=== PATIENT | male | born 1945 | race Caucasian/White ===

== ENCOUNTER 2017-07-05 08:49 | Outpatient (POV) | payer MEDICARE, OTHER, SELFPAY | END 2017-07-05 12:06 | disposition home or self-care (01) | PROVIDERS: Family Provider Family Medicine; PCP Family Medicine; Visit Provider Podiatrist | DX: L84 Corns and callosities (principal); M21.372 Foot drop, left foot; E11.42 Type 2 diabetes mellitus with diabetic polyneuropathy | CPT/HCPCS: 11056; 99203; G0127 ==

== ENCOUNTER → 2017-08-01 | Outpatient (CLI) | payer MEDICARE, OTHER, SELFPAY | PROVIDERS: Visit Provider Orthopaedic Surgery | DX: M16.11 Unilateral primary osteoarthritis, right hip (principal); Z01.818 Encounter for other preprocedural examination | CPT/HCPCS: 36415; 71020; 80053; 81001; 93005 ==

== ENCOUNTER → 2017-08-02 | Outpatient (CLI) | payer MEDICARE, OTHER, SELFPAY | PROVIDERS: Family Provider Family Medicine; Visit Provider Orthopaedic Surgery | DX: M16.12 Unilateral primary osteoarthritis, left hip (principal) | CPT/HCPCS: 73700 ==

== ENCOUNTER 2017-08-07 06:23 | Inpatient (IN) | payer MEDICARE, OTHER, SELFPAY ==
[2017-08-06 11:04] VITALS: BMI 40.8
[2017-08-07] VITALS (28 sets, daily range): BP systolic 96–165; BP diastolic 45–74; PULSE 64–77; RESP 12–20; TEMP 36.3–43; O2SAT 70–99
[2017-08-07 07:38] LABS: Basophils # 0.1 K/mm3 (0-0.2); Basophils % 1.6 % (0.1-2.0); Eosinophils # 0.6 K/mm3 (0.0-0.4); Eosinophils % 7.4 % (0.1-12.0); Hematocrit 43.3 % (42.0-52.0); Hemoglobin 14.2 g/dL (14.1-18.0); Lymphocytes # 1.8 K/mm3 (0.7-4.5); Lymphocytes % 23.7 K/mm3 (10-50); Mean Corpuscular HGB Conc 32.8 g/dL (31.8-35.4); Mean Corpuscular Hemoglobin 30.5 pg (27.0-31.2); Mean Corpuscular Volume 92.9 fl (80-94); Mean Platelet Volume 7.8 fl (7.4-10.4); Monocytes # 0.6 K/mm3 (0.1-1.0); Monocytes % 8.3 % (1.7-9.3); Neutrophils # 4.6 K/mm3 (1.8-7.8); Platelet Count 344 K/mm3 (142-424); Red Blood Count 4.66 M/mm3 (4.60-6.20); Red Cell Distribution Width 13.5 % (11.5-17.5); White Blood Count 7.7 K/mm3 (4.8-10.8)
--- NOTE | 2017-08-07 09:51 | HMH.ANESCL ---
[facility] Anesthesia Checklist - Airway Assessment C-Spine Mobility Assessed: Yes (MP 2) TMJ Mobility Assessed: Yes Dentition: Dentures-good fit - Anesthesia Plan Anesthesia Risk discussed: Yes Anesthesia Plan: Verified ASA Class: II Anesthesia Type: General [facility] Anesthesia HX Medical History: Reports:: Hypertension Denies:: Diabetes Mellitus Type 1, Diabetes Mellitus Type 2, Seizures Comment: Hx of hepatits as a child, unknown type Comment: dental sx *Family Hx:: Asthma, Diabetes, Heart Attack, Hyperlipidemia, Hypertension, Stroke
--- NOTE | 2017-08-07 09:54 | P.PN_ITS ---
[facility] Anesthesia Checklist - Airway Assessment C-Spine Mobility Assessed: Yes (MP 2) TMJ Mobility Assessed: Yes Dentition: Dentures-good fit - Anesthesia Plan Anesthesia Risk discussed: Yes Anesthesia Plan: Verified ASA Class: II Anesthesia Type: General [facility] Anesthesia HX Medical History: Reports:: Hypertension Denies:: Diabetes Mellitus Type 1, Diabetes Mellitus Type 2, Seizures Comment: Hx of hepatits as a child, unknown type Comment: dental sx *Family Hx:: Asthma, Diabetes, Heart Attack, Hyperlipidemia, Hypertension, Stroke
--- NOTE | 2017-08-07 12:23 | SUR.OPER ---
Addendum entered by Gemma Desai RN 08/07/17 12:42: 1200- WOUND IRRIGATED WITH 17.5ML'S OF BETADINE DILUTED IN 500ML'S OF NORMAL SALINE PER MD Original Note: 0950-2 LAP SPONGES INSERTED INTO LEFT ACETABULUM PER 1015-FAMILY UPDATED AT THIS TIME PER LUCIO REYES 1044-ADDITIONAL ANCEF 1GM IVP ADMINISTERED PER HEATHER FRANK ORDERED PER 1052- 2 ADDITIONAL LAP SPONGES INSERTED INTO LEFT ACETABULUM PER 1105-4 LAP SPONGES REMOVED FROM LEFT ACETABULUM PER 1137-FAMILY UPDATED PER LUCIO CROWDER
--- NOTE | 2017-08-07 12:31 | PC.NURSE ---
0800-#16 LIBERIAN COUDAE MYERS CATHETER INSERTED AT THIS TIME FOR SURGICAL PROCEDURE
--- NOTE | 2017-08-07 13:07 | HMH.ANESI ---
[facility] Anesthesia Record Part I Intake, IV Amount: 3,800 Estimated blood loss (mL): 500 Urine output (mL): 250 Blood Products used (#): none Blood Pressure: 98/47 SaO2: 92 Pulse Rate: 66 Respiratory Rate: 12 Temperature: 97.6 F Patient is:: Drowsy Stable to PACU at:: 13:05
--- NOTE | 2017-08-07 13:09 | HMH.ANESII ---
[facility] Anesthesia Record Part II Discharge Time: 13:35 Destination: floor PACU nurse assessment reviewed?: Yes Patient Condition:: Good Anesthesia Complications:: None
--- NOTE | 2017-08-07 13:12 | XR_ITS ---
XR hip LT 2-3V w/pelvis CLINICAL INDICATION: Follow-up surgery, hip replacement ITS.REASON: postop xrays ORDERING PHYSICIAN: Samm Smith MD PATIENT AGE: 71 years COMPARISON: 07/04/2017 FINDINGS: Status post total hip are placement on the left. There is good alignment of the acetabular and femoral prosthesis. Postsurgical gas is present. Vertical lucency overlies the mid aspect of the left inferior pubic ramus and may be related to overlying gas within a soft tissue increase. Soft tissue gas is present in the lateral hip region. IMPRESSION: 1. Status post left hip replacement. 2. Probable artifact of the left inferior pubic ramus. A nondisplaced fracture could have a similar appearance. Pelvic film may be of further value if clinically warranted
--- NOTE | 2017-08-07 14:17 | XR_ITS ---
XR pelvis 1-2V CLINICAL INDICATION: Follow-up abnormal x-ray, follow-up hip replacement ITS.REASON: postop xray ORDERING PHYSICIAN: Samm Smith MD PATIENT AGE: 71 years COMPARISON: 08/07/2017 FINDINGS: Status post total left hip replacement With good alignment of the prosthesis. The central acetabular screw does extend into the pelvis as the medial aspect of the acetabular cortex by approximately 8 mm. Previously noted lucency along the inferior pubic ramus is not redemonstrated on this exam. This was likely due to an artifact. There are mild osteoarthritic changes of the right hip. IMPRESSION: 1. Status post left hip replacement as described above. 2. No evidence of inferior pubic ramus fracture
[2017-08-07 16:50] LABS: Microscopic,Cath URINE MICROSCOPIC (MICROSCOPIC)
--- NOTE | 2017-08-07 17:12 | HMH.OPNOTE ---
Date of procedure: 08/09/17 Pre-op Diagnosis:: Osteoarthritis left hip Post-op diagnosis:: same Procedure performed:: Uncemented left total hip arthroplasty Surgeon:: Samm Smith MD Pinion Sorter(s):: Dr. Guzman; The help of Dr. Guzman was needed given the complexity and difficulty of the procedure. Anesthesia: GETA, MAC Estimated blood loss (mL): 500 Clinical Note:: Patient is a 71-year-old male who has end-stage osteoarthritis of his LEFT hip unresponsive to conservative management. The arthritis is causing severe pain and significant disability and has not responded well to conservative management. He cannot even take a few steps without pain and he is completely dependent on a Esteban frame for mobilization. The pain also is affecting his lifestyle, activities of daily living and significantly impacting his sleep. He in fact stopped working because of the significant pain and disability. He is also at a high risk of falls from his arthritis. His imaging shows marked progression of his arthritis with destruction of the femoral head as well as superolateral acetabulum. Therefore a total hip arthroplasty is indicated to relieve pain and the help prevent the disability and risk of falls. Operative findings:: Intraoperatively, end-stage osteoarthritis of the hip joint was noted. The femoral head was grossly arthritic and misshapen and osteophytes were noted on both the acetabulum and the femoral head. 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 The capsule was thickened and range of motion was markedly decreased. The bone quality was excellent. Operative note:: On the day of the procedure the patient and family were met in the preoperative area and the patient was positively identified. A physical examination was performed and documented. The operative site was appropriately marked and initialed by me. I again reviewed the diagnosis, natural history and management options in detail including both nonsurgical and surgical. We discussed the proposed surgery, risks and benefits and alternatives in detail. The complications discussed include but are not limited to infection, injury to nerves, blood vessels and tendons, DVT and PE, fracture, limb length inequality, dislocation, implant malpositioning, implant failure, squeaking, loosening, acetabular wear, osteolysis, periprosthetic femur fracture, heterotopic ossification, abductor weakness and limp, incomplete relief of pain, likely need for further surgery in future including revision, anesthetic complications including heart attack, stroke and even . We also discussed the postoperative recovery and rehabilitation. He verbalized a good understanding and wished to proceed with the proposed surgery. The consent form was reviewed and signed. The patient was brought to the operating room and a general anesthesia was administered by the property administrator. The patient was then positioned in the RIGHT lateral decubitus position with the LEFT hip facing up. We used Wixon hip positioner for this. All the bony prominences were appropriately padded. The LEFT hip was then prepped with isopropyl alcohol followed by chlorhexidine and draped in the usual sterile fashion. The entire operative team wore isolation suits and the Operating Room traffic was controlled. The skin incision was marked for a posterior approach to the hip joint. The perineum and the operative site were sealed off with Ioban drape. A preprocedure timeout was performed as per hospital protocol identifying the patient, correct surgery and correct site. Administration of 2 g of prophylactic IV Ancef was confirmed with the anesthetic team. Before completion of the procedure 1 more gram of IV Ancef was administered as the operating time was over 2 hours. We have also administered 1g of IV tranexamic acid just before the incision and one more gram at the time of wound closure, to reduce the bleeding. A posterior halley
--- NOTE | 2017-08-07 17:15 | P.OP_ITS ---
Date of procedure: 08/09/17 Pre-op Diagnosis:: Osteoarthritis left hip Post-op diagnosis:: same Procedure performed:: Uncemented left total hip arthroplasty Surgeon:: Samm Smith MD Forensic Accountant(s):: Dr. Guzman; The help of Dr. Guzman was needed given the complexity and difficulty of the procedure. Anesthesia: GETA, MAC Estimated blood loss (mL): 500 Clinical Note:: Patient is a 71-year-old male who has end-stage osteoarthritis of his LEFT hip unresponsive to conservative management. The arthritis is causing severe pain and significant disability and has not responded well to conservative management. He cannot even take a few steps without pain and he is completely dependent on a Esteban frame for mobilization. The pain also is affecting his lifestyle, activities of daily living and significantly impacting his sleep. He in fact stopped working because of the significant pain and disability. He is also at a high risk of falls from his arthritis. His imaging shows marked progression of his arthritis with destruction of the femoral head as well as superolateral acetabulum. Therefore a total hip arthroplasty is indicated to relieve pain and the help prevent the disability and risk of falls. Operative findings:: Intraoperatively, end-stage osteoarthritis of the hip joint was noted. The femoral head was grossly arthritic and misshapen and osteophytes were noted on both the acetabulum and the femoral head. 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 The capsule was thickened and range of motion was markedly decreased. The bone quality was excellent. Operative note:: On the day of the procedure the patient and family were met in the preoperative area and the patient was positively identified. A physical examination was performed and documented. The operative site was appropriately marked and initialed by me. I again reviewed the diagnosis, natural history and management options in detail including both nonsurgical and surgical. We discussed the proposed surgery, risks and benefits and alternatives in detail. The complications discussed include but are not limited to infection, injury to nerves, blood vessels and tendons, DVT and PE, fracture, limb length inequality , dislocation, implant malpositioning, implant failure, squeaking, loosening, acetabular wear, osteolysis, periprosthetic femur fracture, heterotopic ossification, abductor weakness and limp, incomplete relief of pain, likely need for further surgery in future including revision, anesthetic complications including heart attack, stroke and even . We also discussed the postoperative recovery and rehabilitation. He verbalized a good understanding and wished to proceed with the proposed surgery. The consent form was reviewed and signed. The patient was brought to the operating room and a general anesthesia was administered by the civil transportation engineer. The patient was then positioned in the RIGHT lateral decubitus position with the LEFT hip facing up. We used Bubblixon hip positioner for this. All the bony prominences were appropriately padded. The LEFT hip was then prepped with isopropyl alcohol followed by chlorhexidine and draped in the usual sterile fashion. The entire operative team wore isolation suits and the Operating Room traffic was controlled. The skin incision was marked for a posterior approach to the hip joint. The perineum and the operative site were sealed off with Ioban drape. A preprocedure timeout was performed as per hospital protocol identifying the patient, correct surgery and correct site. Administration of 2 g of prophylactic IV Ancef was confirmed with the anesthetic team. Before completion of the procedure 1 more gram
--- NOTE | 2017-08-07 17:15 | PC.NURSE ---
08/07/17 at 1455 Pt transported via bed to 2nd floor at this time per LUCIO Wayne and LUCIO Lopez. Pt transported on O2 at 2lpm per nc because has had pain medications while in PACU/ sats lower to mid 90's on room air/ o2 in use for transport as precaution. Pt alert and talking with staff during transfer. Pt left in care of LUCIO Epps at bedside/stable.
--- NOTE | 2017-08-07 17:21 | PC.NURSE ---
08/07/17 1318 Pt was medicated with Morphine 2mg IV for c/o R shoulder pain. Dr. Smith was notified while he was at pt's bedside that pt c/o R shoulder pain. states more than likely due to positioning during surgery while in OR. Pt rates pain 10/10 and is moaning and nearly in tears due to pain. 08/07/17 1323 Pt medicated with Morphine 2mg IV for R shoulder pain rated 10/10. Pt moaning and very restless. 08/07/17 1335 Pt was medicated with Dilaudid 1mg IV for R shoulder pain rated 8/10 at this time. Denies L hip pain 08/07/17 1345 Pt was medicated with Dilaudid 1mg IV for R shoulder pain rated 8/10 at this time. Pt has received total of 2mg Dilaudid in PACU.
--- NOTE | 2017-08-07 17:27 | PC.NURSE ---
08/07/17 1455 Pt has had abductor pillow in use since arrival to PACU. Abductor pillow in use on transfer to 2nd floor as well.
[2017-08-07 18:08] LABS: Appearance,Urine/Cath CLEAR (Clear); Bilirubin,Cath Negative (Negative); Blood, Urine/Cath Negative (Negative); Color,Urine/Cath YELLOW (Yellow); Glucose,Urine/Cath (UA) Negative (Negative); Ketones,Urine/Cath Negative (Negative); Leukocyte Esterase,Cath Negative (Negative); Nitrate,Cath Negative (Negative); PH,Urine/Cath 6.5 (5.0-8.5); Protein,Urine/Cath Negative (Negative); Specific Gravity, Urine/Cath 1.015 (1.005-1.030)
[2017-08-07 18:34] LABS: RBC,Urine/Cath Occasional # /hpf (0-3); Squamous Epithelial Ur./Cath Occasional #/hpf (0-5); WBC,Urine/Cath Occasional #/hpf (0-3)
[2017-08-07 18:35] LABS: Bacteria,Urine/Cath TRACE /lpf; Mucus,Urine/Cath Trace /lpf
--- NOTE | 2017-08-07 18:56 | PC.NURSE ---
PATIENT ADMITTED TODAY WITH LEFT TOTAL HIP ARTHROPATHY , PER DR. DORMAN. PATIENTS DRESSING IS C/D/I. STARTED CORE PILER PUMP ON PATIENT AND HAS HAD NO COMPLAINTS OF PAIN. PATIENT RESTING IN BED , EATING DINNER AT THIS TIME. FAMILY AT BEDSIDE. VITAL SIGNS ARE STABLE, LUNG SOUNDS ARE CLEAR. WILL CONTINUE TO MONITOR AND GIVE REPORT TO ONCOMING NURSE.
[2017-08-08] VITALS (7 sets, daily range): BP systolic 127–155; BP diastolic 52–63; PULSE 69–86; RESP 16–22; TEMP 36.3–36.9; O2SAT 96–98
--- NOTE | 2017-08-08 05:04 | PC.NURSE ---
LAYING IN BED RESTING AT THIS TIME. HAS USED PAIN PUMP A FEW TIMES. STATES PAIN IS MANAGED. DRESSING IS INTACT ON HIP, NO S/SX OF BLEEDING. STATES HAS REST OK THIS SHIFT. LUNGS ARE CLEAR, RESP EVEN AND NONLABORED. HAS ROBERTO INSTRUCTED TO USE INCENTIVE SPIROMETER WHILE AWAKE. HAS BEEN NSR. MYERS IS PATENT AND DRAINING AT BEDSIDE. HAS A CONSULT WITH CASE MANAGEMENT ABOUT DISCHARGE PLANS. STATES HAS NO NEEDS AT THIS TIME. BED IS LOCKED IN LOW POSITION, SIDE RALES UP X 2. CALL LIGHT WITHIN REACH. WILL CONTINUE TO MONITOR.
--- NOTE | 2017-08-08 06:03 | PC.NURSE ---
pts wt was obatined with pt having a wedge
--- NOTE | 2017-08-08 06:40 | HMH.CONS ---
*Admission Date: 08/07/17 *Chief complaint: Postop left hip replacement *History of present illness: 71-year-old male underwent left hip replacement by Dr. Smith yesterday morning. I have been consulted for medical management. This morning patient feels well. He describes pain as a burning sensation. He has not been out of bed yet. Otherwise he feels well. [facility] History Medical History: Reports:: Hypertension Denies:: Cancer, Diabetes Mellitus Type 1, Diabetes Mellitus Type 2, MRSA, Seizures Other Medical History: Reports: Arthritis Other Surgeries: Yes: No Previous Surgery Amputation: No - *Social History Educational Level: Attended College Smoking Status: Current some day smoker Tobacco Type: cigarettes # Packs/Day (cigarettes): 1 #Yrs smoked (if former smoker): 8 Alcohol Intake: never Occupational Status: retired Housing: house Household Members: spouse - Psychiatric History Expresses thoughts of harming self/others: None Suicide Plan Description: No Plan *Family Hx:: Asthma, Diabetes, Heart Attack, Hyperlipidemia, Hypertension, Stroke Review of Systems - Review of Systems Review of systems:: pertinent systems reviewed and negative unless documented below - *Musculoskeletal Reports joint pain, Reports back pain Meds Home Medications Medication Instructions Recorded Confirmed Type Amlodipine Besylate [Amlodipine 10 mg PO DAILY 08/06/17 08/07/17 History 10mg Tab] Cyclobenzaprine HCl 10 mg PO TID 08/06/17 08/07/17 History [Cyclobenzaprine 10mg Tab] Diclofenac Sodium [Diclofenac 75mg 75 mg PO BID 08/06/17 08/07/17 History Tab] Gabapentin [Gabapentin 100mg Cap] 100 mg PO DAILY 08/06/17 08/07/17 History Glucosa Zamora 2Kcl/Chondroitin Zamora 1 each PO DAILY 08/06/17 08/07/17 History [Glucosamine & Chondroitin Cap] Tramadol HCl [Ultram 50mg 50 mg PO Q6HP PRN 08/06/17 08/07/17 History tablet] Allergies Allergy/AdvReac Type Severity Reaction Status Date / Time No Known Allergies Allergy Verified 08/06/17 08:29 Exam Vital signs and Labs for Last 24 Hours: Temp Pulse Resp BP Pulse Ox 97.4 F L 69 20 127/61 96 08/08/17 04:08 08/08/17 04:08 08/08/17 04:08 08/08/17 04:08 08/08/17 04:08 Short CBC 08/07/17 Range/Units 07:27 WBC 7.7 (4.8-10.8) K/mm3 Hgb 14.2 (14.1-18.0) g/dL Hct 43.3 (42.0-52.0) % Plt Count 344 (142-424) K/mm3 Urine 08/07/17 Range/Units 08:00 Urine Color Yellow (Yellow) Urine Appearance Clear (Clear) Urine pH 6.5 (5.0-8.5) Ur Specific Mathis 1.015 (1.005-1.030) Urine Protein Negative (Negative) Urine Glucose (UA) Negative (Negative) I & O for Last 24 hours: Intake & Output 08/05/17 08/06/17 08/07/17 08/08/17 11:59 11:59 11:59 11:59 Intake Total 3950 / 3950 Output Total 1900 / 1900 Balance 2049 / 2049 Narrative: Patient is awake in bed this morning. He is in no distress. Nasal cannula is in place. HEENT exam is grossly normal. Neck is without carotid bruits or jugular venous distention. Lungs are clear to auscultation. Heart has a regular rate and rhythm without murmur. Abdomen is obese and soft. Patient can move all extremities and is neurovascularly intact in the distal left leg and foot. Internal Medicine - CN: Reslt - Labs CBC & Chem 7: 08/07/17 07:27 Labs: Short CBC 08/07/17 Range/Units 07:27 WBC 7.7 (4.8-10.8) K/mm3 Hgb 14.2 (14.1-18.0) g/dL Hct 43.3 (42.0-52.0) % Plt Count 344 (142-424) K/mm3 Urine 08/07/17 Range/Units 08:00 Urine Color Yellow (Yellow) Urine Appearance Clear (Clear) Urine pH 6.5 (5.0-8.5) Ur Specific Mathis 1.015 (1.005-1.030) Urine Protein Negative (Negative) Urine Glucose (UA) Negative (Negative) Assessment and Plan (1) Status post left hip replacement Current visit: Yes Status: Acute Category: Surgical Code(s): Z96.642 - Presence of left artificial hip
--- NOTE | 2017-08-08 06:44 | P.CONS_ITS ---
*Admission Date: 08/07/17 *Chief complaint: Postop left hip replacement *History of present illness: 71-year-old male underwent left hip replacement by Dr. Smith yesterday morning. I have been consulted for medical management. This morning patient feels well. He describes pain as a burning sensation. He has not been out of bed yet. Otherwise he feels well. [facility] History Medical History: Reports:: Hypertension Denies:: Cancer, Diabetes Mellitus Type 1, Diabetes Mellitus Type 2, MRSA, Seizures Other Medical History: Reports: Arthritis Other Surgeries: Yes: No Previous Surgery Amputation: No - *Social History Educational Level: Attended College Smoking Status: Current some day smoker Tobacco Type: cigarettes # Packs/Day (cigarettes): 1 #Yrs smoked (if former smoker): 8 Alcohol Intake: never Occupational Status: retired Housing: house Household Members: spouse - Psychiatric History Expresses thoughts of harming self/others: None Suicide Plan Description: No Plan *Family Hx:: Asthma, Diabetes, Heart Attack, Hyperlipidemia, Hypertension, Stroke Review of Systems - Review of Systems Review of systems:: pertinent systems reviewed and negative unless documented below - *Musculoskeletal Reports joint pain, Reports back pain Meds Home Medications Medication Instructions Recorded Confirmed Type Amlodipine Besylate [Amlodipine 10 mg PO DAILY 08/06/17 08/07/17 History 10mg Tab] Cyclobenzaprine HCl 10 mg PO TID 08/06/17 08/07/17 History [Cyclobenzaprine 10mg Tab] Diclofenac Sodium [Diclofenac 75mg 75 mg PO BID 08/06/17 08/07/17 History Tab] Gabapentin [Gabapentin 100mg Cap] 100 mg PO DAILY 08/06/17 08/07/17 History Glucosa Zamora 2Kcl/Chondroitin Zamora 1 each PO DAILY 08/06/17 08/07/17 History [Glucosamine & Chondroitin Cap] Tramadol HCl [Ultram 50mg 50 mg PO Q6HP PRN 08/06/17 08/07/17 History tablet] Allergies Allergy/AdvReac Type Severity Reaction Status Date / Time No Known Allergies Allergy Verified 08/06/17 08:29 Exam Vital signs and Labs for Last 24 Hours: Temp Pulse Resp BP Pulse Ox 97.4 F L 69 20 127/61 96 08/08/17 04:08 08/08/17 04:08 08/08/17 04:08 08/08/17 04:08 08/08/17 04:08 Short CBC 08/07/17 Range/Units 07:27 WBC 7.7 (4.8-10.8) K/mm3 Hgb 14.2 (14.1-18.0) g/dL Hct 43.3 (42.0-52.0) % Plt Count 344 (142-424) K/mm3 Urine 08/07/17 Range/Units 08:00 Urine Color Yellow (Yellow) Urine Appearance Clear (Clear) Urine pH 6.5 (5.0-8.5) Ur Specific Cedar 1.015 (1.005-1.030) Urine Protein Negative (Negative) Urine Glucose (UA) Negative (Negative) I & O for Last 24 hours: Intake & Output 08/05/17 08/06/17 08/07/17 08/08/17 11:59 11:59 11:59 11:59 Intake Total 3950 / 3950 Output Total 1900 / 1900 Balance 2049 / 2049 Narrative: Patient is awake in bed this morning. He is in no distress. Nasal cannula is in place. HEENT exam is grossly normal. Neck is without carotid bruits or jugular venous distention. Lungs are clear to auscultation. Heart has a regular rate and rhythm without murmur. Abdomen is obese and soft. Patient can move all extremities an
--- NOTE | 2017-08-08 07:09 | PC.NURSE ---
Email obtained. Brochure given.
[2017-08-08 07:15] LABS: Basophils % 0.1 % (0.1-2.0); Eosinophils % 0.1 % (0.1-12.0); Lymphocytes # 1.2 K/mm3 (0.7-4.5); Lymphocytes % 8.4 K/mm3 (10-50); Mean Corpuscular HGB Conc 31.7 g/dL (31.8-35.4); Mean Corpuscular Hemoglobin 29.9 pg (27.0-31.2); Mean Corpuscular Volume 94.2 fl (80-94); Mean Platelet Volume 8.4 fl (7.4-10.4); Monocytes # 1.1 K/mm3 (0.1-1.0); Monocytes % 7.7 % (1.7-9.3); Neutrophils # 11.9 K/mm3 (1.8-7.8); Neutrophils % 83.6 % (37.0-80.0); Platelet Count 302 K/mm3 (142-424); Red Blood Count 3.82 M/mm3 (4.60-6.20); Red Cell Distribution Width 13.5 % (11.5-17.5); White Blood Count 14.2 K/mm3 (4.8-10.8)
--- NOTE | 2017-08-08 07:22 | CARE MANAGER ---
This patient admitted to [facility] with a total left hip, he has a skilled bed in [place] at one of the [facility] facilities..He had surgery yesterday and is doing well.. His discharge should be the end of the week, pending nothing acute should happen.. CM will follow and assist if there is a need..
[2017-08-08 07:30] LABS: Blood Urea Nitrogen 16 mg/dL (7-18); Carbon Dioxide 27 mmol/L (21.0-32.0); Chloride 106 mmol/L (98-107); Creatinine Clearance Estimated 109 mg/ml (0-300); Creatinine,Serum 1.12 mg/dL (0.70-1.30); Estimated Glomerular Filt Rate > 60 ml/min (>60); GFR (African American) > 60 ML/MIN (>60); Glucose 121 mg/dL (74-106); Sodium 139 mmol/L (136-145)
--- NOTE | 2017-08-08 07:33 | P.CONPHA_ITS ---
[facility] Pharmacy VTE Monitoring - Patient Demographics Admission date: 08/07/17 Report Date: 08/08/17 Time: 07:33 Allergies/Adverse Reactions: No Known Allergies Allergy (Verified 08/06/17 08:29) Height: 1.78 m Weight: 126.127 kg Patient Problems: Current Active Problems History of total left hip arthroplasty (Acute) Hypertension (Acute) Status post left hip replacement (Acute) - VTE Risk Labs: VTE Related Lab Results Hgb 14.2 g/dL (14.1-18.0) 08/07/17 07:27 Hct 36.0 % (42.0-52.0) L 08/08/17 06:50 Plt Count 302 K/mm3 (142-424) 08/08/17 06:50 BUN 16 mg/dL (7-18) 08/08/17 06:50 Creatinine 1.12 mg/dL (0.70-1.30) 08/08/17 06:50 Estimated Creat Clear 109 mg/ml (0-300) 08/08/17 06:50 Was VTE Risk Assessment Performed: No VTE Risk Level: Very Low Risk Clinical Trial Participant: No - Prophylaxis Types of VTE Prophylaxis: IPCS Knee High Location of Applied Device: Right Leg Pharmacologic Type: Enoxaparin
[2017-08-08 07:39] LABS: Hemoglobin 11.6 g/dL (14.1-18.0)
--- NOTE | 2017-08-08 08:29 | PC.NURSE ---
PT HAS ORTHOPEDIC WEDGE IN PLACE
--- NOTE | 2017-08-08 09:21 | HMH.PTEV ---
Physical Therapy Evaluation Rehab PT IP Evaluation Start: 08/07/17 13:06 Freq: ONCE Status: Active Protocol: Document 08/08/17 09:10 PHORNE (Rec: 08/08/17 09:21 PHORNE [id number]) Subjective/History History History 71 yom adm to [facility] with left hip pain, now s/p left ADRIAN. Subjective Subjective pt c/o mild/mod left hip pain, but overall feeling good. Rehab PT IP Eval Objective Appearance Patient Behavior Appropriate Patient Orientation Person Place Time Name Birthday Month Year Situation Difficulty following instructions none Speech Pattern Clear Appropriate Ambulation Patient Able to Ambulate Yes Ambulation Observation IP General Gait Pattern Observation Decrease Weight Bear (L) Decrease Stride Lngth (L) Ambulation Distance (feet) 5 Ambulation Assistive Device Rolling Walker Balance Ability to Arise Able, uses arms to help Sitting Balance Steady, safe Dynamic Sitting Balance Ability Normal Dynamic Standing Balance Ability Normal Transfers Bed Transfer Ability Minimal x 1 (25% assist) Chair Transfer Ability Minimal x 1 (25% assist) Sit to Stand Bed Transfer Ability Minimal x 1 (25% assist) Sit to Stand Chair Transfer Ability Minimal x 1 (25% assist) Pain Left Hip Pain Intensity 5 ROM LLE PT ROM Status WFL MMT LLE Abnormal MMT Grade hip flex and abd 2/5 Rehab PT IP prob,goals,plan Problems Date of Evaluation: 08/08/17 PT IP Problems Bed Mobility Transfers Gait Rehab Potential Rehab Potential Good Equipment Needs Assistive Devices Rolling / Wheeled Walker Plan PT Intervention Plan Bed Mobility Transfers Gait Therapeutic Exercise Other Intervention Plan post hip precautions PT Plan Frequency BID Duration LOS Discharge Goals Bed Transfer Ability Contact Guard/Hand Hold Sit to Stand Chair Transfer Ability Contact Guard/Hand Hold Ambulation Assistive Device Rolling Walker Ambulation Distance (feet) 25 Discharge Plan PT Discharge Plan Pt is most appropriate for rehab [facility]
--- NOTE | 2017-08-08 11:00 | CARE MANAGER ---
Alex Zuñiga was admitted ACUTE s/p TOTAL HIP. CM staff will follow and assist as needed. materials planner will speak with him later today.
--- NOTE | 2017-08-08 11:28 | P.PN_ITS ---
Subjective Date: 08/08/17 Time: 11:00 Principal diagnosis: S/P Total Hip Arthroplasty, LEFT Interval history: He is status post total hip arthroplasty, post op day # 1. He says he is doing well and reports no problems. His pain is well controlled with medication. He is eating and drinking well. No history of any fevers, chills or rigors. No history of any cough, chest pain, shortness of breath or palpitations. No history of any distal tingling or numbness. PN: Obj Ex Vital signs: Temp Pulse Resp BP Pulse Ox 98.2 F 86 20 133/59 97 08/08/17 07:57 08/08/17 07:57 08/08/17 07:57 08/08/17 07:57 08/08/17 08:48 Narrative: Exam General appearance: normal appearance, alert, active, no acute distress Eyes: normal exam ENT: mucous membranes moist Neck: normal inspection Cardiovascular: normal sinus rhythm, regular rate & rhythm Respiratory: clear to auscultation, normal breath sounds ABD: soft, no tenderness Neuro: alert, no deficit, normal mood/affect On examination of his lower extremities the limb lengths are equal. His thigh and calf are soft and nontender. On examination of the LEFT hip the dressings are clean, dry and intact. His thigh and calf are soft and nontender. Distal pulses are 2+. Distal sensation and movements are intact. - Urinary Catheter Management Nava Cath placed during this visit: yes Urethral indwelling: Yes Reason for continuing: Decision to DC catheter (today) Insertion date: 08/07/17 Insertion time: 08:00 Progress Note: A&P (1) Status post left hip replacement Start date: 08/07/17 Status: Acute Assessment and plan: Ambulate Weight bearing as tolerated, DVT prophylaxis, Precautions (posterior hip precautions) I reviewed the intraoperative findings and procedure with the patient. He started physical therapy and mobilization today. Discontinue IV fluids as he is eating and drinking well. Discontinue GLASS BEVELER and continue oral pain medication as needed. Discontinue Nava?s catheter. Continue IV Ancef, 1gm, Q8H for another 24 hours inveiw of scratch bolton/rash over the operative site. Continue DVT prophylaxis. Care management consult regarding discharge planning- patient wants to go to SNF for rehab. Continue abduction pillow when in bed and continue standard precautions for the posterior approach hip replacement. Continue physical therapy. Medical management as per Dr. Donaldson. Current Visit: Yes
--- NOTE | 2017-08-08 12:24 | PC.NURSE ---
PT IS SITTING UP IN THE CHAIR WITH FAMILY IN THE ROOM AT THIS TIME, DR. DORMAN CAME TO SEE PT TODAY AND STATED THAT IVF AND JUDICIAL LAW CLERK PUMP CAN BE DC'D AND CATHETER CAN BE REMOVED. HE ALSO WANTED PT TO CONTINUE IV ABX FOR ANOTHER 24 HRS. LUNGS SOUNDS CLEAR, BOWEL SOUNDS NORMAL, DRESSING TO THE LEFT HIP IS C/D/I AND IS NOT TO BE CHANGED UNTIL TOMORROW. WILL CONTINUE TO MONITOR.
--- NOTE | 2017-08-09 03:53 | PC.NURSE ---
LAYING IN BED RESTING AT THIS TIME. HAS HAD PAIN MEDICATION ONE TIME THIS SHIFT. STATES MOSTLY HURTS WHEN MOVING. PAIN AT THIS TIME IS 5/10 IN LEFT HIP. WILL ADMINISTER PAIN MEDICATION. HAS ABDUCTION PILLOW PLACED. LUNGS ARE CLEAR, RESP EVEN AND NONLABORED, NO S/SX OF INFECTION NOTED. URINATED 2 X THIS SHIFT. NO COMPLICATIONS NOTED. BED LOCKED IN LOW POSITION, SIDE RALES UP X 2 CALL LIGHT WITHIN REACH. WILL CONTINUE TO MONITOR.
[2017-08-09 04:00] VITALS: BP 153/67; PULSE 82; RESP 16; TEMP 37.7; O2SAT 94
[2017-08-09 06:57] LABS: Basophils # 0.1 K/mm3 (0-0.2); Basophils % 0.5 % (0.1-2.0); Eosinophils # 0.2 K/mm3 (0.0-0.4); Eosinophils % 1.7 % (0.1-12.0); Hematocrit 32.2 % (42.0-52.0); Lymphocytes # 1.9 K/mm3 (0.7-4.5); Lymphocytes % 16.3 K/mm3 (10-50); Mean Corpuscular HGB Conc 31.7 g/dL (31.8-35.4); Mean Corpuscular Hemoglobin 29.9 pg (27.0-31.2); Mean Corpuscular Volume 94.4 fl (80-94); Mean Platelet Volume 8.2 fl (7.4-10.4); Monocytes # 1.1 K/mm3 (0.1-1.0); Monocytes % 9.8 % (1.7-9.3); Neutrophils # 8.3 K/mm3 (1.8-7.8); Neutrophils % 71.7 % (37.0-80.0); Platelet Count 273 K/mm3 (142-424); Red Blood Count 3.41 M/mm3 (4.60-6.20); Red Cell Distribution Width 13.7 % (11.5-17.5); White Blood Count 11.6 K/mm3 (4.8-10.8)
--- NOTE | 2017-08-09 07:08 | HMH.ACPN ---
Internal Medicine - PN: Subj *Date: 08/09/17 *Time: 07:08 Interval history: Patient reports no new problems. He was evaluated and ambulated with physical therapy yesterday. Denies chest pain or shortness of breath. Vital signs reviewed. Lungs are clear to auscultation. Heart has a regular rate and rhythm. Abdomen is obese and soft. Continue current care. Anticipate discharge to residential facility tomorrow Exam Vital signs and Labs for Last 24 Hours: Temp Pulse Resp BP Pulse Ox 99.8 F H 82 16 153/67 94 L 08/09/17 04:00 08/09/17 04:00 08/09/17 04:00 08/09/17 04:00 08/09/17 04:00 Short CBC 08/08/17 Range/Units 06:50 WBC 14.2 H D (4.8-10.8) K/mm3 Hgb 11.6 L D (14.1-18.0) g/dL Hct 36.0 L (42.0-52.0) % Plt Count 302 (142-424) K/mm3 BMP 08/08/17 06:50 Sodium 139 Potassium 4.0 Chloride 106 Carbon Dioxide 27 BUN 16 Creatinine 1.12 Glucose 121 H I & O for Last 24 hours: Intake & Output 08/06/17 08/07/17 08/08/17 08/09/17 11:59 11:59 11:59 11:59 Intake Total 3950 / 3950 Output Total 1900 / 1900 450 / 450 Balance 2049 / 2049 -450 / -450 Assessment and Plan (1) Status post left hip replacement Current visit: Yes Status: Acute Category: Surgical Code(s): Z96.642 - Presence of left artificial hip joint (2) Hypertension Current visit: Yes Status: Acute Category: Medical Code(s): I10 - Essential (primary) hypertension
[2017-08-09 07:10] LABS: Anion Gap 9.5 mEq/L (5-15); Blood Urea Nitrogen 21 mg/dL (7-18); Carbon Dioxide 26 mmol/L (21.0-32.0); Chloride 108 mmol/L (98-107); Creatinine Clearance Estimated 120 mg/ml (0-300); Creatinine,Serum 1.04 mg/dL (0.70-1.30); Estimated Glomerular Filt Rate > 60 ml/min (>60); GFR (African American) > 60 ML/MIN (>60); Glucose 107 mg/dL (74-106); Potassium 3.5 mmoL/L (3.5-5.1); Sodium 140 mmol/L (136-145)
[2017-08-09 07:30] VITALS: BP 143/68; PULSE 76; RESP 20; TEMP 36.9; O2SAT 93
[2017-08-09 07:52] LABS: Hemoglobin 10.3 g/dL (14.1-18.0)
--- NOTE | 2017-08-09 09:30 | CARE MANAGER ---
MR FELIX IS PROGRESSING WELL AND WILL CONTINUE WITH PT TODAY. HIS LABS ARE IN ACCEPTABLE RANGE AND IF ALL GOES ACCORDING TO PLAN HE WILL DISCHARGE TO [facility] IN AM FOR CONTINUED REHAB. CM STAFF WILL CONTINUE TO MONITOR AND ASSIST IN HIS NEEDS,.
--- NOTE | 2017-08-09 14:03 | PC.NURSE ---
PT IS SITTING UP IN THE CHAIR WITH FAMILY IN THE ROOM, PT HAS BEEM AMBULATING WITH PHYSICAL THERAPY, RECEIVING PAIN MEDICATION NEEDED, ALERT AND ORIENTED X3, PT' DRESSING WILL BE CHANGED AFTER FAMILY LEAVES THE ROOM. LUNG SOUNDS CLEAR, BOWEL SOUNDS NORMAL. WILL CONTINUE TO MONITOR.
--- NOTE | 2017-08-09 14:09 | HMH.ORTHPN ---
Subjective Date: 08/09/17 Time: 12:30 Principal diagnosis: S/P Total Hip Arthroplasty, LEFT Interval history: Patient is status post LEFT total hip arthroplasty post op day # 2. Patient is sitting out in the chair. Says he is doing well and reports no problems. He has minimal pain and says it's well-controlled with medication. No history of any nausea or vomiting. No history of any cough, chest pain, shortness of breath or palpitations. He says he is eating and drinking well. 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 His thigh and calf are soft and nontender. On examination of his LEFT hip the dressings are clean, dry and intact. The dressings were changed by me. There is a minimal of soakage of the dressings. The wound looks clean and healthy. No evidence of any infection or other complications. Distal pulses are 2+; Distal sensation is intact - Urinary Catheter Management Nava Cath placed during this visit: yes, but has since been removed by the nurse Urethral indwelling: No Insertion date: 08/07/17 Insertion time: 08:00 Removal date: 08/08/17 Progress Note: A&P (1) Status post left hip replacement Start date: 08/07/17 Status: Acute Assessment and plan: Status post LEFT total hip arthroplasty, postoperative day 2, doing well Plan: Ambulate, DVT prophylaxis, Precautions (posterior hip precautions) Overall he is doing very well and reports no problems. He is mobilizing well with the walker and to continue the same. Use abduction pillow when in bed and continue using this for 6 weeks postop. Continue standard precautions for posterior approach to the hip joint. Continue DVT prophylaxis for 5 weeks (Appropriate agents include [id number] aspirin, subcu Lovenox, warfarin, Xarelto, Eliquis and similar). Continue physical therapy. The dressings were changed by me today and the wound looks healthy. Plan for discharge to SNF tomorrow if cleared by physical therapy and care management. Medical management as per Dr. Donaldson. Current Visit: Yes
--- NOTE | 2017-08-09 14:14 | P.PN_ITS ---
Subjective Date: 08/09/17 Time: 12:30 Principal diagnosis: S/P Total Hip Arthroplasty, LEFT Interval history: Patient is status post LEFT total hip arthroplasty post op day # 2. Patient is sitting out in the chair. Says he is doing well and reports no problems. He has minimal pain and says it's well-controlled with medication. No history of any nausea or vomiting. No history of any cough, chest pain, shortness of breath or palpitations. He says he is eating and drinking well. PN: Obj Ex Vital signs: Temp Pulse Resp BP Pulse Ox 98.5 F 76 20 143/68 93 L 08/09/17 07:30 08/09/17 07:30 08/09/17 07:30 08/09/17 07:30 08/09/17 07:30 - Additional findings Additional findings: Exam General appearance: alert, active, awake, no acute distress Eyes: normal exam ENT: normal exam Neck: normal inspection Cardiovascular: no ectopics, regular rate & rhythm, normal peripheral pulses , tachycardia Respiratory: clear to auscultation, normal breath sounds ABD: normal exam Genitourinary: normal voiding & quantity, no dysuria Neuro: alert, core drier II-XII nml as tested, no deficit, normal mood/affect, oriented On examination of his lower extremities the limb lengths are equal. His thigh and calf are soft and nontender. On examination of his LEFT hip the dressings are clean, dry and intact. The dressings were changed by me. There is a minimal of soakage of the dressings. The wound looks clean and healthy. No evidence of any infection or other complications. Distal pulses are 2+; Distal sensation is intact - Urinary Catheter Management Nava Cath placed during this visit: yes, but has since been removed by the nurse Urethral indwelling: No Insertion date: 08/07/17 Insertion time: 08:00 Removal date: 08/08/17 Progress Note: A&P (1) Status post left hip replacement Start date: 08/07/17 Status: Acute Assessment and plan: Status post LEFT total hip arthroplasty, postoperative day 2, doing well Plan: Ambulate, DVT prophylaxis, Precautions (posterior hip precautions) Overall he is doing very well and reports no problems. He is mobilizing well with the walker and to continue the same. Use abduction pillow when in bed and continue using this for 6 weeks postop. Continue standard precautions for posterior approach to the hip joint. Continue DVT prophylaxis for 5 weeks ( Appropriate agents include [id number] aspirin, subcu Lovenox, warfarin, Xarelto, Eliquis and similar). Continue physical therapy. The dressings were changed by me today and the wound looks healthy. Plan for discharge to SNF tomorrow if cleared by physical therapy and care management. Medical management as per Dr. Donaldson. Current Visit: Yes
[2017-08-09 15:46] VITALS: BP 147/65; PULSE 89; RESP 20; TEMP 37.2; O2SAT 94
[2017-08-09 20:00] VITALS: BP 166/62; PULSE 94; RESP 18; TEMP 37.1; O2SAT 98
--- NOTE | 2017-08-10 03:18 | PC.NURSE ---
SITTING UP IN CHAIR. HAS NAPPED THROUGHOUT THE NIGHT. STATES HE HAS SLEPT IN CHAIR FOR THE PAST 7-8 MONTHS DUE TO PAIN IN HIP. LUNGS WERE CLEAR, RESP EVEN AND NONLABORED. POSITIVE BOWEL SOUNDS X 4. STATES HAS NOT HAD A BOWEL MOVEMENT SINCE SUNDAY. SAYS THIS IS HIS NORM. IS ON A BOWEL REGIMEN. DSG TO RIGHT HIP C/D/I. JUST GAVE PAIN MEDICATION DUE TO PAIN IN HIP. IV IS PATENT. STATES HAS NO OTHER NEEDS AT THIS TIME. CALL LIGHT AND BEDSIDE TABLE WITHIN REACH. ENCOURAGED TO CALL OUT IF ANY NEEDS. WILL CONTINUE TO MONITOR.
[2017-08-10 04:00] VITALS: BP 167/74; PULSE 88; RESP 16; TEMP 36.9; O2SAT 94
--- NOTE | 2017-08-10 07:12 | P.PN_ITS ---
Internal Medicine - PN: Subj *Date: 08/10/17 *Time: 07:10 Interval history: Patient is postop day 3 left total hip arthroplasty he feels well. He is progressing well with physical therapy. He denies complaints. He awakens easily. He is in no distress. Lungs are clear to auscultation. Heart has a regular rate and rhythm. Plan will be discharged to [facility] today to continue physical therapy. Home medicines have been reconciled. Exam Vital signs and Labs for Last 24 Hours: Temp Pulse Resp BP Pulse Ox 98.5 F 88 16 167/74 94 L 08/10/17 04:00 08/10/17 04:00 08/10/17 04:00 08/10/17 04:00 08/10/17 04:00 Short CBC 08/09/17 Range/Units 06:23 WBC 11.6 H (4.8-10.8) K/mm3 Hgb 10.3 L D (14.1-18.0) g/dL Hct 32.2 L (42.0-52.0) % Plt Count 273 (142-424) K/mm3 BMP 08/09/17 06:23 Sodium 140 Potassium 3.5 Chloride 108 H Carbon Dioxide 26 BUN 21 H D Creatinine 1.04 Glucose 107 H Vital Signs - 24 hr 08/09/17 07:30 08/09/17 15:46 08/09/17 20:00 Temperature 98.5 F 98.9 F 98.8 F Pulse Rate [Left Brachial] 76 89 94 H Respiratory Rate 20 20 18 Blood Pressure [Left Arm] 143/68 147/65 166/62 02 Sat by Pulse Oximetry 93 L 94 L 98 08/10/17 04:00 Temperature 98.5 F Pulse Rate [Left Brachial] 88 Respiratory Rate 16 Blood Pressure [Left Arm] 167/74 02 Sat by Pulse Oximetry 94 L I & O for Last 24 hours: Intake & Output 08/07/17 08/08/17 08/09/17 08/10/17 11:59 11:59 11:59 11:59 Intake Total 3950 / 3950 1999 Output Total 1900 / 1900 450 / 450 1750 / 1750 Balance 2049 / 2049 -450 / -450 250 / 250 Assessment and Plan (1) Status post left hip replacement Current visit: Yes Status: Acute Category: Surgical Code(s): Z96.642 - Presence of left artificial hip joint (2) Hypertension Current visit: Yes Status: Acute Category: Medical Code(s): I10 - Essential (primary) hypertension
--- NOTE | 2017-08-10 07:29 | P.DS_ITS ---
General - General Admission date: 08/07/17 Discharge date: 08/10/17 HPI HPI: 71-year-old male with severe left hip osteoarthritis was admitted to the hospital on August 07 to undergo elective total left hip arthroplasty. Objective Vital signs: Temp Pulse Resp BP Pulse Ox 98.5 F 88 16 167/74 94 L 08/10/17 04:00 08/10/17 04:00 08/10/17 04:00 08/10/17 04:00 08/10/17 04:00 Hospital Course Hospital Course: Patient underwent 6 full left total hip arthroplasty on August 07. Postdivorce was uneventful. Patient was kept on Lovenox for DVT prophylaxis. The day following surgery physical therapy was consulted and began rehabilitation process with the patient. On August 10 after qualifying stay patient was discharged to [facility] to continue rehabilitation from surgery. Postop instructions are as follows: Use abduction pillow when in bed and continue using this for 6 weeks postop. Continue standard precautions for posterior approach to the hip joint. Continue DVT prophylaxis for 5 weeks Blood pressure was controlled with home medications while hospitalized of amlodipine 10 mg Rehab potential: Good Mental status: Average Prognosis: Good Results Labs on day of discharge: Labs from last 24 hours 08/09/17 08/09/17 06:23 06:23 WBC 11.6 H RBC 3.41 L Hgb 10.3 L D Hct 32.2 L MCV 94.4 H MCH 29.9 MCHC 31.7 L RDW 13.7 Plt Count 273 MPV 8.2 Neut % (Auto) 71.7 Lymph % (Auto) 16.3 Churchill % (Auto) 9.8 H Eos % (Auto) 1.7 Baso % (Auto) 0.5 Neut # (Auto) 8.3 H Lymph # (Auto) 1.9 Churchill # (Auto) 1.1 H Eos # (Auto) 0.2 Baso # (Auto) 0.1 Sodium 140 Potassium 3.5 Chloride 108 H Carbon Dioxide 26 Anion Gap 9.5 BUN 21 H D Creatinine 1.04 Estimated Creat Clear 120 Estimated GFR > 60 Est GFR ( Amer) > 60 Glucose 107 H DS: Diagnosis - Discharge Diagnosis (1) Status post left hip replacement Status: Acute (2) Hypertension Status: Acute Meds Home Medications Medication Instructions Recorded Confirmed Type Amlodipine Besylate [Amlodipine 10 mg PO DAILY 08/06/17 08/07/17 History 10mg Tab] Cyclobenzaprine HCl 10 mg PO TID 08/06/17 08/07/17 History [Cyclobenzaprine 10mg Tab] Diclofenac Sodium [Diclofenac 75mg 75 mg PO BID 08/06/17 08/07/17 History Tab] Gabapentin [Gabapentin 100mg Cap] 100 mg PO DAILY 08/06/17 08/07/17 History Glucosa Zamora 2Kcl/Chondroitin Zamora 1 each PO DAILY 08/06/17 08/07/17 History [Glucosamine & Chondroitin Cap] Tramadol HCl [Ultram 50mg 50 mg PO Q6HP PRN 08/06/17 08/07/17 History tablet] Allergies Allergy/AdvReac Type Severity Reaction Status Date / Time No Known Allergies Allergy Verified 08/06/17 08:29 Disposition Disposition: er SNF
[2017-08-10 08:30] VITALS: BP 154/60; PULSE 93; RESP 20; TEMP 36.7
--- NOTE | 2017-08-10 09:08 | SW/DCPLANNER ---
Mr Zuñiga is discharging to [place] today for skilled stay under his [facility] benefit...Patient and family are in agreement of the plan.. Faxed discharge summary and medication list this morning..
--- NOTE | 2017-08-10 10:47 | CARE MANAGER ---
MR FELIX IS DISCHARGING TO [facility] FOR CONTINUED REHAB SERVICES. CM STAFF WILL AID IN THEIR NEEDS.
--- NOTE | 2017-08-10 14:37 | HMH.ORTHPN ---
Subjective Date: 08/10/17 Time: 14:37 Principal diagnosis: S/P Total Hip Arthroplasty, LEFT Interval history: Patient is postop day 3 left total hip arthroplasty he feels well. He is progressing well with physical therapy. He denies complaints. PN: Obj Ex Vital signs: Temp Pulse Resp BP Pulse Ox 98.0 F 93 H 20 154/60 94 L 08/10/17 08:30 08/10/17 08:30 08/10/17 08:30 08/10/17 08:30 08/10/17 04:00 - Routine Extremities Exam Comments: The patient is awake and sitting comfortably in a reclining chair. His dressing is intact and no evident drainage or complications noted. Sensate to LT lower extremities. Circulation intact. Total hip precautions discussed, latisha avoiding internal rotation (demonstrated to pt). STRICT USE OF ABDUCTION PILLOW EMPHASIZED!! RECOMMENDATIONS FOR [facility]-- WBAT with assistance by PT. STRICT use of abduction pillow when in bed! Pt will require anticoagulation for 5 weeks from date of surgery (DOS 07 Aug 2017) Please perform daily dressing changes. OK to shower and wet incision when totally dry. Call if wound is not completely dry by 13 Aug 2017 or if ANY questions whatsoever.. Thanks - Urinary Catheter Management Nava Cath placed during this visit: yes, but has since been removed by the nurse Urethral indwelling: No Insertion date: 08/07/17 Insertion time: 08:00 Removal date: 08/08/17
--- NOTE | 2017-08-10 14:46 | P.PN_ITS ---
Subjective Date: 08/10/17 Time: 14:37 Principal diagnosis: S/P Total Hip Arthroplasty, LEFT Interval history: Patient is postop day 3 left total hip arthroplasty he feels well. He is progressing well with physical therapy. He denies complaints. PN: Obj Ex Vital signs: Temp Pulse Resp BP Pulse Ox 98.0 F 93 H 20 154/60 94 L 08/10/17 08:30 08/10/17 08:30 08/10/17 08:30 08/10/17 08:30 08/10/17 04:00 - Routine Extremities Exam Comments: The patient is awake and sitting comfortably in a reclining chair. His dressing is intact and no evident drainage or complications noted. Sensate to LT lower extremities. Circulation intact. Total hip precautions discussed, latisha avoiding internal rotation (demonstrated to pt). STRICT USE OF ABDUCTION PILLOW EMPHASIZED!! RECOMMENDATIONS FOR [facility]-- WBAT with assistance by PT. STRICT use of abduction pillow when in bed! Pt will require anticoagulation for 5 weeks from date of surgery (DOS 07 Aug 2017 ) Please perform daily dressing changes. OK to shower and wet incision when totally dry. Call if wound is not completely dry by 13 Aug 2017 or if ANY questions whatsoever.. Thanks - Urinary Catheter Management Nava Cath placed during this visit: yes, but has since been removed by the nurse Urethral indwelling: No Insertion date: 08/07/17 Insertion time: 08:00 Removal date: 08/08/17
--- NOTE | 2017-08-10 14:50 | PC.NURSE ---
REPORT CALLED TO OLGA LIDIA AT [facility]
== END 2017-08-10 15:30 | DRG 470 ==
LOC: 2ND 06:25
PROVIDERS: Admitting Provider Orthopaedic Surgery; Family Provider Family Medicine; PCP Family Medicine; Visit Provider Orthopaedic Surgery
PROC: 0SRB04A Replacement of Left Hip Joint with Ceramic on Polyethylene Synthetic Substitute, Uncemented, Open Approach (ICD-10-PCS; CPT 27130; principal; 2017-08-07 07:30)
DX: M16.12 Unilateral primary osteoarthritis, left hip (principal); I10 Essential (primary) hypertension
CPT/HCPCS: 27130; 36415; 72170; 73502; 80048; 81001; 85025; 86850; 97110; 97116; 97162; 97530; C1713; J2405; J2710

== ENCOUNTER → 2017-08-16 11:09 | Outpatient (REF) | payer MEDICARE, OTHER, SELFPAY | LOC: LAB 11:09 | PROVIDERS: Visit Provider Orthopaedic Surgery | DX: Z96.642 Presence of left artificial hip joint (principal) | CPT/HCPCS: 87070; 87205 ==

== ENCOUNTER 2017-08-20 11:01 | Inpatient (IN) | payer MEDICARE, OTHER, SELFPAY ==
[2017-08-20] VITALS (20 sets, daily range): BP systolic 103–155; BP diastolic 54–86; PULSE 67–91; RESP 16–20; TEMP 36.1–43; O2SAT 91–98; BMI 39.9
--- NOTE | 2017-08-20 11:39 | XR_ITS ---
XR hip LT 2-3V w/pelvis Ordering Physician: Samm Smith MD Patient Age: 71 years: Male HISTORY: ITS.REASON: STATUS POST LEFT HIP ARTHROPLASTY TECHNIQUE: AP and crosstable lateral left hip along with AP pelvis COMPARISON :08/07/2017 left hip & AP pelvis FINDINGS Left total hip prosthesis again noted in stable position since previous study 08/07/2017. . AP PELVIS Again we note the 2 screws securing the acetabular component. The superior screw is directed into the medial roof somewhat eroded superior left acetabulum.. The 2 nd more central screw is directed through the medial wall of acetabulum and extends 9 mm medially towards left hemipelvis.. The remainder of the osseous pelvis appears stable. The degenerative changes lower L-spine most evident to the right L4/5 again noted. Right hip appears stable with mild degenerative changes LEFT HIP: AP and crosstable lateral view again show stable appearance to the short medullary stem of the femoral prosthesis in. Good position centrally within the proximal femur. The head of the femoral prosthesis articulates satisfactorily with the prosthetic component. Faint calcifications throughout the femoral arteries noted. Likely reflecting underlying diabetes IMPRESSION: TH A stable position of elements since August 07, 2017... . No fracture nor loosening.
[2017-08-20 11:45] LABS: Basophils # 0.1 K/mm3 (0-0.2); Basophils % 1.2 % (0.1-2.0); Eosinophils # 0.7 K/mm3 (0.0-0.4); Eosinophils % 7.6 % (0.1-12.0); Hematocrit 37.1 % (42.0-52.0); Hemoglobin 11.7 g/dL (14.1-18.0); Lymphocytes # 2.1 K/mm3 (0.7-4.5); Lymphocytes % 22.3 K/mm3 (10-50); Mean Corpuscular HGB Conc 31.5 g/dL (31.8-35.4); Mean Corpuscular Hemoglobin 29.9 pg (27.0-31.2); Mean Corpuscular Volume 94.7 fl (80-94); Mean Platelet Volume 7.4 fl (7.4-10.4); Monocytes # 0.6 K/mm3 (0.1-1.0); Monocytes % 6.8 % (1.7-9.3); Neutrophils # 5.8 K/mm3 (1.8-7.8); Neutrophils % 62.1 % (37.0-80.0); Platelet Count 515 K/mm3 (142-424); Red Blood Count 3.92 M/mm3 (4.60-6.20); Red Cell Distribution Width 13.7 % (11.5-17.5); White Blood Count 9.3 K/mm3 (4.8-10.8)
[2017-08-20 11:53] LABS: INR 0.97 (0.9-1.1); Prothrombin Time 10.5 seconds (9.4-11.8)
[2017-08-20 11:57] LABS: Alanine Aminotransferase 32 U/L (12-78); Albumin Level 3.4 gm/dL (3.4-5.0); Albumin/Globulin Ratio 0.8 (1.1-1.8); Alkaline Phosphatase 132 U/L (46-116); Anion Gap 11.2 mEq/L (5-15); Aspartate Amino Transferase 29 U/L (15-37); Bilirubin,Total 0.6 mg/dL (0.2-1.0); Blood Urea Nitrogen 13 mg/dL (7-18); C-Reactive Protein 0.8 mg/L (0.0-0.9); Calcium 9.3 mg/dL (8.5-10.1); Carbon Dioxide 28 mmol/L (21.0-32.0); Chloride 105 mmol/L (98-107); Creatinine,Serum 1.02 mg/dL (0.70-1.30); Estimated Glomerular Filt Rate 72 ml/min (>60); GFR (African American) 87 ML/MIN (>60); Globulin 4.1 gm/dl (1.3-3.2); Glucose 99 mg/dL (74-106); Potassium 4.2 mmoL/L (3.5-5.1); Sodium 140 mmol/L (136-145); Total Protein,Serum 7.5 gm/dL (6.4-8.2)
[2017-08-20 13:31] LABS: Erythrocyte Sedimentation Rate 83 mm/hr (0-20)
[2017-08-20 16:26] LABS: Microscopic,Cath URINE MICROSCOPIC (MICROSCOPIC)
--- NOTE | 2017-08-20 16:28 | PC.NURSE ---
pt off the floor at this time for surgery
--- NOTE | 2017-08-20 16:29 | PC.NURSE ---
1445-THICK, WHITE SUBSTANCE/DRAINAGE NOTED AROUND TIP OF PENIS. CLEANED AROUND TIP OF PENIS WITH BETADINE PRIOR TO INSERTION OF CATHETER.
--- NOTE | 2017-08-20 16:56 | SUR.OPER ---
Addendum entered by Gemma Desai RN 08/20/17 17:55: 1710-17.5ML'S BETADINE DILUTED IN 500 ML'S NORMAL SALINE USED TO IRRIGATE THE WOUND AT THIS TIME PER MD. Original Note: Addendum entered by Gemma Desai RN 08/20/17 17:52: 1701-1 RAY TECH REMOVED FROM ACETABULUM PER MD 1700- 1 RAY TECH INSERTED INTO ACETABULUM PER MD Original Note: Addendum entered by Gemma Desai RN 08/20/17 17:51: 1658- 1 RAY TECH REMOVED PER MD FROM ACETABULUM Original Note: Addendum entered by Gemma Desai RN 08/20/17 17:35: 1436-LATE ENTRY: PRIOR TO PREPPING, LEFT HIP INCISION NOTED TO HAVE LIGHT BROWN, THIN DRAINAGE FROM WOUND. REDDENED, SCABBED AREAS NOTED TO LEFT HIP AND LEFT LOWER LEG. MD AWARE OF PRIOR TO PROCEDURE. Original Note: Addendum entered by Gemma Desai RN 08/20/17 16:56: 1656-1 RAY TECH INSERTED INTO ACETABULUM PER MD Original Note: 1650-FAMILY UPDATED AT THIS TIME.
[2017-08-20 17:22] LABS: Appearance,Urine/Cath Clear (Clear); Bilirubin,Cath Negative (Negative); Blood, Urine/Cath Negative (Negative); Color,Urine/Cath Yellow (Yellow); Glucose,Urine/Cath (UA) Negative (Negative); Ketones,Urine/Cath Negative (Negative); Leukocyte Esterase,Cath Negative (Negative); Nitrate,Cath Negative (Negative); PH,Urine/Cath 7.5 (5.0-8.5); Protein,Urine/Cath Negative (Negative); Urobilinogen,Cath 0.2 EU/dl (0.2)
--- NOTE | 2017-08-20 18:00 | PC.NURSE ---
pt off the floor at this time for surgery
--- NOTE | 2017-08-20 18:32 | PC.NURSE ---
PATIENT LEFT FLOOR AT AROUND 1430. STILL IN SURGERY AT THIS TIME
--- NOTE | 2017-08-20 19:08 | P.PN_ITS ---
[facility] Anesthesia Checklist - Patient Identification Patient Identification: Arm Band - Structural Data Admitted From: Home Planned Operative Procedure/s: revision joint arthroplasty left hip Consent for Planned Operative Procedure(s) Verified: Yes Verified Documents: Surgical Consent, History and Physical - NPO Status Verified Time NPO: 00:00 - Additional verifications Anesthesia Reactions: No - Airway Assessment C-Spine Mobility Assessed: Yes (MP2) TMJ Mobility Assessed: Yes - Anesthesia Plan Anesthesia Risk discussed: Yes Anesthesia Plan: Verified ASA Class: II Anesthesia Type: General [facility] Anesthesia HX I have reviewed the patient's past medical history: Yes Medical History: Reports:: Hypertension Denies:: Cancer, Diabetes Mellitus Type 1, Diabetes Mellitus Type 2, MRSA, Seizures Other Medical History: Reports: Arthritis Laterality Cases: Left: Total Hip Replacement Other Surgeries: Yes: Colonoscopy (1 YEAR AGO) Amputation: No Fractures: No *Family Hx:: Diabetes, Heart Attack, Stroke, Thyroid Disorder
--- NOTE | 2017-08-20 19:08 | HMH.ANESI ---
[facility] Anesthesia Record Part I Intake, IV Amount: 2,500 Estimated blood loss (mL): 250 Urine output (mL): 800 Blood Pressure: 103/60 SaO2: 95 Pulse Rate: 81 Respiratory Rate: 16 Temperature: 97.2 F Patient is:: Drowsy, Nasal O2, Stable Stable to PACU at:: 18:55
--- NOTE | 2017-08-20 19:08 | HMH.ANESII ---
[facility] Anesthesia Record Part II Discharge Time: 19:25 Destination: 2nd floor PACU nurse assessment reviewed?: Yes Patient Condition:: Good Anesthesia Complications:: None
--- NOTE | 2017-08-20 19:29 | PC.NURSE ---
1854-HEMOVAC DRAINS X2 TO LEFT HIP NOTED
--- NOTE | 2017-08-20 19:38 | XR_ITS ---
XR hip LT 2-3V w/pelvis Ordering Physician: Samm Smith MD Patient Age: 71 years: Male HISTORY: ITS.REASON: POST OP TECHNIQUE: AP and crosstable lateral view of left hip. Portable. It appears the patient is undergone a procedure since earlier study. The central screw that passes through the Acetabular cup, continued to the medial wall of acetabulum into the left hemipelvis is been trimmed at the left hemipelvis. The screw tip has been trimmed back a nearly flush the medial rim of the left hemipelvis bone, with less less than 2 mm screw extending beyond the bone . At the superior screw continues securing secure the acetabular cup prosthesis into the roof of the acetabulum. The medullary stem of femoral component appear to be stable in good position. There are additional drains now seen overlying the left hemipelvis. IMPRESSION--------- . The medially directed screw securing the acetabular cup extending towards the left hemipelvis has been cut back, now nearly flush to the bone at left hemipelvis.. ..
--- NOTE | 2017-08-20 19:44 | HMH.OPNOTE ---
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 Guzman STITCHER OPERATOR:: Florian Damico Anesthesia: GETA Estimated blood loss (mL): 250 Clinical Note:: Patient is a 71-year-old male who underwent an uneventful complex primary left total hip arthroplasty 2 weeks ago (on 08/07/2017) developed a seroma with leakage from the mid part of the incision which started about a week after surgery. I have seen the patient for reevaluation today along with my colleague, Dr. Guzman. The discharge from the incision failed to resolve with conservative management and given the possibility of early postoperative infection, we have recommended incision and drainage of the seroma, debridement and limited revision total hip arthroplasty for his LEFT hip. He has had culture from the wound and Gram stain which were both negative. There is no history of any fevers, chills or rigors. He is not on any antibiotics. He says he is feeling well within himself and has very little pain which is well controlled. He is eating and drinking well. Surgery is clinically indicated and is medically necessary to drain the seroma, obtain appropriate samples for diagnosis and to perform limited revision to eradicate any early postoperative infection. In the office, I reviewed the findings and progress with the patient and his daughter. I discussed the diagnosis, natural history and management options in detail including both nonsurgical and surgical. We have also reviewed the lab results which showed normal white cell count and a slightly elevated ESR and CRP. The Gram stain was negative and the wound culture from last week showed no growth. However, given the slight but definite risk of early postoperative infection, we have recommended the surgical option of incision and drainage, wound debridement/washout and exchange of the femoral head and acetabular liner as deemed necessary at the time of surgery. My colleague, Dr. Guzman who has seen the patient along with me also agrees with this plan. The patient and his daughter both wish to proceed with the surgery. We also talked about the possible exchange of 1 of the acetabular screws (for a smaller screw) which was noted to be long on the postoperative x-rays. We have discussed the details of the procedure, risks and benefits and alternatives in detail. The complications discussed include but are not limited to infection, injury to nerves and blood vessels, DVT and PE, fracture, dislocation, implant failure, loosening, osteolysis, periprosthetic fracture, heterotopic ossification, incomplete relief of pain, incomplete functional recovery, likely need for further surgery in future and we also discussed anesthetic complications including heart attack, stroke or even . We have discussed how any of these events can be devastating. We have discussed the nonsurgical alternatives as well including a course of oral/IV antibiotics. Patient understands and wishes to proceed with the surgery. We have told him that postoperatively he would be on antibiotics. The specific agents and the duration of antibiotic regimen will be determined by the intraoperative findings and culture results. I believe that he is fully informed as to the risks, benefits and alternatives including nonsurgical options. We also discussed about the postoperative course, rehabilitation and physical therapy is required. After lengthy and detailed discussion, he wished to proceed with the proposed surgery and we have scheduled him for this procedure later today at [facility]. Advised him to stay n.p.o. and appropriate preop workup including labs and x-rays were ordered. We are admitting him for inpatient services while waiting for the procedure. After his primary surgery he was on Eliqu
--- NOTE | 2017-08-20 19:47 | P.OP_ITS ---
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 Guzman TEST DESK OPERATOR:: Florian Damico Anesthesia: GETA Estimated blood loss (mL): 250 Clinical Note:: Patient is a 71-year-old male who underwent an uneventful complex primary left total hip arthroplasty 2 weeks ago (on 08/07/2017) developed a seroma with leakage from the mid part of the incision which started about a week after surgery. I have seen the patient for reevaluation today along with my colleague , Dr. Guzman. The discharge from the incision failed to resolve with conservative management and given the possibility of early postoperative infection, we have recommended incision and drainage of the seroma, debridement and limited revision total hip arthroplasty for his LEFT hip. He has had culture from the wound and Gram stain which were both negative. There is no history of any fevers, chills or rigors. He is not on any antibiotics. He says he is feeling well within himself and has very little pain which is well controlled. He is eating and drinking well. Surgery is clinically indicated and is medically necessary to drain the seroma, obtain appropriate samples for diagnosis and to perform limited revision to eradicate any early postoperative infection. In the office, I reviewed the findings and progress with the patient and his daughter. I discussed the diagnosis, natural history and management options in detail including both nonsurgical and surgical. We have also reviewed the lab results which showed normal white cell count and a slightly elevated ESR and CRP. The Gram stain was negative and the wound culture from last week showed no growth. However, given the slight but definite risk of early postoperative infection, we have recommended the surgical option of incision and drainage, wound debridement/washout and exchange of the femoral head and acetabular liner as deemed necessary at the time of surgery. My colleague, Dr. Guzman who has seen the patient along with me also agrees with this plan. The patient and his daughter both wish to proceed with the surgery. We also talked about the possible exchange of 1 of the acetabular screws (for a smaller screw) which was noted to be long on the postoperative x-rays. We have discussed the details of the procedure, risks and benefits and alternatives in detail. The complications discussed include but are not limited to infection, injury to nerves and blood vessels, DVT and PE, fracture, dislocation, implant failure, loosening, osteolysis, periprosthetic fracture, heterotopic ossification, incomplete relief of pain, incomplete functional recovery, likely need for further surgery in future and we also discussed anesthetic complications including heart attack , stroke or even . We have discussed how any of these events can be devastating. We have discussed the nonsurgical alternatives as well including a course of oral/IV antibiotics. Patient understands and wishes to proceed with the surgery. We have told him that postoperatively he would be on antibiotics. The specific agents and the duration of antibiotic regimen will be determined by the intraoperative findings and culture results. I believe that he is fully informed as to the risks, benefits and alternatives including nonsurgical options. We also discussed about the postoperative course, rehabilitation and physical therapy is required. After lengthy and detailed discussion, he wished to proceed with the proposed surgery and we have scheduled him for this procedure later today at [facility]. Ron
--- NOTE | 2017-08-20 20:20 | PC.NURSE ---
AWAITING RADIOLOGY AT THIS TIME TO OBTAIN XRAYS ORDERED PER MD. RADIOLOGY NOTIFIED OF ORDERS AT 190.
--- NOTE | 2017-08-20 20:29 | PC.NURSE ---
194-PT REPORTS PAIN/DISCOMFORT TO RIGHT SIDE OF BODY AND LEFT HIP. RATES 5/10. MEDICATED PER MAR W/MORPHINE 2MG IV. VSS. 1944-RADIOLOGY AT BEDSIDE. PT RATES PAIN TO RIGHT SIDE AND LEFT HIP 4/10. MEDICATED PER MAR W/MORPHINE 2MG IV. VSS.
--- NOTE | 2017-08-20 20:35 | PC.NURSE ---
1951-PT RATES PAIN TO RT SIDE AND LT HIP 11/13. MEDICATED PER OCT W/MORPHINE 2MG IV. VSS DETAILED REPORT CALLED TO LUCIO RICO. 1954-PT TRANSPORTED TO 2ND FLOOR RM 203 [facility]IA HOSPITAL BED PER LUCIO CROWDER & VICTOR HUGO, SURGICAL GARMENT ASSEMBLY SUPERVISOR AND LEFT IN CARE OF LUCIO RICO WITH BED LOCKED IN LOWEST POSITION. FAMILY AT BEDSIDE. VSS. PT STABLE.
--- NOTE | 2017-08-20 22:49 | PC.NURSE ---
PT AHS A ABDUCTION PILLOW IN PLACE
[2017-08-21] VITALS (9 sets, daily range): BP systolic 109–136; BP diastolic 45–70; PULSE 67–83; RESP 16–20; TEMP 36.3–36.9; O2SAT 94–98
--- NOTE | 2017-08-21 02:21 | PC.NURSE ---
LAYING IN BED RESTING AT THIS TIME. HAS HAD PAIN MEDICATION 2 TIMES THIS SHIFT. STATES LEFT HIP VERY SORE. IV AND DRAINS IN PLACE AND PATENT. HAS 2= PITTING IN LEFT LOWER EXT. THIS IS NOT NEW. ABD PILLOW IN PLACE. STRONG PULSES. CAP REFIL < 3. LUNGS ARE CLEAR, RESP EVEN AND NONLABORED. DENIES SOA. AFEBRILE. DENIES NEEDS AT THIS TIME. BED LOCKED IN LOW POSITION, SIDE RALES UP X 2, WILL CONTINUE TO MONITOR. CALL LIGHT WITHIN REACH.
--- NOTE | 2017-08-21 04:26 | PC.NURSE ---
pt hAS ABDUCTION PILLOW IN PLACE
--- NOTE | 2017-08-21 04:27 | PC.NURSE ---
ABDUCTION PILLOW IN PLACE
--- NOTE | 2017-08-21 04:29 | PC.NURSE ---
PT HAS ABDCUTION PILLOW IN PLACE
--- NOTE | 2017-08-21 04:30 | PC.NURSE ---
ABDUCTION PILLOW IN PLACE
--- NOTE | 2017-08-21 06:01 | PC.NURSE ---
pt has an abduction pillow& ice pack in place to left hip
[2017-08-21 06:56] LABS: Anion Gap 11.5 mEq/L (5-15); Blood Urea Nitrogen 13 mg/dL (7-18); Carbon Dioxide 26 mmol/L (21.0-32.0); Chloride 106 mmol/L (98-107); Creatinine Clearance Estimated 120 mL/min (0-300); Creatinine,Serum 1.02 mg/dL (0.70-1.30); Estimated Glomerular Filt Rate 72 ml/min (>60); GFR (African American) 87 ML/MIN (>60); Glucose 110 mg/dL (74-106); Potassium 4.5 mmoL/L (3.5-5.1); Sodium 139 mmol/L (136-145)
--- NOTE | 2017-08-21 07:00 | HMH.ACPN ---
Internal Medicine - PN: Subj *Date: 08/21/17 *Time: 07:00 Interval history: Patient underwent drainage of seroma of the left hip as well as limited revision of previous hip arthroplasty yesterday. This morning he states he is very stiff from lying in bed. His pain is well controlled. He has been placed on vancomycin. Exam Vital signs and Labs for Last 24 Hours: Temp Pulse Resp BP Pulse Ox 97.8 F 76 20 118/57 96 08/21/17 04:00 08/21/17 04:00 08/21/17 04:00 08/21/17 04:00 08/21/17 04:00 Laboratory Results - last 24 hr 08/20/17 11:13: PT 10.5, INR 0.97 08/20/17 11:13: WBC 9.3, RBC 3.92 L, Hgb 11.7 L, Hct 37.1 L, MCV 94.7 H, MCH 29.9, MCHC 31.5 L, RDW 13.7, Plt Count 515 H, MPV 7.4, Neut % (Auto) 62.1, Lymph % (Auto) 22.3, [place] % (Auto) 6.8, Eos % (Auto) 7.6, Baso % (Auto) 1.2, Neut # (Auto) 5.8, Lymph # (Auto) 2.1, [place] # (Auto) 0.6, Eos # (Auto) 0.7 H, Baso # (Auto) 0.1, ESR 83 H 08/20/17 11:13: Sodium 140, Potassium 4.2, Chloride 105, Carbon Dioxide 28, Anion Gap 11.2, BUN 13, Creatinine 1.02, Estimated GFR 72, Est GFR ( Amer) 87, Glucose 99, Calcium 9.3, Total Bilirubin 0.6, AST 29, ALT 32, Alkaline Phosphatase 132 H, C-Reactive Protein 0.8, Total Protein 7.5, Albumin 3.4, Globulin 4.1 H, Albumin/Globulin Ratio 0.8 L 08/20/17 11:13: Blood Type O Positive, Antibody Screen Negative 08/20/17 14:45: Urine Color Yellow, Urine Appearance Clear, Urine pH 7.5, Ur Specific [place] 1.010, Urine Protein Negative, Urine Glucose (UA) Negative, Urine Ketones Negative, Urine Blood Negative, Urine Nitrate Negative, Urine Bilirubin Negative, Urine Urobilinogen 0.2, Ur Leukocyte Esterase Negative I & O for Last 24 hours: Intake & Output 08/18/17 08/19/17 08/20/17 08/21/17 11:59 11:59 11:59 11:59 Intake Total 3280 / 3280 Output Total 0 / 0 Balance 1200 / 1200 Weight 278 lb 3 oz Microbiology Reports for the Last 24 Hours: Microbiology 08/20/17 15:48 Hip,Left Gram Stain - Final Narrative: He is awake and alert. Lungs are clear to auscultation. Heart has a regular rate and rhythm. Nava catheter is in place. Dressing over left hip is intact Assessment and Plan (1) Hypertension Current visit: No Status: Acute Qualifiers: Category: Medical Code(s): I10 - Essential (primary) hypertension (2) Status post left hip replacement Current visit: No Status: Acute Category: Surgical Code(s): Z96.642 - Presence of left artificial hip joint - Assessment and plan all Dx Assessment and Plan for all problems:: I will continue to follow the patient from the periphery while he is hospitalized, monitoring his vital signs.
[2017-08-21 07:11] LABS: Basophils # 0.1 K/mm3 (0-0.2); Basophils % 0.4 % (0.1-2.0); Eosinophils % 0.2 % (0.1-12.0); Lymphocytes # 1.1 K/mm3 (0.7-4.5); Lymphocytes % 8.4 K/mm3 (10-50); Mean Corpuscular HGB Conc 31.7 g/dL (31.8-35.4); Mean Corpuscular Volume 94.6 fl (80-94); Mean Platelet Volume 7.5 fl (7.4-10.4); Monocytes # 0.6 K/mm3 (0.1-1.0); Monocytes % 4.8 % (1.7-9.3); Neutrophils # 11.1 K/mm3 (1.8-7.8); Neutrophils % 86.2 % (37.0-80.0); Platelet Count 465 K/mm3 (142-424); Red Blood Count 3.28 M/mm3 (4.60-6.20); Red Cell Distribution Width 13.6 % (11.5-17.5); White Blood Count 12.8 K/mm3 (4.8-10.8)
[2017-08-21 07:15] LABS: MANUAL DIFFERENTIAL MANUAL DIFFERENTIAL (MANUAL DIFF)
[2017-08-21 07:16] LABS: Hemoglobin 9.9 g/dL (14.1-18.0)
--- NOTE | 2017-08-21 07:30 | PC.NURSE ---
REPORT GIVEN TO Ron ALVAREZ
--- NOTE | 2017-08-21 08:26 | P.CONPHA_ITS ---
[facility] Pharmacy VTE Monitoring - Patient Demographics Admission date: 08/20/17 Report Date: 08/21/17 Time: 08:26 Allergies/Adverse Reactions: No Known Allergies Allergy (Verified 08/20/17 10:29) Height: 1.78 m Weight: 126.184 kg - VTE Risk Labs: VTE Related Lab Results Hgb 9.9 g/dL (14.1-18.0) L D 08/21/17 06:20 Hct 31.0 % (42.0-52.0) L 08/21/17 06:20 Plt Count 465 K/mm3 (142-424) H 08/21/17 06:20 PT 10.5 seconds (9.4-11.8) 08/20/17 11:13 INR 0.97 (0.9-1.1) 08/20/17 11:13 BUN 13 mg/dL (7-18) 08/21/17 06:20 Creatinine 1.02 mg/dL (0.70-1.30) 08/21/17 06:20 Estimated Creat Clear 120 mL/min (0-300) 08/21/17 06:20 Was VTE Risk Assessment Performed: Yes VTE Score: 3 VTE Risk Level: Very Low Risk - Prophylaxis VTE Prophylaxis Ordered?: Yes Types of VTE Prophylaxis: IPCS Thigh High Location of Applied Device: Bilateral Lower Extremeties - VTE Diagnosis Confirmed Treatment or plan recommended: Continue Current Treatment
[2017-08-21 10:10] LABS: Lymphocytes % 3 % (10-50); Monocytes % 2 % (2-9); Neutrophils % 92 % (42-76); Total Cells Counted 100
[2017-08-21 10:11] LABS: Platelet Estimate Slight Increase
--- NOTE | 2017-08-21 11:25 | HMH.PTEV ---
Physical Therapy Evaluation Rehab PT IP Evaluation Start: 08/20/17 19:13 Freq: ONCE Status: Complete Protocol: Document 08/21/17 11:21 HANK (Rec: 08/21/17 11:25 HANK [id number]) Subjective/History History History Pt is a 71 y/o makle re- admitted to [facility] for seroma draining and revision of L ADRIAN Subjective Subjective no compaints from pt - pt reports he has not moved since being put in room Rehab PT IP Eval Objective Appearance Patient Behavior Appropriate Patient Orientation Person Place Time Name Birthday Year Patient Baseline Difficulty following instructions none Speech Pattern Clear Ambulation Patient Able to Ambulate Yes Ambulation Observation IP General Gait Pattern Observation Antalgic Gait Ambulation Distance (feet) 5 Ambulation Assistive Device Standard Walker Balance Ability to Arise Able, uses arms to help Sitting Balance Steady, safe Standing Balance Steady, wide stance Dynamic Sitting Balance Ability Good Dynamic Standing Balance Ability Good Transfers Bed Transfer Ability Supervision/Stand by Chair Transfer Ability Supervision/Stand by Sit to Stand Bed Transfer Ability Supervision/Stand by Sit to Stand Chair Transfer Ability Supervision/Stand by Pain Left Hip Pain Intensity 4 ROM LLE PT ROM Status ABN Abnormal ROM Comment post hip precautions MMT LLE PT MMT ABN Abnormal MMT Grade 3-/5 Rehab PT IP prob,goals,plan Problems Date of Evaluation: 08/21/17 PT IP Problems Transfers Gait Rehab Potential Rehab Potential Fair Equipment Needs Assistive Devices Standard Walker Rolling / Wheeled Walker Plan PT Intervention Plan Transfers Gait PT Plan Frequency BID Duration LOS Discharge Goals Bed Transfer Ability Supervision/Stand by Sit to Stand Chair Transfer Ability Supervision/Stand by Ambulation Assistive Device Standard Walker Ambulation Distance (feet) 15 Discharge Plan PT Discharge Plan SNF for rehab to allow return to PLOF G -code Required Yes Eval Complexity Eval Charge
--- NOTE | 2017-08-21 12:51 | SW/DCPLANNER ---
Addendum entered by Shavonne Roa 08/21/17 14:58: Patient was offered to pay bedhold at [facility] but refused. I have spoke to patient stating that if [facility] does not have bed where would he want to go. Patient stated that he prefers [facility] in [place]...if a bed is not available there he wants to go to [facility] facility in [place]...I explained to patient that it is important to be thinking of a different place incase if both of these options fail. Patient stated that he would need time to think of this...CM will follow in the AM. Original Note: Patient was discharged from [facility] and admitted to [facility]. I have spoke with Nadja regarding this patient. Nadja has stated that they can not make a decision about accepting this patient back or not until she knows what the patient will discharge on. All updated information has been faxed to [facility] at this time. When culture results are back and decisions are made by I will follow up with Nadja.
--- NOTE | 2017-08-21 14:47 | HMH.ORTHPN ---
Subjective Date: 08/21/17 Time: 14:00 Principal diagnosis: Status post drainage of seroma and limited revision ADRIAN, left Interval history: Subjective data: Patient is status post drainage of seroma and limited revision left total hip arthroplasty post op day #1. Patient is sitting out in the chair and appears comfortable. Says is doing well and reports no problems. Patient has minimal pain and says it's well-controlled with medication. No history of any nausea or vomiting. No history of any cough, chest pain, shortness of breath or palpitations. Patient says he is eating and drinking well. No history of any distal tingling or numbness. Objective: Reviewed the vital signs, input and output, labs, medication, medical progress note and discussed with the nursing staff. Exam General appearance: alert, active, awake, no acute distress Eyes: normal exam ENT: normal exam Neck: normal inspection Cardiovascular: regular rate & rhythm, normal peripheral pulses, Respiratory: clear to auscultation, normal breath sounds ABD: normal exam; soft and non tender Genitourinary: [Catheter in situ. Neuro: alert, garment supervisor II-XII nml as tested, no deficit, oriented x 3 Psych: normal mood and affect On examination of the lower extremities the limb lengths are equal. Thigh and calf are soft and nontender. On examination of the LEFT hip, the dressings are clean, dry and intact. 2 drains are in situ and overnight there was about 80 cc of serous fluid which was emptied. Currently there is 100 cc in both drains put together. He has bilateral edema of his lower legs and feet. Distal pulses are 2+. Distal sensation is intact to light touch throughout. No motor deficits noted distally. Post op patient plan I reviewed the operative findings and procedure performed with the patient. Patient is doing very well and reports no problems. Patient is mobilizing well weightbearing as tolerated on the LEFT side with the walker and to continue the same. Continue DVT prophylaxis. Continue abduction pillow when in bed and continue standard precautions for the posterior approach hip replacement. Discontinue IV fluids, OUTSIDE PARTS SALESMAN. Discontinue the urinary catheter. The Gram stain on the intraoperative samples was negative for any organisms and only had 1 or 2 white cells for high-power field. Cultures are negative so far. Case management consult regarding discharge planning. Medical management as per Dr. Donaldson. Abnormal lab results 08/21/17 08/21/17 Range/Units 06:20 06:20 WBC 12.8 H D (4.8-10.8) K/mm3 RBC 3.28 L (4.60-6.20) M/mm3 Hgb 9.9 L D (14.1-18.0) g/dL Hct 31.0 L (42.0-52.0) % MCV 94.6 H (80-94) fl MCHC 31.7 L (31.8-35.4) g/dL Plt Count 465 H (142-424) K/mm3 Neut % (Auto) 86.2 H (37.0-80.0) % Lymph % (Auto) 8.4 L (10-50) K/mm3 Neut # (Auto) 11.1 H (1.8-7.8) K/mm3 Neutrophils % (Manual) 92 H (42-76) % Lymphocytes % (Manual) 3 L (10-50) % Glucose 110 H (74-106) mg/dL PN: Obj Ex Vital signs: Temp Pulse Resp BP Pulse Ox 98.1 F 70 18 109/45 98 08/21/17 11:41 08/21/17 11:41 08/21/17 11:41 08/21/17 11:41 08/21/17 11:41 - Urinary Catheter Management Coude Cath placed during this visit: yes Urethral indwelling: Yes Reason for continuing: Decision to DC catheter (Discontinue catheter today) Insertion date: 08/20/17 Insertion time: 14:45
--- NOTE | 2017-08-21 15:05 | P.CONPHA_ITS ---
- Pharmacy Consult Date: 08/21/17 Time: 14:56 Referring provider: DR. DORMAN Reason for Consult:: VANCOMYCIN DOSING Allergies and ADEs:: Allergies Allergy/AdvReac Type Severity Reaction Status Date / Time No Known Allergies Allergy Verified 08/20/17 10:29 Home Medications:: Home Medications Medication Instructions Recorded Confirmed Type Amlodipine Besylate [Amlodipine 10 mg PO DAILY 08/06/17 08/20/17 History 10mg Tab] Cyclobenzaprine HCl 10 mg PO TID 08/06/17 08/20/17 History [Cyclobenzaprine 10mg Tab] Glucosa Zamora 2Kcl/Chondroitin Zamora 1 each PO DAILY 08/06/17 08/20/17 History [Glucosamine & Chondroitin Cap] acetaminophen 325 mg tablet 650 mg PO Q4H PRN 08/16/17 08/20/17 History docusate sodium 100 mg capsule 100 mg PO QDAY 08/16/17 08/20/17 History polyethylene glycol 3350 17 17 g PO NEEDED PRN 08/16/17 08/21/17 History gram/dose oral powder Gabapentin [Neurontin 600mg 600 mg PO TID 08/21/17 08/21/17 History tablet] Tramadol HCl [Ultram 50mg 50 mg PO Q6HP PRN 08/21/17 08/21/17 History tablet] Height: 1.78 m Weight: 126.184 kg Laboratory Results:: Laboratory Results - last 24 hr 08/20/17 14:45: Urine Color Yellow, Urine Appearance Clear, Urine pH 7.5, Ur Specific Evangeline 1.010, Urine Protein Negative, Urine Glucose (UA) Negative, Urine Ketones Negative, Urine Blood Negative, Urine Nitrate Negative, Urine Bilirubin Negative, Urine Urobilinogen 0.2, Ur Leukocyte Esterase Negative 08/21/17 06:20: WBC 12.8 H D, RBC 3.28 L, Hgb 9.9 L D, Hct 31.0 L, MCV 94.6 H, MCH 30.0, MCHC 31.7 L, RDW 13.6, Plt Count 465 H, MPV 7.5, Neut % (Auto) 86.2 H , Lymph % (Auto) 8.4 L, [place] % (Auto) 4.8, Eos % (Auto) 0.2, Baso % (Auto) 0.4, Neut # (Auto) 11.1 H, Lymph # (Auto) 1.1, [place] # (Auto) 0.6, Eos # (Auto) 0.0, Baso # (Auto) 0.1, Total Counted 100, Neutrophils % (Manual) 92 H, Band Neutrophils % 3.0, Lymphocytes % (Manual) 3 L, Monocytes % (Manual) 2, Platelet Estimate Slight increase, RBC Morphology Not Reportable 08/21/17 06:20: Sodium 139, Potassium 4.5, Chloride 106, Carbon Dioxide 26, Anion Gap 11.5, BUN 13, Creatinine 1.02, Estimated Creat Clear 120, Estimated GFR 72, Est GFR ( Amer) 87, Glucose 110 H Medical History: Reports:: Hypertension Denies:: Cancer, Diabetes Mellitus Type 1, Diabetes Mellitus Type 2, MRSA Assessment and Plan - Assessment and plan all Dx Assessment and Plan for all problems:: BASED ON PATIENT'S FACTORS, RECOMMEND CONTINUING WITH VANCOMYCIN 2000 MG Q12H AT THIS TIME. PHARMACY WILL FOLLOW DAILY AND ADJUST APPROPRIATE. IVONNE EATON, CHANDUD
--- NOTE | 2017-08-21 18:14 | PC.NURSE ---
Lungs clear, bowel sounds are hypo. Pt has been up to the chair the majority of the shift. +2 edema noted to BLE. Dressing to L hip is cdi. ABD pillow in place. Cap refill is < 3sec, +1 pulses distally but hard to palpate due to edema. Pt has not reported any pain requiring medication this shift. Nava catheter dc'd w/ 1100 clear yellow urine out. Hemovac 1 noted to have total of 110ml's bloody drainage out this shift, hemovac 2 had 60 ml's out total. Ice pack has been in place. No complaints verbalized. Will continue to monitor.
--- NOTE | 2017-08-21 18:52 | PC.NURSE ---
Report to be given to Jose Wiley RN
--- NOTE | 2017-08-21 21:48 | PC.NURSE ---
PT DID NOT WAQNT TO BE GO BACK TO BED WHEN OFFERED AT THIS TIME. FERNANDO IS AWARE
[2017-08-22] VITALS (10 sets, daily range): BP systolic 121–130; BP diastolic 55–75; PULSE 74–83; RESP 18–20; TEMP 36.8–37.3; O2SAT 91–95
--- NOTE | 2017-08-22 00:40 | PC.NURSE ---
PT DID NOT WANT TO GO BACK TO BED AT THIS TIME. PT STATED HE IS COMFORTABLE IN CHAIR. NURSE NOTIFIIED. PT HAS SCUDS OFF AT THIS TIME
--- NOTE | 2017-08-22 01:49 | PC.NURSE ---
PT DECLINED TO BE ASSISTED BACK TO BED AT THIS TIME. PT STATED HE BREATHES BETTER & SLEEPS BETTER IN BED. PT STATED THAT THE BED ALSO HURST HIS BACK. NURSE WAS NOTIFIED.
--- NOTE | 2017-08-22 01:52 | PC.NURSE ---
LATES ENTRY . PT DID NOT WANT TO GO BACK TO BED AST THIS TIME. NURSE AWARE & NOTIFED
--- NOTE | 2017-08-22 02:39 | PC.NURSE ---
(Andrea) notified @ 5725 r/t pt requesting for pain medication. stated he would look into her chart ( is in ER this shift)
--- NOTE | 2017-08-22 03:39 | PC.NURSE ---
Addendum entered by Clau Wiley RN 08/22/17 03:49: BS HYPOACTIVE IN ALL 4 QAUDS. PT STATES HE IS PASSING FLATUS BUT HAS NO HAD A BM YET. Original Note: PT HAS REMAINED IN CHAIR THIS SHIFT AND REFUSES TO GET BACK TO BED, STATES, AT HOME I STAY IN MY CHAIR AND ITS EASIER FOR ME TO BREATHE AND I'M MORE COMFORTABLE. ABDUCTOR PILLOW IN PLACE. SCUDS IN PLACE TO BLE. PT C/O PAIN IN LT HIP AT BEGINNING OF SHIFT, MEDICATED WITH PRN PAIN MEDICATION, DENIES PAIN SINCE. DSG TO LT HIP CDI, DRAINS #1 AND #[address] AND DRAINING SEROUS DRAINAGE. PALPABLE PEDAL AND TIBIAL PULSE. VSS. NO ACUTE DISTRESS NOTED. WILL CONTINUE TO MONITOR.
--- NOTE | 2017-08-22 04:14 | PC.NURSE ---
PT IS RESTING WELL IN CHAIR & WANTEED TO STAY IN CHAIR AT THIS TMIE. NURSE AWARE & NOTIFIED
--- NOTE | 2017-08-22 05:44 | PC.NURSE ---
DRAIN #1 5 ML OF SEROUS DRAINAGE EMPTIED. DRAIN #2 65 ML OF SEROUS DRAINAGE EMPTIED.
--- NOTE | 2017-08-22 06:26 | PC.NURSE ---
PT REFUSED A BATH. PT STATED HE WANTS TO TAKE HIS BATH AFTER BREAKFAST, NURSE NOTIFIED
--- NOTE | 2017-08-22 06:29 | PC.NURSE ---
PT IS SLEEPING IN CHAIR WITH ABDUCTION PILLOW IN PLACE
[2017-08-22 06:40] LABS: Basophils # 0.1 K/mm3 (0-0.2); Basophils % 0.8 % (0.1-2.0); Eosinophils # 0.7 K/mm3 (0.0-0.4); Eosinophils % 6.5 % (0.1-12.0); Hematocrit 31.2 % (42.0-52.0); Hemoglobin 9.7 g/dL (14.1-18.0); Lymphocytes % 19.4 K/mm3 (10-50); Mean Corpuscular HGB Conc 31.1 g/dL (31.8-35.4); Mean Corpuscular Hemoglobin 29.7 pg (27.0-31.2); Mean Corpuscular Volume 95.5 fl (80-94); Mean Platelet Volume 7.8 fl (7.4-10.4); Monocytes # 0.8 K/mm3 (0.1-1.0); Monocytes % 7.9 % (1.7-9.3); Neutrophils # 6.8 K/mm3 (1.8-7.8); Neutrophils % 65.3 % (37.0-80.0); Platelet Count 412 K/mm3 (142-424); Red Blood Count 3.27 M/mm3 (4.60-6.20); Red Cell Distribution Width 13.8 % (11.5-17.5); White Blood Count 10.4 K/mm3 (4.8-10.8)
[2017-08-22 06:46] LABS: Anion Gap 8.2 mEq/L (5-15); Blood Urea Nitrogen 18 mg/dL (7-18); Carbon Dioxide 28 mmol/L (21.0-32.0); Chloride 107 mmol/L (98-107); Creatinine Clearance Estimated 119 mL/min (0-300); Creatinine,Serum 1.03 mg/dL (0.70-1.30); Estimated Glomerular Filt Rate 71 ml/min (>60); GFR (African American) 86 ML/MIN (>60); Glucose 94 mg/dL (74-106); Potassium 4.2 mmoL/L (3.5-5.1); Sodium 139 mmol/L (136-145)
--- NOTE | 2017-08-22 07:24 | PC.NURSE ---
REPORT GIVEN TO Jose ALVAREZ
--- NOTE | 2017-08-22 07:28 | PC.NURSE ---
REPORT GIVEN Ron WESTFALL
--- NOTE | 2017-08-22 10:43 | CARE MANAGER ---
MR FELIX REMAINS IN ACUTE CARE TILL HIS CULTURES ARE FINALIZED. RIGHT NOW HE IS A PRELIMINARY NO GROWTH.
[2017-08-22 10:47] LABS: Vancomycin,Trough 31.2 mcg/ml (10.0-20.0)
--- NOTE | 2017-08-22 11:12 | HMH.PHACONS ---
- Pharmacy Consult Date: 08/22/17 Time: 11:12 Referring provider: DR. DORMAN Reason for Consult:: VANCOMYCIN TROUGH LEVEL Allergies and ADEs:: Allergies Allergy/AdvReac Type Severity Reaction Status Date / Time No Known Allergies Allergy Verified 08/20/17 10:29 Home Medications:: Home Medications Medication Instructions Recorded Confirmed Type Amlodipine Besylate [Amlodipine 10 mg PO DAILY 08/06/17 08/20/17 History 10mg Tab] Cyclobenzaprine HCl 10 mg PO TID 08/06/17 08/20/17 History [Cyclobenzaprine 10mg Tab] Glucosa Zamora 2Kcl/Chondroitin Zamora 1 each PO DAILY 08/06/17 08/20/17 History [Glucosamine & Chondroitin Cap] acetaminophen 325 mg tablet 650 mg PO Q4H PRN 08/16/17 08/20/17 History docusate sodium 100 mg capsule 100 mg PO QDAY 08/16/17 08/20/17 History polyethylene glycol 3350 17 17 g PO NEEDED PRN 08/16/17 08/21/17 History gram/dose oral powder Gabapentin [Neurontin 600mg 600 mg PO TID 08/21/17 08/21/17 History tablet] Tramadol HCl [Ultram 50mg 50 mg PO Q6HP PRN 08/21/17 08/21/17 History tablet] Height: 1.78 m Weight: 126.184 kg Laboratory Results:: Laboratory Results - last 24 hr 08/22/17 06:10: WBC 10.4, RBC 3.27 L, Hgb 9.7 L, Hct 31.2 L, MCV 95.5 H, MCH 29.7, MCHC 31.1 L, RDW 13.8, Plt Count 412, MPV 7.8, Neut % (Auto) 65.3, Lymph % (Auto) 19.4, [place] % (Auto) 7.9, Eos % (Auto) 6.5, Baso % (Auto) 0.8, Neut # (Auto) 6.8, Lymph # (Auto) 2.0, [place] # (Auto) 0.8, Eos # (Auto) 0.7 H, Baso # (Auto) 0.1 08/22/17 06:10: Sodium 139, Potassium 4.2, Chloride 107, Carbon Dioxide 28, Anion Gap 8.2, BUN 18 D, Creatinine 1.03, Estimated Creat Clear 119, Estimated GFR 71, Est GFR ( Amer) 86, Glucose 94 08/22/17 10:26: Vancomycin Trough 31.2 H Medical History: Reports:: Hypertension Denies:: Cancer, Diabetes Mellitus Type 1, Diabetes Mellitus Type 2, MRSA Assessment and Plan (1) History of total left hip arthroplasty Current visit: No Status: Acute Category: Surgical Code(s): Z96.642 - Presence of left artificial hip joint (2) Status post left hip replacement Current visit: No Status: Acute Category: Surgical Code(s): Z96.642 - Presence of left artificial hip joint - Assessment and plan all Dx Assessment and Plan for all problems:: BASED ON VANCOMYCIN TROUGH LEVEL OF 31.2, RECOMMEND HOLDING BOTH DOSES OF VANCOMYCIN TODAY. PHARMACY WILL OBTAIN ANOTHER VANCOMYCIN TROUGH LEVEL TOMORROW MORNING. IF ~15 MCG/ML, RECOMMEND VANCOMYCIN 2 GM IV Q18H. PHARMACY WILL CONTINUE TO MONITOR DAILY.
--- NOTE | 2017-08-22 11:16 | P.CONPHA_ITS ---
- Pharmacy Consult Date: 08/22/17 Time: 11:12 Referring provider: DR. DORMAN Reason for Consult:: VANCOMYCIN TROUGH LEVEL Allergies and ADEs:: Allergies Allergy/AdvReac Type Severity Reaction Status Date / Time No Known Allergies Allergy Verified 08/20/17 10:29 Home Medications:: Home Medications Medication Instructions Recorded Confirmed Type Amlodipine Besylate [Amlodipine 10 mg PO DAILY 08/06/17 08/20/17 History 10mg Tab] Cyclobenzaprine HCl 10 mg PO TID 08/06/17 08/20/17 History [Cyclobenzaprine 10mg Tab] Glucosa Zamora 2Kcl/Chondroitin Zamora 1 each PO DAILY 08/06/17 08/20/17 History [Glucosamine & Chondroitin Cap] acetaminophen 325 mg tablet 650 mg PO Q4H PRN 08/16/17 08/20/17 History docusate sodium 100 mg capsule 100 mg PO QDAY 08/16/17 08/20/17 History polyethylene glycol 3350 17 17 g PO NEEDED PRN 08/16/17 08/21/17 History gram/dose oral powder Gabapentin [Neurontin 600mg 600 mg PO TID 08/21/17 08/21/17 History tablet] Tramadol HCl [Ultram 50mg 50 mg PO Q6HP PRN 08/21/17 08/21/17 History tablet] Height: 1.78 m Weight: 126.184 kg Laboratory Results:: Laboratory Results - last 24 hr 08/22/17 06:10: WBC 10.4, RBC 3.27 L, Hgb 9.7 L, Hct 31.2 L, MCV 95.5 H, MCH 29.7, MCHC 31.1 L, RDW 13.8, Plt Count 412, MPV 7.8, Neut % (Auto) 65.3, Lymph % (Auto) 19.4, [place] % (Auto) 7.9, Eos % (Auto) 6.5, Baso % (Auto) 0.8, Neut # ( Auto) 6.8, Lymph # (Auto) 2.0, [place] # (Auto) 0.8, Eos # (Auto) 0.7 H, Baso # ( Auto) 0.1 08/22/17 06:10: Sodium 139, Potassium 4.2, Chloride 107, Carbon Dioxide 28, Anion Gap 8.2, BUN 18 D, Creatinine 1.03, Estimated Creat Clear 119, Estimated GFR 71, Est GFR ( Amer) 86, Glucose 94 08/22/17 10:26: Vancomycin Trough 31.2 H Medical History: Reports:: Hypertension Denies:: Cancer, Diabetes Mellitus Type 1, Diabetes Mellitus Type 2, MRSA Assessment and Plan (1) History of total left hip arthroplasty Current visit: No Status: Acute Category: Surgical Code(s): Z96.642 - Presence of left artificial hip joint (2) Status post left hip replacement Current visit: No Status: Acute Category: Surgical Code(s): Z96.642 - Presence of left artificial hip joint - Assessment and plan all Dx Assessment and Plan for all problems:: BASED ON VANCOMYCIN TROUGH LEVEL OF 31.2, RECOMMEND HOLDING BOTH DOSES OF VANCOMYCIN TODAY. PHARMACY WILL OBTAIN ANOTHER VANCOMYCIN TROUGH LEVEL TOMORROW MORNING. IF ~15 MCG/ML, RECOMMEND VANCOMYCIN 2 GM IV Q18H. PHARMACY WILL CONTINUE TO MONITOR DAILY.
--- NOTE | 2017-08-22 16:21 | PC.NURSE ---
PT WANTED TO TAKE SCUDS OFF FOR A LITTLE WHILE.
--- NOTE | 2017-08-22 18:08 | PC.NURSE ---
Lungs clear, bowel sounds hypo. Pt states he has not had a bowel movement yet but he is passing flatus. He has been up to the chair the majority of the shift. Dr Smith changed dressing to hip at approx 1200. Incision is well approximated with no s/s of infection. Xeroform, 4x4's abd pads and tegaderm in place. It is c,d,i. Pt tolerated dressing change well. He ambulated with physical therapy into the hallway and back to the chair with no distress noted. Hemovacs are draining sanguineous fluid w/ 70 ml's out of drain 1 and 50 ml's out of drain 2. Treated x2 w/prn pain meds for hip pain. Will continue to monitor.
--- NOTE | 2017-08-22 19:06 | PC.NURSE ---
Report to be given to Kirsten Pastor Rn
--- NOTE | 2017-08-22 23:41 | P.PN_ITS ---
Subjective Date: 08/22/17 Time: 12:30 Principal diagnosis: Status post drainage of seroma and limited revision ADRIAN, left Interval history: Patient is status post drainage of seroma and limited revision left total hip arthroplasty post op day #2. Patient is sitting out in the chair and appears comfortable. Says he is doing well and reports no problems. Patient has minimal pain and says it's well-controlled with medication. No history of any nausea or vomiting. No history of any cough, chest pain, shortness of breath or palpitations. Patient says he is eating and drinking well. No history of any distal tingling or numbness. PN: Obj Ex Vital signs: Temp Pulse Resp BP Pulse Ox 98.8 F 75 18 124/65 93 L 08/22/17 20:01 08/22/17 20:01 08/22/17 20:01 08/22/17 20:08/22/17 21:17 - Routine Extremities Exam Comments: Reviewed the vital signs, input and output, labs, medication, medical progress note and discussed with the nursing staff. 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 Thigh and calf are soft and nontender. On examination of the LEFT hip, the dressings are clean, dry and intact. The dressings were changed and the incision appears healthy. There is minimal serous discharge from the wound. 2 drains are in situ and draining well. We have decided leave the drains in place for another day or 2. Would also apply a VAC dressing over the incision before drain removal. He has bilateral edema of his lower legs and feet. Distal pulses are 2 +. Distal sensation is intact to light touch throughout. No motor deficits noted distally. - Urinary Catheter Management Coude Cath placed during this visit: yes Urethral indwelling: Yes Reason for continuing: Decision to DC catheter Insertion date: 08/20/17 Insertion time: 14:45 Progress Note: A&P (1) Status post left hip replacement Problem details: I&D Seroma and limited revision Left ADRIAN Status: Acute Assessment and plan: I reviewed the findings and progress with the patient. We have changed the dressings today and the surgical incision looks clean, dry and healthy. The surgical drain is in place. We will leave the drain for another day or 2 before pulling it out. Would also apply a VAC dressing for the wound before removal of the drain. Patient is mobilizing well weightbearing as tolerated on the LEFT side with the walker and to continue the same. Continue DVT prophylaxis. Continue abduction pillow when in bed and continue standard precautions for the posterior approach hip replacement. Continue IV antibiotics. Case management consult regarding discharge planning. Medical management as per Dr. Donaldson.
[2017-08-23 00:12] VITALS: BP 122/58; PULSE 71; RESP 18; TEMP 36.9; O2SAT 93
--- NOTE | 2017-08-23 04:27 | PC.NURSE ---
PATIENT HAS BEEN SLEEPING MOST OF SHIFT. HE REMAINS IN CHAIR, STATING THE BED IS NOT COMFORTABLE AND HE PREFERS BEING IN THE CHAIR HE SLEEPS IN A RECLINER AT HOME. HE HAS C/O PAIN X1 THIS SHIFT AND RECEIVED PRN PAIN MEDICATIONS WHICH WERE EFFECTIVE. DRESSING TO LEFT HIP REMAINS CDI WITH DRAINS X2. PATIENT CURRENTLY ASLEEP IN CHAIR. NO OTHER PROBLEMS NOTED AT THIS TIME. VSS. WILL CONTINUE TO MONITOR. SAFETY MEASURES IN PLACE, CALL LIGHT IN REACH.
[2017-08-23 04:56] VITALS: BP 131/71; PULSE 68; RESP 16; TEMP 36.6; O2SAT 94
--- NOTE | 2017-08-23 07:19 | HMH.ACPN ---
Internal Medicine - PN: Subj *Date: 08/23/17 *Time: 07:19 Interval history: Patient is doing well. He has no complaints Exam Vital signs and Labs for Last 24 Hours: Temp Pulse Resp BP Pulse Ox 97.9 F 68 16 131/71 94 L 08/23/17 04:56 08/23/17 04:56 08/23/17 04:56 08/23/17 04:56 08/23/17 04:56 Laboratory Results - last 24 hr 08/22/17 10:26: Vancomycin Trough 31.2 H I & O for Last 24 hours: Intake & Output 08/20/17 08/21/17 08/22/17 08/23/17 11:59 11:59 11:59 11:59 Intake Total 3280 / 3280 2417 / 2417 1320 / 1320 Output Total 2080 / 2080 1480 / 1480 2120 / 2120 Balance 1200 / 1200 937 / 937 -800 / -800 Weight 278 lb 3 oz 278 lb 3 oz Microbiology Reports for the Last 24 Hours: Microbiology 08/20/17 15:48 Hip,Left Gram Stain - Final 08/20/17 15:48 Hip,Left Wound Culture - Preliminary NO GROWTH AFTER 48 HOURS - Constitutional no acute distress Assessment and Plan (1) Hypertension Current visit: No Status: Acute Qualifiers: Category: Medical Code(s): I10 - Essential (primary) hypertension (2) Status post left hip replacement Current visit: No Status: Acute Category: Surgical Code(s): Z96.642 - Presence of left artificial hip joint - Assessment and plan all Dx Assessment and Plan for all problems:: Await cultures. Discharge per orthopedic service when ready
[2017-08-23 08:00] VITALS: BP 124/51; PULSE 85; RESP 18; TEMP 36.4; O2SAT 96
[2017-08-23 09:03] LABS: Vancomycin,Trough 16.9 mcg/ml (10.0-20.0)
--- NOTE | 2017-08-23 10:31 | PC.NURSE ---
PT IS SITTING UP IN THE CHAIR, HAS NO COMPLAINTS OF PAIN, ALERT AND ORIENTED X3. CAME TO THE FLOOR THIS MORNING TO ASK ABOUT THE WOUND VAC SO I CONTACTED CARE MANAGEMENT AND THEY STATED THAT THEY WERE SUPPOSE TO BE BRINGING IT TODAY. PT HAS DRESSING NOTED TO THE LT HIP WITH 2 DRAINS ATTACHED. 2+ EDEMA NOTED TO THE BLE. PT HAS BEEN PARTICIPATING WITH PHYSICAL THERAPY. LUNG SOUNDS CLEAR, HYPOACTIVE BOWEL SOUNDS, WILL CONTINUE TO MONITOR.
--- NOTE | 2017-08-23 10:52 | HMH.PHACONS ---
- Pharmacy Consult Date: 08/23/17 Time: 10:52 Referring provider: DR. DORMAN Reason for Consult:: VANCOMYCIN TROUGH LEVEL Allergies and ADEs:: Allergies Allergy/AdvReac Type Severity Reaction Status Date / Time No Known Allergies Allergy Verified 08/20/17 10:29 Home Medications:: Home Medications Medication Instructions Recorded Confirmed Type Amlodipine Besylate [Amlodipine 10 mg PO DAILY 08/06/17 08/20/17 History 10mg Tab] Cyclobenzaprine HCl 10 mg PO TID 08/06/17 08/20/17 History [Cyclobenzaprine 10mg Tab] Glucosa Zamora 2Kcl/Chondroitin Zamora 1 each PO DAILY 08/06/17 08/20/17 History [Glucosamine & Chondroitin Cap] acetaminophen 325 mg tablet 650 mg PO Q4H PRN 08/16/17 08/20/17 History docusate sodium 100 mg capsule 100 mg PO QDAY 08/16/17 08/20/17 History polyethylene glycol 3350 17 17 g PO NEEDED PRN 08/16/17 08/21/17 History gram/dose oral powder Gabapentin [Neurontin 600mg 600 mg PO TID 08/21/17 08/21/17 History tablet] Tramadol HCl [Ultram 50mg 50 mg PO Q6HP PRN 08/21/17 08/21/17 History tablet] Height: 1.78 m Weight: 126.184 kg Laboratory Results:: Laboratory Results - last 24 hr 08/23/17 08:29: Vancomycin Trough 16.9 Medical History: Reports:: Hypertension Denies:: Cancer, Diabetes Mellitus Type 1, Diabetes Mellitus Type 2, MRSA Assessment and Plan (1) History of total left hip arthroplasty Current visit: No Status: Acute Category: Surgical Code(s): Z96.642 - Presence of left artificial hip joint (2) Status post left hip replacement Current visit: No Status: Acute Category: Surgical Code(s): Z96.642 - Presence of left artificial hip joint - Assessment and plan all Dx Assessment and Plan for all problems:: BASED ON PATIENT FACTORS AND VANCOMYCIN TROUGH LEVEL, RECOMMEND RESTARTING VANCOMYCIN 2 GM IV Q18H. PHARMACY WILL CONTINUE TO MONITOR DAILY AND ADJUST APPROPRIATE.
[2017-08-23 16:05] VITALS: BP 149/60; PULSE 86; RESP 18; TEMP 36.8; O2SAT 96
--- NOTE | 2017-08-23 16:38 | SW/DCPLANNER ---
PATIENT GOT HIS WOUND VAC TODAY AND IT WAS APPLIED BY HIS NURSE, CARLOS MCKENNA RN... DR DORMAN STATED HE IS GOING TO NEED 14 DAYS OF IV ANTIBIOTICS AND HAD SUGGESTED [facility] BUT [facility] WILL NOT TAKE HIM BACK THERE SINCE THAT ANTIBIOTIC IS SO EXPENSIVE BUT DR DORMAN STATED HE COULD DO VANC FOR 14 DAYS TO PREVENT SOFT TISSUE INFECTION...HE IS GOING TO NEED A PICC AND THERE ARE NO ORDERS FOR THIS CURRENTLY...I HAVE TEXTED [facility] AND GOING TO MAKE SURE THEY CAN TAKE HIM BACK..IF EVERYTHING WORKS OUT FOR HIM, HE MAY BE CLOSE TO READY FOR A DISPOSITION...CM WILL FOLLOW AND ASSIST INDICATED BY MD...
[2017-08-23 20:00] VITALS: BP 147/65; PULSE 82; RESP 16; TEMP 36.7; O2SAT 96
--- NOTE | 2017-08-23 23:28 | P.PN_ITS ---
Subjective Date: 08/23/17 Time: 12:30 Principal diagnosis: Status post drainage of seroma and limited revision ADRIAN, left Interval history: Patient is status post drainage of seroma and limited revision left total hip arthroplasty post op day #3. Patient is sitting out in the chair and appears comfortable. Says he is doing well and reports no problems. Patient reports very little pain and says it's well-controlled with medication. No history of any nausea or vomiting. He has been apyrexial. No history of any cough, chest pain, shortness of breath or palpitations. Patient says he is eating and drinking well. No history of any distal tingling or numbness. Abnormal lab results 08/21/17 08/21/17 Range/Units 06:20 06:20 WBC 12.8 H D (4.8-10.8) K/mm3 RBC 3.28 L (4.60-6.20) M/mm3 Hgb 9.9 L D (14.1-18.0) g/dL Hct 31.0 L (42.0-52.0) % MCV 94.6 H (80-94) fl MCHC 31.7 L (31.8-35.4) g/dL Plt Count 465 H (142-424) K/mm3 Neut % (Auto) 86.2 H (37.0-80.0) % Lymph % (Auto) 8.4 L (10-50) K/mm3 Neut # (Auto) 11.1 H (1.8-7.8) K/mm3 Neutrophils % (Manual) 92 H (42-76) % Lymphocytes % (Manual) 3 L (10-50) % Glucose 110 H (74-106) mg/dL PN: Obj Ex Vital signs: Temp Pulse Resp BP Pulse Ox 98.3 F 86 18 149/60 96 08/23/17 16:05 08/23/17 16:05 08/23/17 16:05 08/23/17 16:05 08/23/17 16:05 Narrative: Objective: Reviewed the vital signs, input and output, labs, medication, medical progress note and discussed with the nursing staff. 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 Thigh and calf are soft and nontender. On examination of the LEFT hip, he has a VAC dressing in place. 2 drains are still in situ and there is still some active drainage. We would leave the drains in for another day and remove them tomorrow. He has bilateral edema of his lower legs and feet. Distal pulses are 2+. Distal sensation is intact to light touch throughout. No motor deficits noted distally. - Urinary Catheter Management Coude Cath placed during this visit: yes Urethral indwelling: No Insertion date: 08/20/17 Insertion time: 14:45 Progress Note: A&P (1) Seroma complicating a procedure Status: Acute Assessment and Plan for All Diagnoses:: I reviewed the findings and progress with the patient. Patient is doing very well and reports no problems. He is mobilizing well weightbearing as tolerated on the LEFT side with the walker and to continue the same. Continue DVT prophylaxis. Continue abduction pillow when in bed and continue standard precautions for the posterior approach hip replacement. Continue IV antibiotics. Cultures are negative so far. Likely to be discharged home to a detention facility tomorrow. Medical management as per Dr. Donaldson.
[2017-08-24 04:00] VITALS: BP 127/69; PULSE 68; RESP 20; TEMP 36.4; O2SAT 94
--- NOTE | 2017-08-24 07:06 | XR_ITS ---
XR chest portable PICC plac HISTORY: PICC line placement ITS.REASON: Confirm PICC line placement ORDERING PHYSICIAN: Samm Smith MD PATIENT AGE: 71 years COMPARISON: None available FINDINGS: Right upper extremity PICC line has been inserted. The tip is in good position in the region of the superior vena cava. Unremarkable cardiovascular structures with clear lungs. IMPRESSION: Good placement of PICC line
--- NOTE | 2017-08-24 07:20 | HMH.ACPN2 ---
Internal Medicine - PN: Subj *Date: 08/24/17 *Time: 07:20 Interval history: Patient is without complaints this morning. Plan is for patient to have 2 weeks of IV antibiotics while receiving treatment on hip with wound VAC. PICC line will be placed this morning. Anabiotic selection per orthopedic service. Exam Vital signs and Labs for Last 24 Hours: Temp Pulse Resp BP Pulse Ox 97.5 F L 68 20 127/69 94 L 08/24/17 04:00 08/24/17 04:00 08/24/17 04:00 08/24/17 04:00 08/24/17 04:00 Laboratory Results - last 24 hr 08/23/17 08:29: Vancomycin Trough 16.9 I & O for Last 24 hours: Intake & Output 08/21/17 08/22/17 08/23/17 08/24/17 11:59 11:59 11:59 11:59 Intake Total 3280 / 3280 2417 / 2417 1560 / 1560 850 / 850 Output Total 2080 / 2080 1480 / 1480 3070 / 3070 1490 / 1490 Balance 1200 / 1200 937 / 937 -1510 / -1510 -640 / -640 Weight 278 lb 3 oz 278 lb 3 oz 278 lb 3 oz Microbiology Reports for the Last 24 Hours: Microbiology 08/20/17 15:48 Hip,Left Gram Stain - Final 08/20/17 15:48 Hip,Left Wound Culture - Preliminary NO GROWTH AFTER 72 HOURS Assessment and Plan (1) Hypertension Current visit: No Status: Acute Qualifiers: Category: Medical Code(s): I10 - Essential (primary) hypertension (2) Status post left hip replacement Current visit: No Status: Acute Category: Surgical Code(s): Z96.642 - Presence of left artificial hip joint
[2017-08-24 08:05] VITALS: BP 137/53; PULSE 82; RESP 18; TEMP 36.7; O2SAT 97
--- NOTE | 2017-08-24 09:11 | HMH.ORTHPN ---
Subjective Date: 08/24/17 Time: 08:00 Principal diagnosis: Status post drainage of seroma and limited revision ADRIAN, left Interval history: Patient is status post drainage of seroma and limited revision left total hip arthroplasty post op day #4. Patient is lying down on the bed and appears comfortable. He reports that he is doing well and comfortable. Patient has minimal pain and says it's well-controlled with medication. No history of any fevers, chills or rigors, nausea or vomiting. No history of any cough, chest pain, shortness of breath or palpitations. He is being discharged to a detention facility today. PN: Obj Ex Vital signs: Temp Pulse Resp BP Pulse Ox 98.1 F 82 18 137/53 97 08/24/17 08:05 08/24/17 08:05 08/24/17 08:05 08/24/17 08:05 08/24/17 08:05 Narrative: Objective: Reviewed the vital signs, input and output, labs, medication, medical progress note and discussed with the nursing staff. Exam General appearance: alert, active, awake, no acute distress Eyes: normal exam ENT: normal exam Neck: normal inspection Cardiovascular: regular rate & rhythm, normal peripheral pulses, Respiratory: clear to auscultation, normal breath sounds ABD: normal exam; soft and non tender Neuro: alert, packer operator automatic II-XII nml as tested, no deficit, oriented x 3 Psych: normal mood and affect On examination of the lower extremities the limb lengths are equal. Thigh and calf are soft and nontender. On examination of the LEFT hip, he has a VAC dressing in place over the surgical incision. The incision appears clean and dry without signs of any infection. 2 drains are in situ and I have pulled out these today. There is minimal collection in both drains put together. He has bilateral edema of his lower legs and feet. Distal pulses are 2+. Distal sensation is intact to light touch throughout. No motor deficits noted distally. Abnormal lab results 08/21/17 08/21/17 Range/Units 06:20 06:20 WBC 12.8 H D (4.8-10.8) K/mm3 RBC 3.28 L (4.60-6.20) M/mm3 Hgb 9.9 L D (14.1-18.0) g/dL Hct 31.0 L (42.0-52.0) % MCV 94.6 H (80-94) fl MCHC 31.7 L (31.8-35.4) g/dL Plt Count 465 H (142-424) K/mm3 Neut % (Auto) 86.2 H (37.0-80.0) % Lymph % (Auto) 8.4 L (10-50) K/mm3 Neut # (Auto) 11.1 H (1.8-7.8) K/mm3 Neutrophils % (Manual) 92 H (42-76) % Lymphocytes % (Manual) 3 L (10-50) % Glucose 110 H (74-106) mg/dL - Urinary Catheter Management Coude Cath placed during this visit: yes Urethral indwelling: No Insertion date: 08/20/17 Insertion time: 14:45 Progress Note: A&P (1) Seroma complicating a procedure Status: Acute Assessment and plan: I reviewed the findings and progress with the patient and family. He is doing very well and reports no particular problems. He is being discharged to a detention facility today. Advised him to continue mobilization weightbearing as tolerated on the LEFT side with the walker. Continue DVT prophylaxis for total 5 weeks postop. Continue abduction pillow when in bed and continue standard precautions for the posterior approach hip replacement. The intraoperative cultures are negative so far. However, in view of the potential risk of infection, have recommended continuation of IV vancomycin for 2 weeks. Continue VAC dressings for 5-6 days and discontinue if there is no drainage after that. Follow-up in my office in 10-14 days time. Medical management as per Dr. Donaldson.
--- NOTE | 2017-08-24 13:32 | SW/DCPLANNER ---
PATIENT CAN RETURN BACK TO [facility] AND THEY HAVE LOCATED A WOUND VAC AND HE WILL DISCHARGE THERE LATER IN THE AFTERNOON. DONNA STATED HE CAN COME AFTER 2:30 TODAY...
--- NOTE | 2017-08-24 15:19 | PC.NURSE ---
Wound Vac for this patient returned to [facility] by Chris Harkins RN. Case Management notified. Wound Vac will await case picker at the [facility].
--- NOTE | 2017-08-24 15:27 | PC.NURSE ---
WOUND VAC REMOVED AT THIS TIME AND GIVEN TO OMAIRA IRVING. PER WILVER AT [facility] LEAVE WOUND VAC DRESSING ON.
--- NOTE | 2017-08-24 15:30 | HMH.DCSUM ---
General - General Admission date: 08/20/17 Discharge date: 08/24/17 HPI HPI: Patient is a 71-year-old gentleman who underwent a left total hip arthroplasty on 08/07/2017 developed seroma over the left hip incision. He was seen by my colleague Dr. Guzman last week with the history of discharge from his hip incision. He has had wound cultures which have been negative. On his follow-up in the office on 08/20/2017 he continued to have the serous discharge from the wound with associated induration. There is no history of any fevers, chills or rigors. Patient says he feels well within himself and has very little pain which is well controlled with as needed medication. His appetite is normal and he is eating and drinking well. Following his reevaluation in the office decision was made that the best course of action for his management would be an incision and drainage/washout/limited revision hip arthroplasty extending the femoral head and acetabular liner. Patient was also evaluated by Dr. Guzman and he concurred with the this plan. Patient and his daughter who was with him agreed to proceed with this. Objective Vital signs: Temp Pulse Resp BP Pulse Ox 98.1 F 82 18 137/53 97 08/24/17 08:05 08/24/17 08:05 08/24/17 08:05 08/24/17 08:05 08/24/17 08:05 no acute distress, obese - *Routine HEENT Exam Head: Present: normocephalic, atraumatic - *Routine Neck Exam Present: supple, full ROM, trachea midline - *Routine Respiratory Exam Present: CTA bilaterally - *Routine Cardiovascular Exam Present: RRR, Normal S1, Normal S2 - *Routine Abdominal Exam Present: soft, normoactive bowel sounds - *Routine Skin Exam Present: intact, normal turgor - *Routine Neurological Exam Present: alert, oriented X3, CN II-XII intact - Routine Psychiatric Exam Present: normal affect, normal thought process, cooperative - Additional findings Additional findings: On examination of his lower extremities, the alignment is neutral and limb lengths are equal. On examination of his left hip, the surgical incision is clean dry and intact and is healing well. There is no erythema or cellulitis. He has wound VAC dressing in place. There is no surrounding erythema or induration. He has very little tenderness over the left hip. He has fairly good range of pain-free movements. Thigh and calf are soft and nontender. No evidence of DVT noted. Dorsalis pedis and posterior tibial pulses are 2+. Sensation is intact to light touch throughout. Hospital Course Hospital Course: Patient was readmitted to hospital on 08/20/2017 and following appropriate workup, he underwent incision and drainage of seroma left hip with limited revision of his left hip arthroplasty. We have extend the femoral head and acetabular liner new ones. At the time of surgery there was a lot of serous fluid in the soft tissue but no pus was noted. Gram stain intraoperatively was negative and there were only 1-2 white cells per high-power field. Appropriate wound cultures were obtained both from the superficial tissue as well as deep from inside the hip joint. The intraoperative cultures have been negative so far. He did very well after surgery and progressed well along the expected lines. He started ambulating weightbearing as tolerated on the left side from the first postoperative day. He managed this very well using a walker under physical therapy guidance. His pain is well controlled with oral analgesics. He is surgical incision remained clean and healthy without any active discharge or signs of infection. Because of the development of seroma after previous surgery and continued collection in the drains after 48 hours, and recommended application of wound VAC dressings to surgical incision. Recommend continuation of VAC dressings for 5-6 days and discontinue after that if there is no drainage. He stayed hemodynamically stable throughout after surgery. His distal neurovas
--- NOTE | 2017-08-24 15:41 | P.DS_ITS ---
General - General Admission date: 08/20/17 Discharge date: 08/24/17 HPI HPI: Patient is a 71-year-old gentleman who underwent a left total hip arthroplasty on 08/07/2017 developed seroma over the left hip incision. He was seen by my colleague Dr. Guzman last week with the history of discharge from his hip incision. He has had wound cultures which have been negative. On his follow- up in the office on 08/20/2017 he continued to have the serous discharge from the wound with associated induration. There is no history of any fevers, chills or rigors. Patient says he feels well within himself and has very little pain which is well controlled with as needed medication. His appetite is normal and he is eating and drinking well. Following his reevaluation in the office decision was made that the best course of action for his management would be an incision and drainage/washout/limited revision hip arthroplasty extending the femoral head and acetabular liner. Patient was also evaluated by Dr. Guzman and he concurred with the this plan. Patient and his daughter who was with him agreed to proceed with this. Objective Vital signs: Temp Pulse Resp BP Pulse Ox 98.1 F 82 18 137/53 97 08/24/17 08:05 08/24/17 08:05 08/24/17 08:05 08/24/17 08:05 08/24/17 08:05 no acute distress, obese - *Routine HEENT Exam Head: Present: normocephalic, atraumatic - *Routine Neck Exam Present: supple, full ROM, trachea midline - *Routine Respiratory Exam Present: CTA bilaterally - *Routine Cardiovascular Exam Present: RRR, Normal S1, Normal S2 - *Routine Abdominal Exam Present: soft, normoactive bowel sounds - *Routine Skin Exam Present: intact, normal turgor - *Routine Neurological Exam Present: alert, oriented X3, CN II-XII intact - Routine Psychiatric Exam Present: normal affect, normal thought process, cooperative - Additional findings Additional findings: On examination of his lower extremities, the alignment is neutral and limb lengths are equal. On examination of his left hip, the surgical incision is clean dry and intact and is healing well. There is no erythema or cellulitis. He has wound VAC dressing in place. There is no surrounding erythema or induration. He has very little tenderness over the left hip. He has fairly good range of pain-free movements. Thigh and calf are soft and nontender. No evidence of DVT noted. Dorsalis pedis and posterior tibial pulses are 2+. Sensation is intact to light touch throughout. Hospital Course Hospital Course: Patient was readmitted to hospital on 08/20/2017 and following appropriate workup , he underwent incision and drainage of seroma left hip with limited revision of his left hip arthroplasty. We have extend the femoral head and acetabular liner new ones. At the time of surgery there was a lot of serous fluid in the soft tissue but no pus was noted. Gram stain intraoperatively was negative and there were only 1-2 white cells per high-power field. Appropriate wound cultures were obtained both from the superficial tissue as well as deep from inside the hip joint. The intraoperative cultures have been negative so far. He did very well after surgery and progressed well along the expected lines. He started ambulating weightbearing as tolerated on the left side from the first postoperative day. He managed this very well using a walker under physical therapy guidance. His pain is well controlled with oral analgesics. He is surgical incision remained clean and healthy without any active discharge or signs of infection. Because of the
== END 2017-08-24 16:06 | DRG 908 ==
PROVIDERS: Orthopaedic Surgery; Admitting Provider Orthopaedic Surgery; Family Provider Family Medicine; PCP Family Medicine; Visit Provider Orthopaedic Surgery
PROC: 0SRB049 Replacement of Left Hip Joint with Ceramic on Polyethylene Synthetic Substitute, Cemented, Open Approach (ICD-10-PCS; CPT 27130; principal; 2017-08-20 13:00)
DX: M96.842 Postprocedural seroma of a musculoskeletal structure following a musculoskeletal system procedure (principal); T84.091A Other mechanical complication of internal left hip prosthesis, initial encounter; I10 Essential (primary) hypertension
CPT/HCPCS: 27134; 36415; 36569; 71045; 73502; 80048; 80053; 80202; 81001; 85007; 85025; 85610; 85651; 86140; 86850; 87070; 87205; 94760; 94761; 97116; 97161; A4649; C1713; C1751; J0697; J2405; J2710; J3370

== ENCOUNTER 2017-09-04 13:50 | Outpatient (CLI) | payer MEDICARE, OTHER, SELFPAY ==
--- NOTE | 2017-09-04 13:55 | XR_ITS ---
XR hip LT 2-3V w/pelvis HISTORY: Follow-up hip replacement ITS.REASON: 10 days post op Left hip ARTHROPLASTY ORDERING PHYSICIAN: Samm Smith MD PATIENT AGE: 71 years COMPARISON: 08/20/2017 FINDINGS: Status post total left hip replacement. Good alignment. No evidence of acute fracture or dislocation. The inferior screw of the acetabular cup extends into the pelvis past the medial aspect of the cortex by at 8 mm. There are degenerative changes of the lumbar spine and right hip. IMPRESSION: Status post total left hip replacement as described above with good alignment of the prosthesis. The inferior acetabular screw does extend past the medial cortex of the acetabulum x 8 mm
== END 2017-09-04 15:00 | disposition home or self-care (01) ==
LOC: INF 13:52
PROVIDERS: PCP Family Medicine; Visit Provider Orthopaedic Surgery
DX: Z96.642 Presence of left artificial hip joint (principal)
CPT/HCPCS: 73502; G0463

== ENCOUNTER → 2017-10-03 09:44 | Outpatient (CLI) | payer MEDICARE, OTHER, SELFPAY ==
--- NOTE | 2017-10-03 09:49 | XR_ITS ---
XR hip LT 2-3V w/pelvis HISTORY: Follow-up hip replacement ITS.REASON: postoperative visit ORDERING PHYSICIAN: Samm Smith MD PATIENT AGE: 71 years COMPARISON: 09/04/2017 FINDINGS: There is a total left hip prosthesis present in good position. No fracture or dislocation. The inferior acetabular screw does project into the pelvis as previously described. Mild osteoarthritic changes involve the right hip and there are degenerative changes in the lower lumbar spine IMPRESSION: Status post total hip replacement with no acute finding and no significant change
== END ==
PROVIDERS: PCP Family Medicine; Visit Provider Orthopaedic Surgery
DX: Z96.642 Presence of left artificial hip joint (principal)
CPT/HCPCS: 73502

== ENCOUNTER → 2017-12-06 08:37 | Outpatient (CLI) | payer MEDICARE, OTHER, SELFPAY ==
--- NOTE | 2017-12-06 08:39 | XR_ITS ---
XR hip LT 2-3V w/pelvis HISTORY: Follow-up left hip replacement ITS.REASON: s/p LEFT ADRIAN dos 08/07/17 ORDERING PHYSICIAN: Samm Smith MD PATIENT AGE: 72 years COMPARISON: 10/03/2017 FINDINGS: Status post total left hip replacement with good alignment of the prosthesis and no significant change compared to the previous exam. No evidence of dislocation. The inferior screw of the acetabular cup extends beyond the roof of the acetabulum medially x 12 mm unchanged. There is degenerative disc disease in the lower lumbar spine and there are mild osteoarthritic right hip. Diffuse vascular calcification is also present. IMPRESSION: No change status post total left hip replacement with good alignment
== END ==
PROVIDERS: PCP Family Medicine; Visit Provider Orthopaedic Surgery
DX: Z96.642 Presence of left artificial hip joint (principal); Z09 Encounter for follow-up examination after completed treatment for conditions other than malignant neoplasm; I89.0 Lymphedema, not elsewhere classified
CPT/HCPCS: 73502

== ENCOUNTER → 2018-05-15 09:41 | Outpatient (CLI) | payer MEDICARE, OTHER, SELFPAY ==
--- NOTE | 2018-05-15 09:45 | XR_ITS ---
XR hip LT 2-3V w/pelvis HISTORY: Follow-up hip replacement with left hip pain ITS.REASON: total hip replacement 08/07/17; having left hip pain ORDERING PHYSICIAN: Samm Smith MD PATIENT AGE: 72 years COMPARISON: 12/06/2017 FINDINGS: Status post total left hip replacement. There remains good alignment with no evidence of acute fracture or dislocation. No evidence of prosthesis dislocation.. No change in the intrapelvic extension of the inferior acetabular cup screw. Mild osteoarthritic changes are present involving the right hip and there is degenerative disc disease at L4 L5. IMPRESSION: No change status post total left hip replacement with no acute finding
[2018-05-15 11:33] LABS: Basophils # 0.1 K/mm3 (0-0.2); Basophils % 1.2 % (0.1-2.0); Eosinophils # 0.5 K/mm3 (0.0-0.4); Eosinophils % 6.5 % (0.1-12.0); Hematocrit 45.6 % (42.0-52.0); Lymphocytes % 26.5 K/mm3 (10-50); Mean Corpuscular HGB Conc 32.9 g/dL (31.8-35.4); Mean Corpuscular Volume 94.3 fl (80-94); Mean Platelet Volume 7.9 fl (7.4-10.4); Monocytes # 0.7 K/mm3 (0.1-1.0); Monocytes % 9.2 % (1.7-9.3); Neutrophils # 4.3 K/mm3 (1.8-7.8); Neutrophils % 56.7 % (37.0-80.0); Platelet Count 316 K/mm3 (142-424); Red Blood Count 4.83 M/mm3 (4.60-6.20); Red Cell Distribution Width 13.6 % (11.5-17.5); White Blood Count 7.7 K/mm3 (4.8-10.8)
[2018-05-15 12:06] LABS: C-Reactive Protein < 0.2 mg/L (0.0-0.9)
[2018-05-15 13:29] LABS: Erythrocyte Sedimentation Rate 41 mm/hr (0-20)
== END ==
PROVIDERS: PCP Family Medicine; Visit Provider Orthopaedic Surgery
DX: Z96.642 Presence of left artificial hip joint (principal)
CPT/HCPCS: 36415; 73502; 85025; 85651; 86140

== ENCOUNTER → 2018-05-15 11:16 | Outpatient (CLI) | payer MEDICARE, OTHER, SELFPAY | PROVIDERS: Family Provider Family Medicine; PCP Family Medicine; Visit Provider Orthopaedic Surgery | DX: Z96.642 Presence of left artificial hip joint (principal) | CPT/HCPCS: 36415; 73502; 85025; 85651; 86140 ==

== ENCOUNTER → 2018-05-22 15:05 | Outpatient (CLI) | payer MEDICARE, OTHER, SELFPAY ==
--- NOTE | 2018-05-22 15:07 | MR_ITS ---
MR lumbar spine wo con, MR 3-d myelogram/MRCP HISTORY: PT states low back pain X years off and on recently X 1 Month. LT leg and groin pain, some numbness and tingling. PT states hip replacement in AUG 2017. ITS.REASON: LUMBAR RADICULOPATHY ORDERING PHYSICIAN: Trav Donaldson MD PATIENT AGE: 72 years Comparison: MRI 07/21/16 TECHNIQUE: Standard multiplanar multiecho sequences are performed without contrast. 3-D MIP and myelographic images are also rendered and reviewed FINDINGS: There is normal alignment. The spinal cord is at the T12 level. There is mild lumbar scoliosis convex right. There is multilevel degenerative disc disease with endplate hypertrophic change and bulging disc along with facet and ligamentum flavum hypertrophy. T11-T12: Mild degenerative disc disease. T12-L1: Mild degenerative disc disease. L1-L2: Degenerative disc disease with bulging disc along with facet and ligamentum flavum hypertrophy with bilateral lateral recess narrowing and bilateral foraminal narrowing.. The bulging disc is slightly more prominent compared to the previous exam. There is narrowing of the canal with mild impingement upon the anterior aspect of the thecal sac from the bulging disc. L2 L3: Degenerative disc disease with endplate hypertrophy and bulging disc along with facet and ligamentum flavum hypertrophy. Prominent left lateral osteophytes. There is transverse narrowing of the canal. There is severe left-sided foraminal narrowing from facet and ligamentum flavum hypertrophy and the bulging disc similar to the previous exam. There is canal stenosis. The bulging disc and narrowing of the canal appears slightly worse on today's study. L3-L4: Degenerative disc disease with bulging disc along with facet and ligamentum flavum hypertrophy with severe narrowing of the canal in the transverse plane at 6 mm. There are severe bilateral lateral recess and foraminal narrowing. L4-L5: Degenerative disc disease with bulging disc and endplate hypertrophic change. The bulging disc is somewhat eccentric toward the right. There are severe right lateral recess and foraminal narrowing and moderate left lateral recess and foraminal narrowing. There is canal stenosis at 10 mm. L5-S1: Degenerative disc disease with bulging disc with facet and ligamentum flavum hypertrophy with mild bilateral lateral recess narrowing and severe left bilateral foraminal narrowing. IMPRESSION: Abnormal MRI of the lumbar spine. There is multilevel degenerative disc disease along with endplate hypertrophic change bulging disc, facet and ligamentum flavum hypertrophy with multilevel canal stenosis and severe lateral recess and foraminal narrowing. Please see above for detailed description at each level No extruded herniated disc.
== END ==
PROVIDERS: Family Provider Family Medicine; PCP Family Medicine; Visit Provider Family Medicine
DX: M54.16 Radiculopathy, lumbar region (principal)
CPT/HCPCS: 72148; 76376

== ENCOUNTER → 2018-06-03 09:40 | Outpatient (POV) | payer MEDICARE, OTHER, SELFPAY ==
[2018-06-03 10:02] VITALS: BP 181/77; PULSE 70; RESP 18; O2SAT 98; BMI 40.1
--- NOTE | 2018-06-03 11:27 | HMH.PAINSOAP ---
[facility] Pain Management SOAP Note Subjective:: Patient is a pleasant 72-year-old white male who presents today for follow-up. Patient was seen last year in our clinic and received SI joint injections however since then he has had a hip replacement and was doing well until recently. Patient states that he has pain in his bilateral SI joints and down in his hip at times. Patient is currently working at [employer]. Patient is currently on tramadol 50 mg 1 p.o. twice daily and gabapentin 100 mg 1 p.o. 3 times daily. He denies side effects to this. Patient's LENCHO #[id number] reviewed and appropriate. He denies side effects to his medication. ROS General: no recent weight change, no fever, no sleep disturbances Respiratory: no cough, no shortness of air, no recurring pulmonary infections Cardiovascular/Peripheral Vascular: No chest pain, No palpitations, no edema, no shortness of breath. Gastrointestinal: no incontinence, normal bowel movements reported Genitourinary: no incontinence Musculoskeletal: Bilateral SI joint pain Psychiatric: normal mood/ affect Neurological: [denies weakness in extremities], [denies balance issues] Objective:: Physical Exam General: Alert and oriented x3, no acute distress, pleasant and cooperative, [on room air] Lungs: Resps E/U, Symmetrical chest expansion, Eyes: PERRL Musculoskeletal: Flexion and extension of lumbar spine somewhat guarded secondary to pain, deep tendon reflexes normal, strength in upper and lower extremities [5/5], [abnormal gait noted] SI joint pain, positive Chun's test bilaterally Neurological: speech clear, floor care technician equal, no gross sensory deficits Assessment:: Degenerative disc disease lumbar spine, sacroiliitis Plan:: We will refill his tramadol 50 mg and increase it up to 3 times a day as needed and gabapentin 100 mg 1 p.o. 3 times daily. We will give him 2 [address] medication[address] Dr. Santiago has reviewed this chart and agrees with this plan. We will schedule him for bilateral SI joint injections. This note was dictated using voice recognition software and may contain errors or omissions
--- NOTE | 2018-06-03 11:30 | P.CONS_ITS ---
[facility] Pain Management SOAP Note Subjective:: Patient is a pleasant 72-year-old white male who presents today for follow-up. Patient was seen last year in our clinic and received SI joint injections however since then he has had a hip replacement and was doing well until recently. Patient states that he has pain in his bilateral SI joints and down in his hip at times. Patient is currently working at [employer]. Patient is currently on tramadol 50 mg 1 p.o. twice daily and gabapentin 100 mg 1 p.o. 3 times daily. He denies side effects to this. Patient's LENCHO #[id number] reviewed and appropriate. He denies side effects to his medication. ROS General: no recent weight change, no fever, no sleep disturbances Respiratory: no cough, no shortness of air, no recurring pulmonary infections Cardiovascular/Peripheral Vascular: No chest pain, No palpitations, no edema, no shortness of breath. Gastrointestinal: no incontinence, normal bowel movements reported Genitourinary: no incontinence Musculoskeletal: Bilateral SI joint pain Psychiatric: normal mood/ affect Neurological: [denies weakness in extremities], [denies balance issues] Objective:: Physical Exam General: Alert and oriented x3, no acute distress, pleasant and cooperative, [on room air] Lungs: Resps E/U, Symmetrical chest expansion, Eyes: PERRL Musculoskeletal: Flexion and extension of lumbar spine somewhat guarded secondary to pain, deep tendon reflexes normal, strength in upper and lower extremities [5/5], [abnormal gait noted] SI joint pain, positive Chun's test bilaterally Neurological: speech clear, veterinary manager equal, no gross sensory deficits Assessment:: Degenerative disc disease lumbar spine, sacroiliitis Plan:: We will refill his tramadol 50 mg and increase it up to 3 times a day as needed and gabapentin 100 mg 1 p.o. 3 times daily. We will give him [address] Santiago has reviewed this chart and agrees with this plan. We will schedule him for bilateral SI joint injections. This note was dictated using voice recognition software and may contain errors or omissions
== END ==
PROVIDERS: PCP Family Medicine; Visit Provider Clinical Nurse Specialist Family Health
DX: M51.36 Other intervertebral disc degeneration, lumbar region (principal); M46.1 Sacroiliitis, not elsewhere classified
CPT/HCPCS: 99213

== ENCOUNTER 2018-06-05 09:00 | Outpatient (RCR) | payer MEDICARE, OTHER, SELFPAY | END 2018-06-05 09:05 | disposition home or self-care (01) | LOC: PT 09:00 | PROVIDERS: Family Provider Family Medicine; PCP Family Medicine; Visit Provider Podiatrist | DX: I89.0 Lymphedema, not elsewhere classified (principal) | CPT/HCPCS: 97110; 97140; 97162; 97760 ==

== ENCOUNTER → 2018-07-09 08:42 | Outpatient (POV) | payer MEDICARE, OTHER, SELFPAY ==
[2018-07-09 08:52] VITALS: BP 183/93; PULSE 72; RESP 18; O2SAT 98; BMI 40.1
--- NOTE | 2018-07-09 09:05 | P.CONS_ITS ---
[facility] Pain Management SOAP Note Subjective:: Patient is a pleasant 72-year-old white male who we are treating for bilateral hip pain. Patient is status post bilateral SI joint injections. He is doing extremely well rating his pain a 0 out of 10 today. Patient states he is much more functional and able to work for longer hours. Patient would like to repeat these injections in several months. ROS General: no recent weight change, no fever, no sleep disturbances Respiratory: no cough, no shortness of air, no recurring pulmonary infections Cardiovascular/Peripheral Vascular: No chest pain, No palpitations, no edema, no shortness of breath. Gastrointestinal: no incontinence, normal bowel movements reported Genitourinary: no incontinence Musculoskeletal: Hip pain, SI joint pain at times Psychiatric: normal mood/ affect Neurological: [denies weakness in extremities], [denies balance issues] Objective:: Physical Exam General: Alert and oriented x3, no acute distress, pleasant and cooperative, [on room air] Lungs: Resps E/U, Symmetrical chest expansion, Eyes: PERRL Musculoskeletal: Flexion and extension of lumbar spine somewhat guarded secondary to pain, deep tendon reflexes normal, strength in upper and lower extremities [5/5], slightly antalgic gait noted Neurological: speech clear, last remodeler repairer equal, no gross sensory deficits Assessment:: Sacroiliitis, hip pain Plan:: We will set the patient up for bilateral SI joint injections in 3 months and reassess him at that time. Patient's been instructed to call the office if he has any issues prior to his next appointment. This note was dictated using voice recognition software and may contain errors or omissions
== END ==
PROVIDERS: PCP Family Medicine; Visit Provider Clinical Nurse Specialist Family Health
DX: M46.1 Sacroiliitis, not elsewhere classified (principal); M25.559 Pain in unspecified hip
CPT/HCPCS: 99213

== ENCOUNTER → 2018-07-12 08:35 | Outpatient (CLI) | payer MEDICARE, OTHER, SELFPAY ==
--- NOTE | 2018-07-12 08:39 | XR_ITS ---
XR knee RT 4V HISTORY: Right knee pain and swelling ITS.REASON: 4 views weightbearing ORDERING PHYSICIAN: Samm Smith MD PATIENT AGE: 72 years COMPARISON: 12/29/2011 FINDINGS: Moderate osteoarthritic changes are present at the medial compartment with moderate to severe osteoarthritis of the patellofemoral joint and mild osteoarthritis of the lateral compartment. No fracture or dislocation. No lytic or blastic change. IMPRESSION: Moderate to severe osteoarthritis
== END ==
PROVIDERS: PCP Family Medicine; Visit Provider Orthopaedic Surgery
DX: M25.561 Pain in right knee (principal)
CPT/HCPCS: 73564

== ENCOUNTER → 2018-08-05 10:38 | Outpatient (POV) | payer MEDICARE, OTHER, SELFPAY ==
[2018-08-05 11:07] VITALS: BP 166/70; PULSE 70; RESP 18; O2SAT 98; BMI 43.0
--- NOTE | 2018-08-05 11:47 | HMH.PAINSOAP ---
[facility] Pain Management SOAP Note Subjective:: Patient is a pleasant 72-year-old white male who presents today for discussion in regards to new back pain he is having. Patient was working long hours during the [place] break and he is having a lot of back pain and bilateral leg pain. Patient has been tried anti-inflammatories with no relief. He is continuing his home stretching program however it has not helped. Patient has had lumbar epidural steroid injections in the past and this is been beneficial for him. He rates his pain today a 7 out of 10. ROS General: no recent weight change, no fever, no sleep disturbances Respiratory: no cough, no shortness of air, no recurring pulmonary infections Cardiovascular/Peripheral Vascular: No chest pain, No palpitations, no edema, no shortness of breath. Gastrointestinal: no incontinence, normal bowel movements reported Genitourinary: no incontinence Musculoskeletal: Back pain, leg pain Psychiatric: normal mood/ affect Neurological: [denies weakness in extremities], [denies balance issues] Objective:: Physical Exam General: Alert and oriented x3, no acute distress, pleasant and cooperative, [on room air] Lungs: Resps E/U, Symmetrical chest expansion, Eyes: PERRL Musculoskeletal: Flexion and extension of lumbar spine somewhat guarded secondary to pain, deep tendon reflexes normal, strength in upper and lower extremities [5/5], [abnormal gait noted] positive straight leg raise test bilaterally at 30 degrees Neurological: speech clear, insurance processing clerk equal, no gross sensory deficits Assessment:: Degenerative disc disease lumbar spine with lumbar radiculopathy Plan:: We will schedule L4-L5 lumbar epidural steroid injection for the patient he is not on any anticoagulation. He is continuing with anti-inflammatory medications. I will follow-up with him after his injection. This note was dictated using voice recognition software and may contain errors or omissions
--- NOTE | 2018-08-05 11:50 | P.CONS_ITS ---
[facility] Pain Management SOAP Note Subjective:: Patient is a pleasant 72-year-old white male who presents today for discussion in regards to new back pain he is having. Patient was working long hours during the [place] break and he is having a lot of back pain and bilateral leg pain. Patient has been tried anti-inflammatories with no relief. He is continuing his home stretching program however it has not helped. Patient has had lumbar epidural steroid injections in the past and this is been beneficial for him. He rates his pain today a 7 out of 10. ROS General: no recent weight change, no fever, no sleep disturbances Respiratory: no cough, no shortness of air, no recurring pulmonary infections Cardiovascular/Peripheral Vascular: No chest pain, No palpitations, no edema, no shortness of breath. Gastrointestinal: no incontinence, normal bowel movements reported Genitourinary: no incontinence Musculoskeletal: Back pain, leg pain Psychiatric: normal mood/ affect Neurological: [denies weakness in extremities], [denies balance issues] Objective:: Physical Exam General: Alert and oriented x3, no acute distress, pleasant and cooperative, [on room air] Lungs: Resps E/U, Symmetrical chest expansion, Eyes: PERRL Musculoskeletal: Flexion and extension of lumbar spine somewhat guarded second misael to pain, deep tendon reflexes normal, strength in upper and lower extremities [5/5], [abnormal gait noted] positive straight leg raise test bilaterally at 30 degrees Neurological: speech clear, cheese weigher equal, no gross sensory deficits Assessment:: Degenerative disc disease lumbar spine with lumbar radiculopathy Plan:: We will schedule L4-L5 lumbar epidural steroid injection for the patient he is not on any anticoagulation. He is continuing with anti-inflammatory medications. I will follow-up with him after his injection. This note was dictated using voice recognition software and may contain errors or omissions
== END ==
PROVIDERS: PCP Family Medicine; Visit Provider Clinical Nurse Specialist Family Health
DX: M51.16 Intervertebral disc disorders with radiculopathy, lumbar region (principal)
CPT/HCPCS: 99213

== ENCOUNTER → 2018-08-27 13:21 | Outpatient (CLI) | payer MEDICARE, OTHER, SELFPAY ==
--- NOTE | 2018-08-27 13:24 | XR_ITS ---
XR hip RT 2-3V w/pelvis HISTORY: ITS.REASON: right hip pain ORDERING PHYSICIAN: Samm Smith MD PATIENT AGE: 72 years COMPARISON: None 05/15/2018 FINDINGS: There are mild osteoarthritic changes of the right hip with decrease in the joint space and small osteophytes along the femoral head and acetabulum. No fracture or dislocation. No lytic or blastic change. There is degenerative disc disease in the lower lumbar spine with osteophyte formation. A total left hip prosthesis is present. The lower screw of the acetabulum extends past the bony cortex of the pelvis by approximately 13 mm as before. IMPRESSION: Mild osteoarthritis of the right hip
== END ==
PROVIDERS: PCP Family Medicine; Visit Provider Orthopaedic Surgery
DX: M25.551 Pain in right hip (principal)
CPT/HCPCS: 73502

== ENCOUNTER → 2018-09-03 09:46 | Outpatient (POV) | payer MEDICARE, OTHER, SELFPAY ==
[2018-09-03 09:58] VITALS: BP 138/87; PULSE 75; RESP 18; O2SAT 98; BMI 43.6
--- NOTE | 2018-09-03 10:04 | HMH.PAINSOAP ---
[facility] Pain Management SOAP Note Subjective:: Patient is a pleasant 72-year-old white male who we are treating for low back pain with lumbar radiculopathy. Patient is doing well stating that he has no back pain after his last lumbar epidural steroid injection. Patient is having a lot of right knee pain which he is seeing his orthopedic surgeon for. His knee an 8 out of 10. ROS General: no recent weight change, no fever, no sleep disturbances Respiratory: no cough, no shortness of air, no recurring pulmonary infections Cardiovascular/Peripheral Vascular: No chest pain, No palpitations, no edema, no shortness of breath. Gastrointestinal: no incontinence, normal bowel movements reported Genitourinary: no incontinence Musculoskeletal: Back pain at times, knee pain Psychiatric: normal mood/ affect Neurological: [denies weakness in extremities], [denies balance issues] Objective:: Physical Exam General: Alert and oriented x3, no acute distress, pleasant and cooperative, [on room air] Lungs: Resps E/U, Symmetrical chest expansion, Eyes: PERRL Musculoskeletal: Flexion and extension of lumbar spine somewhat guarded secondary to pain, deep tendon reflexes normal, strength in upper and lower extremities [5/5], [abnormal gait noted] Neurological: speech clear, carpet finishing supervisor equal, no gross sensory deficits Assessment:: degenerative disc disease lumbar spine with lumbar radiculopathy, right knee pain Plan:: We will follow-up with the patient in 2 months and reassess his symptoms at that time. He is been instructed to call the office if he has any issues prior to his next appointment. Patient is good to follow-up with his orthopedic surgeon. Dr. Santiago has reviewed this note and agrees with this plan of care. This note was dictated using voice recognition software and may contain errors or omissions
== END ==
PROVIDERS: PCP Family Medicine; Visit Provider Clinical Nurse Specialist Family Health
DX: M51.16 Intervertebral disc disorders with radiculopathy, lumbar region (principal); M25.561 Pain in right knee
CPT/HCPCS: 99213

== ENCOUNTER → 2018-10-28 09:30 | Outpatient (POV) | payer MEDICARE, OTHER, SELFPAY ==
[2018-10-28 09:45] VITALS: BP 168/73; PULSE 78; RESP 18; O2SAT 98; BMI 43.7
--- NOTE | 2018-10-28 10:07 | HMH.PAINSOAP ---
[facility] Pain Management SOAP Note Subjective:: Patient is a pleasant 72-year-old white male who presents today for follow-up. Patient is doing well other than his right knee pain. Patient rates his pain a 5 out of 10 today. Patient is doing well at with his hip at this time. Patient would like to follow-up as needed. ROS General: no recent weight change, no fever, no sleep disturbances Respiratory: no cough, no shortness of air, no recurring pulmonary infections Cardiovascular/Peripheral Vascular: No chest pain, No palpitations, no edema, no shortness of breath. Gastrointestinal: no incontinence, normal bowel movements reported Genitourinary: no incontinence Musculoskeletal: Back pain at times, knee pain Psychiatric: normal mood/ affect Neurological: [denies weakness in extremities], [denies balance issues] Objective:: Physical Exam General: Alert and oriented x3, no acute distress, pleasant and cooperative, [on room air] Lungs: Resps E/U, Symmetrical chest expansion, Eyes: PERRL Musculoskeletal: Flexion and extension of lumbar spine somewhat guarded secondary to pain, deep tendon reflexes normal, strength in upper and lower extremities [5/5], [abnormal gait noted] Neurological: speech clear, psych nurse equal, no gross sensory deficits Assessment:: Degenerative disc disease lumbar spine with lumbar radiculopathy, right knee pain Plan:: We will follow-up with the patient on an as-needed basis. Patient's going to call us when he is interested in following up. Dr. Santiago has reviewed this note and agrees with this plan of care. This note was dictated using voice recognition software and may contain errors or omissions
--- NOTE | 2018-10-28 10:11 | P.CONS_ITS ---
[facility] Pain Management SOAP Note Subjective:: Patient is a pleasant 72-year-old white male who presents today for follow-up. Patient is doing well other than his right knee pain. Patient rates his pain a 5 out of 10 today. Patient is doing well at with his hip at this time. Patient would like to follow-up as needed. ROS General: no recent weight change, no fever, no sleep disturbances Respiratory: no cough, no shortness of air, no recurring pulmonary infections Cardiovascular/Peripheral Vascular: No chest pain, No palpitations, no edema, no shortness of breath. Gastrointestinal: no incontinence, normal bowel movements reported Genitourinary: no incontinence Musculoskeletal: Back pain at times, knee pain Psychiatric: normal mood/ affect Neurological: [denies weakness in extremities], [denies balance issues] Objective:: Physical Exam General: Alert and oriented x3, no acute distress, pleasant and cooperative, [on room air] Lungs: Resps E/U, Symmetrical chest expansion, Eyes: PERRL Musculoskeletal: Flexion and extension of lumbar spine somewhat guarded secondary to pain, deep tendon reflexes normal, strength in upper and lower extremities [5/5], [abnormal gait noted] Neurological: speech clear, medical record assistant equal, no gross sensory deficits Assessment:: Degenerative disc disease lumbar spine with lumbar radiculopathy, right knee pain Plan:: We will follow-up with the patient on an as-needed basis. Patient's going to call us when he is interested in following up. Dr. Santiago has reviewed this note and agrees with this plan of care. This note was dictated using voice recognition software and may contain errors or omissions
== END ==
PROVIDERS: PCP Family Medicine; Visit Provider Clinical Nurse Specialist Family Health
DX: M51.16 Intervertebral disc disorders with radiculopathy, lumbar region (principal); M25.561 Pain in right knee
CPT/HCPCS: 99213

== ENCOUNTER → 2018-11-26 08:57 | Outpatient (POV) | payer MEDICARE, OTHER, SELFPAY ==
--- NOTE | 2018-11-26 09:17 | P.CONS_ITS ---
[facility] Pain Management SOAP Note Subjective:: Patient is a pleasant 73-year-old white male who presents today for follow-up. Patient is overall doing well his back pain is nothing he rates it a 0 out of 10. He is having some left SI joint pain. He rates it a 3 out of 10. Patient would like an injection prior to getting worse. Patient has had injections in the past he gets 80% relief up to 4 months. ROS General: no recent weight change, no fever, no sleep disturbances Respiratory: no cough, no shortness of air, no recurring pulmonary infections Cardiovascular/Peripheral Vascular: No chest pain, No palpitations, no edema, no shortness of breath. Gastrointestinal: no incontinence, normal bowel movements reported Genitourinary: no incontinence Musculoskeletal: SI joint pain Psychiatric: normal mood/ affect Neurological: [denies weakness in extremities], [denies balance issues] Objective:: Physical Exam General: Alert and oriented x3, no acute distress, pleasant and cooperative, [on room air] Lungs: Resps E/U, Symmetrical chest expansion, Eyes: PERRL Musculoskeletal: Flexion and extension of lumbar spine somewhat guarded secondary to pain, deep tendon reflexes normal, strength in upper and lower extremities [5/5], [abnormal gait noted] positive James's test, positive thigh thrust test and positive SI joint compression test on the left side Neurological: speech clear, packer operator automatic equal, no gross sensory deficits Assessment:: Sacroiliitis, degenerative disc disease lumbar spine Plan:: We will set the patient up for left SI joint injection given the efficacy of this in the past I believe it would be beneficial. He is continuing a home stretching program and is on anti-inflammatories. Dr. Santiago has reviewed this note and agrees with this plan of care. This note was dictated using voice recognition software and may contain errors or omissions
[2018-11-26 09:25] VITALS: BP 181/93; PULSE 71; RESP 18; O2SAT 99; BMI 43.0
== END ==
PROVIDERS: PCP Family Medicine; Visit Provider Clinical Nurse Specialist Family Health
DX: M46.1 Sacroiliitis, not elsewhere classified (principal); M51.36 Other intervertebral disc degeneration, lumbar region
CPT/HCPCS: 99212

== ENCOUNTER → 2018-12-23 10:33 | Outpatient (POV) | payer MEDICARE, OTHER, SELFPAY ==
[2018-12-23 10:45] VITALS: BP 175/88; PULSE 68; RESP 18; O2SAT 98; BMI 43.0
--- NOTE | 2018-12-23 10:56 | HMH.PAINSOAP ---
[facility] Pain Management SOAP Note Subjective:: Patient is a pleasant 73-year-old white male who presents today for follow-up after his left SI joint injection. Patient is doing extremely well. Patient rates his pain a 0 out of 10 patient does not need any more injections at this time. Patient would like to follow-up on an as-needed basis. ROS General: no recent weight change, no fever, no sleep disturbances Respiratory: no cough, no shortness of air, no recurring pulmonary infections Cardiovascular/Peripheral Vascular: No chest pain, No palpitations, no edema, no shortness of breath. Gastrointestinal: no incontinence, normal bowel movements reported Genitourinary: no incontinence Musculoskeletal: Back pain, hip pain at times Psychiatric: normal mood/ affect Neurological: [denies weakness in extremities], [denies balance issues] Objective:: Physical Exam General: Alert and oriented x3, no acute distress, pleasant and cooperative, [on room air] Lungs: Resps E/U, Symmetrical chest expansion, Eyes: PERRL Musculoskeletal: Flexion and extension of lumbar spine somewhat guarded secondary to pain, deep tendon reflexes normal, strength in upper and lower extremities [5/5], [abnormal gait noted] Neurological: speech clear, business administration program chair equal, no gross sensory deficits Assessment:: Degenerative disc disease lumbar spine with lumbar radiculopathy along with sacroiliitis Plan:: We will follow-up with the patient on an as-needed basis he will call our office if he needs anything. Dr. Santiago has reviewed this note and agrees with this plan of care. This note was dictated using voice recognition software and may contain errors or omissions
--- NOTE | 2018-12-23 11:00 | P.CONS_ITS ---
[facility] Pain Management SOAP Note Subjective:: Patient is a pleasant 73-year-old white male who presents today for follow-up after his left SI joint injection. Patient is doing extremely well. Patient rates his pain a 0 out of 10 patient does not need any more injections at this time. Patient would like to follow-up on an as-needed basis. ROS General: no recent weight change, no fever, no sleep disturbances Respiratory: no cough, no shortness of air, no recurring pulmonary infections Cardiovascular/Peripheral Vascular: No chest pain, No palpitations, no edema, no shortness of breath. Gastrointestinal: no incontinence, normal bowel movements reported Genitourinary: no incontinence Musculoskeletal: Back pain, hip pain at times Psychiatric: normal mood/ affect Neurological: [denies weakness in extremities], [denies balance issues] Objective:: Physical Exam General: Alert and oriented x3, no acute distress, pleasant and cooperative, [on room air] Lungs: Resps E/U, Symmetrical chest expansion, Eyes: PERRL Musculoskeletal: Flexion and extension of lumbar spine somewhat guarded secondary to pain, deep tendon reflexes normal, strength in upper and lower extremities [5/5], [abnormal gait noted] Neurological: speech clear, 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 Dr. Santiago has reviewed this note and agrees with this plan of care. This note was dictated using voice recognition software and may contain errors or omissions
== END ==
PROVIDERS: PCP Family Medicine; Visit Provider Clinical Nurse Specialist Family Health
DX: M51.16 Intervertebral disc disorders with radiculopathy, lumbar region (principal); M46.1 Sacroiliitis, not elsewhere classified
CPT/HCPCS: 99212

== ENCOUNTER → 2019-06-03 09:00 | Outpatient (POV) | payer MEDICARE, OTHER, SELFPAY ==
[2019-06-03 09:11] VITALS: BP 175/77; PULSE 70; RESP 18; O2SAT 98; BMI 41.5
--- NOTE | 2019-06-03 10:06 | HMH.PAINSOAP ---
[facility] Pain Management SOAP Note Subjective:: Patient is an extremely pleasant 73-year-old white male who presents today for follow-up. Patient has had multiple left SI joint injections which he gets about 90% relief for up to 3 months. Patient states that his pain is a 2 out of 10 today and states it slowly returning. He is become much more active at work and is walking most of the day. Patient has lost about 20 pounds and is doing well with this. Patient would like to get an injection before his pain worsens. He does have a positive James's test, Jessica test and SI joint compression test on the left side. He is continuing a home stretching program. He is also on anti-inflammatories. ROS General: no recent weight change, no fever, no sleep disturbances Respiratory: no cough, no shortness of air, no recurring pulmonary infections Cardiovascular/Peripheral Vascular: No chest pain, No palpitations, no edema, no shortness of breath. Gastrointestinal: no new onset incontinence, normal bowel movements reported Genitourinary: no new onset incontinence Musculoskeletal: SI Joint pain Psychiatric: normal mood/ affect, Neurological: [denies new onset weakness in extremities], [denies new onset balance issues] Objective:: Physical Exam General: Alert and oriented x3, no acute distress, pleasant and cooperative, [on room air] Lungs: Resps E/U, Symmetrical chest expansion, Eyes: PERRL Musculoskeletal: Flexion and extension of lumbar spine somewhat guarded secondary to pain, deep tendon reflexes normal, strength in upper and lower extremities [5/5], antalgic gait noted Neurological: speech clear, production line operator equal, no gross sensory deficits Assessment:: Sacroiliitis chronic Plan:: We will set him up for a left SI joint injection. I do believe it would be beneficial given the efficacy of the past. I will follow-up with the patient after his injection reassess his symptoms at that time he is been instructed to call the office if he has any issues prior to his next appointment. Dr. Santiago has reviewed this note and agrees with this plan of care. This note was dictated using voice recognition software and may contain errors or omissions [facility] History I have reviewed the patient's past medical history: Yes Medical History: Reports:: Gastroesophageal Reflux Disease(GERD), Hypertension Denies:: Asthma, Cancer, Chronic Obstructive Pulmonary Disease (COPD), Cerebrovascular Accident, Diabetes Mellitus Type 1, Diabetes Mellitus Type 2, Hyperlipidemia, Kidney Stones, MRSA, Myocardial Infarction, Osteoporosis, Renal Disease, Renal Insufficiency, Seizures *Have you ever received a pneumonia vaccine?: Yes *Have you received a flu vaccine this season?: No Other Medical History: Reports: Arthritis. Denies: Hypothyroidism, Osteoporosis, Thyroid Disease Laterality Cases: Left: Total Hip Replacement Other Surgeries: Yes: No Previous Surgery, Colonoscopy Amputation: No Fractures: No - *Social History Smoking Status: Never smoker Tobacco Type: cigarettes # Packs/Day (cigarettes): 1 #Yrs smoked (if former smoker): 1 Alcohol Intake: never Alcohol Intake Frequency:: other *Occupational Status:: other Housing: house Household Members: spouse *Travel in the last 8 weeks: None Family Hx:: Diabetes, Heart Attack, Stroke, Thyroid Disorder
--- NOTE | 2019-06-03 10:09 | P.CONS_ITS ---
[facility] Pain Management SOAP Note Subjective:: Patient is an extremely pleasant 73-year-old white male who presents today for follow-up. Patient has had multiple left SI joint injections which he gets about 90% relief for up to 3 months. Patient states that his pain is a 2 out of 10 today and states it slowly returning. He is become much more active at work and is walking most of the day. Patient has lost about 20 pounds and is doing well with this. Patient would like to get an injection before his pain worsens. He does have a positive James's test, Jessica test and SI joint compression test on the left side. He is continuing a home stretching program. He is also on anti-inflammatories. ROS General: no recent weight change, no fever, no sleep disturbances Respiratory: no cough, no shortness of air, no recurring pulmonary infections Cardiovascular/Peripheral Vascular: No chest pain, No palpitations, no edema, no shortness of breath. Gastrointestinal: no new onset incontinence, normal bowel movements reported Genitourinary: no new onset incontinence Musculoskeletal: SI Joint pain Psychiatric: normal mood/ affect, Neurological: [denies new onset weakness in extremities], [denies new onset balance issues] Objective:: Physical Exam General: Alert and oriented x3, no acute distress, pleasant and cooperative, [on room air] Lungs: Resps E/U, Symmetrical chest expansion, Eyes: PERRL Musculoskeletal: Flexion and extension of lumbar spine somewhat guarded secondary to pain, deep tendon reflexes normal, strength in upper and lower extremities [5/5], antalgic gait noted Neurological: speech clear, fine grade operator equal, no gross sensory deficits Assessment:: Sacroiliitis chronic Plan:: We will set him up for a left SI joint injection. I do believe it would be beneficial given the efficacy of the past. I will follow-up with the patient after his injection reassess his symptoms at that time he is been instructed to call the office if he has any issues prior to his next appointment. Dr. Santiago has reviewed this note and agrees with this plan of care. This note was dictated using voice recognition software and may contain errors or omissions [facility] History I have reviewed the patient's past medical history: Yes Medical History: Reports:: Gastroesophageal Reflux Disease(GERD), Hypertension Denies:: Asthma, Cancer, Chronic Obstructive Pulmonary Disease (COPD), Cerebrovascular Accident, Diabetes Mellitus Type 1, Diabetes Mellitus Type 2, Hyperlipidemia, Kidney Stones, MRSA, Myocardial Infarction, Osteoporosis, Renal Disease, Renal Insufficiency, Seizures *Have you ever received a pneumonia vaccine?: Yes *Have you received a flu vaccine this season?: No Other Medical History: Reports: Arthritis. Denies: Hypothyroidism, Osteoporosis, Thyroid Disease Laterality Cases: Left: Total Hip Replacement Other Surgeries: Yes: No Previous Surgery, Colonoscopy Amputation: No Fractures: No - *Social History Smoking Status: Never smoker Tobacco Type: cigarettes # Packs/Day (cigarettes): 1 #Yrs smoked (if former smoker): 1 Alcohol Intake: never Alcohol Intake Frequency:: other *Occupational Status:: other Housing: house Household Members: spouse *Travel in the last 8 weeks: None Family Hx:: Diabetes, Heart Attack, Stroke, Thyroid Disorder
== END ==
PROVIDERS: PCP Family Medicine; Visit Provider Clinical Nurse Specialist Family Health
DX: M46.1 Sacroiliitis, not elsewhere classified (principal)
CPT/HCPCS: 99212

== ENCOUNTER → 2019-08-19 09:02 | Outpatient (CLI) | payer MEDICARE, OTHER, SELFPAY ==
--- NOTE | 2019-08-19 09:08 | XR_ITS ---
PROCEDURE: XR KNEE RT 4V CLINICAL INDICATION: right knee pain; four views weightbearing COMPARISON: [id number] XR knee RT 4V from 07/12/2018 FINDINGS: No fracture or dislocation. No lytic or blastic change. There is normal mineralization. There are moderate to severe osteoarthritic changes involving the medial compartment and patellofemoral joint. Mild osteoarthritis is present involving the lateral compartment. Prominent spurring is present at the patella slightly increased compared to the previous exam. IMPRESSION: There are moderate to severe osteoarthritic changes which are slightly worse Dictated by: Aneesh Leavitt MD 08/19/2019 16:09 Electronically signed by Aneesh Leavitt MD in [place] 08/19/2019 16:09
--- NOTE | 2019-08-19 09:08 | XR_ITS ---
PROCEDURE: XR HIP LT 2-3V W/PELVIS CLINICAL INDICATION: sp left total hip arthroplasty follow-up hip replacement COMPARISON: HIPCMRT XR hip RT 2-3V w/pelvis from 08/27/2018 FINDINGS: S/p total hip replacement. No evidence of dislocation or fracture. There remains good alignment. The most inferior acetabular screw extends beyond the inter margin of the cortex of the acetabulum. This is not significantly changed. Small calcific densities are present superior to the left hip in the soft tissues. IMPRESSION: No change good alignment status post left hip replacement Dictated by: Aneesh Leavitt MD 08/19/2019 15:11 Electronically signed by Aneesh Leavitt MD in [place] 08/19/2019 15:11
== END ==
PROVIDERS: PCP Family Medicine; Visit Provider Orthopaedic Surgery
DX: Z96.642 Presence of left artificial hip joint (principal); M17.11 Unilateral primary osteoarthritis, right knee; M25.552 Pain in left hip
CPT/HCPCS: 73502; 73564

== ENCOUNTER → 2020-06-21 12:38 | Outpatient (POV) | payer MEDICARE, OTHER, SELFPAY ==
[2020-06-21 12:46] VITALS: BP 135/88; PULSE 84; RESP 18; TEMP 36.6; O2SAT 98; BMI 43.7
--- NOTE | 2020-06-21 13:08 | P.CONS_ITS ---
[facility] Pain Management SOAP Note Subjective:: Patient is a pleasant 74-year-old white male who presents today for follow-up. Patient was seen last year after an SI joint injection. Patient has had a year relief from his symptomology. Recently has had right SI joint pain and right hip pain patient has begun a new job which is irritated his pain he rates it a 5 out of 10. He has a positive Jessica test Chun's test SI joint compression test on the right side is also extremely tender over the right greater trochanteric bursa. ROS General: no recent weight change, no fever, no sleep disturbances Respiratory: no cough, no shortness of air, no recurring pulmonary infections Cardiovascular/Peripheral Vascular: No chest pain, No palpitations, no edema, no shortness of breath. Gastrointestinal: no new onset incontinence, normal bowel movements reported Genitourinary: no new onset incontinence Musculoskeletal: Right SI joint pain right hip pain Psychiatric: normal mood/ affect Neurological: [denies new onset weakness in extremities], [denies new onset balance issues] Objective:: Physical Exam General: Alert and oriented x3, no acute distress, pleasant and cooperative, [on room air] Lungs: Resps E/U, Symmetrical chest expansion, Eyes: PERRL Musculoskeletal: Flexion and extension of lumbar spine somewhat guarded secondary to pain, deep tendon reflexes normal, strength in upper and lower extremities [5/5], [abnormal gait noted] Neurological: speech clear, electron microprobe operator equal, no gross sensory deficits Assessment:: Sacroiliitis, bursitis Plan:: We will plan a right SI joint injection for the patient right greater trochanteric bursa injection for the patient patient's been instructed to call the office if he has any issues prior to his next appointment. Dr. Santiago has reviewed this note and agrees with this plan of care. This note was dictated using voice recognition software and may contain errors or omissions [facility] History I have reviewed the patient's past medical history: Yes Medical History: Reports:: Anxiety, Chronic Obstructive Pulmonary Disease (COPD), Gastroesophageal Reflux Disease(GERD), Hypertension Denies:: Asthma, Cancer, Cerebrovascular Accident, Diabetes Mellitus Type 1, Diabetes Mellitus Type 2, Hyperlipidemia, Kidney Stones, MRSA, Myocardial Infarction, Osteoporosis, Renal Disease, Renal Insufficiency, Seizures *Have you ever received a pneumonia vaccine?: Yes *Have you received a flu vaccine this season?: Yes Other Medical History: Reports: Arthritis. Denies: Hypothyroidism, Osteoporosis, Thyroid Disease Laterality Cases: Left: Total Hip Replacement Other Surgeries: Yes: No Previous Surgery, Colonoscopy Amputation: No Fractures: No - *Social History Smoking Status: Never smoker Tobacco Type: cigarettes # Packs/Day (cigarettes): 0 #Yrs smoked (if former smoker): 0 Alcohol Intake: never Alcohol Intake Frequency:: other *Occupational Status:: other Housing: house Household Members: spouse *Travel in the last 8 weeks: None - Psychiatric History Pschychiatric History:: Reports:: Anxiety Family Hx:: Diabetes, Heart Attack, Stroke, Thyroid Disorder
== END ==
PROVIDERS: PCP Family Medicine; Visit Provider Clinical Nurse Specialist Family Health
DX: M46.1 Sacroiliitis, not elsewhere classified (principal); M70.61 Trochanteric bursitis, right hip
CPT/HCPCS: 99212

== ENCOUNTER 2020-06-25 07:54 | Day surgery (SDC) | payer MEDICARE, OTHER, SELFPAY ==
[2020-06-25 08:59] VITALS: BP 179/77; PULSE 68; RESP 20; TEMP 36.2; O2SAT 96; BMI 44.1
[2020-06-25 09:18] VITALS: BP 140/74; BP 144/79; PULSE 84; PULSE 89; RESP 18; O2SAT 98
--- NOTE | 2020-06-25 09:23 | P.PCN_ITS ---
- Procedure Date: 06/25/20 Time: 09:23 Anesthesiologist:: Mono Santiago MD Complications:: None Pre-procedure Diagnosis:: Sacroiliitis and trochanteric bursitis Post-procedure Diagnosis:: Same Indications for Procedure:: This patient is a pleasant 74-year-old white male who we are treating for right- sided hip pain. He did well from previous right SI joint injection. He has now started a new job which has reaggravated his pain over his right hip. He is tender over the right SI joint. Is positive Chun's test on the right side. Is positive SI joint compression test on the right side. Is positive Jessica test on the right side. He has a positive distraction test on the right side. We will do a repeat right SI joint injection under fluoroscopy today. He is also tender over his right trochanteric bursa. We will do a right trochanteric bursa injection as well. Procedure Details:: Right SI joint injection under fluoroscopy Informed consent was obtained and the risks and benefits of the procedure was going to the patient. Patient was taken to the procedure room. Patient was placed prone on the procedure table. The right hip was prepped using ChloraPrep. The skin and subcutaneous tissues were anesthetized using lidocaine. I placed a 22-gauge spinal needle into the inferior aspect of the right SI joint. Needle placement was confirmed with dye. After this we injected 5 mL bupivacaine 0.25% and Depo-Medrol 40 mg into the right SI joint. The patient tolerated the procedure well with no complication. Right trochanteric bursa injection under fluoroscopy informed consent was obtained and the risk and benefits of the procedure was explained to the patient. The patient was taken to the procedure room. The right hip was prepped using ChloraPrep. The skin and subcutaneous tissues were anesthetized using lidocaine. I placed a 22-gauge spinal needle and advanced under fluoroscopic guidance until it contacted the right greater trochanter. Needle placement was confirmed with dye. After this I injected bupivacaine 0.25% 5 mL and Depo-Medrol 40 mg into the right trochanteric bursa. Patient tolerated the procedure well with no complications. Plan and Disposition:: We will follow-up with him in 2 weeks. Will reevaluate his symptoms at that time.
[2020-06-25 09:35] VITALS: BP 172/67; PULSE 66; RESP 20; O2SAT 96
== END 2020-06-25 09:35 | disposition home or self-care (01) ==
PROVIDERS: PCP Family Medicine; Visit Provider Anesthesiology
DX: M46.1 Sacroiliitis, not elsewhere classified (principal); M70.61 Trochanteric bursitis, right hip
CPT/HCPCS: 20610; 27096; 77002; G0260; J1030; Q9966

== ENCOUNTER → 2020-07-06 12:36 | Outpatient (CLI) | payer MEDICARE, OTHER, SELFPAY ==
--- NOTE | 2020-07-06 12:45 | XR_ITS ---
PROCEDURE: XR KNEE RT 4V CLINICAL INDICATION: right knee pain COMPARISON: CR [id number] XR knee RT 4V from 07/12/2018 CR XR KNEE RT 4V from 08/19/2019 FINDINGS: There are severe osteoarthritic changes of the medial compartment and patellofemoral joint which may be slightly worse. There is mild lateral translation of the tibia of approximately 5 mm. Moderate osteoarthritic changes are present at the lateral compartment. Severe osteoarthritic changes are present at the patellofemoral joint with osteophyte formation. IMPRESSION: Severe osteoarthritic changes as described above. Dictated by: Aneesh Leavitt MD 07/06/2020 17:12 Aneesh Leavitt MD in [place] 07/06/2020 17:12
== END ==
PROVIDERS: PCP Family Medicine; Visit Provider Orthopaedic Surgery
DX: G89.29 Other chronic pain (principal); M17.11 Unilateral primary osteoarthritis, right knee; M25.561 Pain in right knee
CPT/HCPCS: 73564

== ENCOUNTER → 2020-07-19 08:49 | Outpatient (POV) | payer MEDICARE, OTHER, SELFPAY ==
[2020-07-19 08:58] VITALS: BP 142/74; PULSE 74; RESP 18; TEMP 36.9; O2SAT 98; BMI 43.0
--- NOTE | 2020-07-19 09:21 | HMH.PAINSOAP ---
[facility] Pain Management SOAP Note Subjective:: Patient is a pleasant 74-year-old white male who we are treating for right-sided hip pain. Patient does well with right SI joint injection. He gets 80% relief with these injections. Patient was having relief until just recently. He rates his pain a 7 out of 10. This is due to activity with his job. Patient and I discussed a repeat right SI joint injection he would like to move forward with this. ROS General: no recent weight change, no fever, no sleep disturbances Respiratory: no cough, no shortness of air, no recurring pulmonary infections Cardiovascular/Peripheral Vascular: No chest pain, No palpitations, no edema, no shortness of breath. Gastrointestinal: no new onset incontinence, normal bowel movements reported Genitourinary: no new onset incontinence Musculoskeletal: Right SI joint pain Psychiatric: normal mood/ affect Neurological: [denies new onset weakness in extremities], [denies new onset balance issues] Objective:: Physical Exam General: Alert and oriented x3, no acute distress, pleasant and cooperative, [on room air] Lungs: Resps E/U, Symmetrical chest expansion, Eyes: PERRL Musculoskeletal: Flexion and extension of lumbar spine somewhat guarded secondary to pain, deep tendon reflexes normal, strength in upper and lower extremities [5/5], [abnormal gait noted] positive Jessica test, SI joint compression test, Chun's test positive on the right side Neurological: speech clear, african history professor equal, no gross sensory deficits Assessment:: Sacroiliitis Plan:: We will repeat the patient's right SI joint injection given the efficacy of that in the past. I will follow-up with him after this reassess his symptoms at that time he has been instructed to call the office if he has any issues prior to his next appointment. Dr. Santiago has reviewed this note and agrees with this plan of care. This note was dictated using voice recognition software and may contain errors or omissions [facility] History I have reviewed the patient's past medical history: Yes Medical History: Reports:: Anxiety, Chronic Obstructive Pulmonary Disease (COPD), Gastroesophageal Reflux Disease(GERD), Hypertension Denies:: Asthma, Cancer, Cerebrovascular Accident, Diabetes Mellitus Type 1, Diabetes Mellitus Type 2, Hyperlipidemia, Kidney Stones, MRSA, Myocardial Infarction, Osteoporosis, Renal Disease, Renal Insufficiency, Seizures *Have you ever received a pneumonia vaccine?: Yes *Have you received a flu vaccine this season?: Yes Other Medical History: Reports: Arthritis. Denies: Blood Transfusion Reaction, Hypothyroidism, Osteoporosis, Thyroid Disease Laterality Cases: Left: Total Hip Replacement Other Surgeries: Yes: No Previous Surgery, Colonoscopy, Other Amputation: No Fractures: No - *Social History Smoking Status: Never smoker Tobacco Type: cigarettes # Packs/Day (cigarettes): 0 #Yrs smoked (if former smoker): 0 Alcohol Intake: never Alcohol Intake Frequency:: other *Occupational Status:: other Housing: house Household Members: spouse *Travel in the last 8 weeks: None - Psychiatric History Pschychiatric History:: Reports:: Anxiety Family Hx:: Diabetes, Heart Attack, Stroke, Thyroid Disorder
== END ==
PROVIDERS: PCP Family Medicine; Visit Provider Clinical Nurse Specialist Family Health
DX: M46.1 Sacroiliitis, not elsewhere classified (principal)
CPT/HCPCS: 99212

== ENCOUNTER 2020-07-26 14:22 | Day surgery (SDC) | payer MEDICARE, OTHER, SELFPAY ==
[2020-07-26 14:41] VITALS: BP 180/65; PULSE 85; RESP 18; TEMP 36.6; O2SAT 98; BMI 43.0
[2020-07-26 14:55] VITALS: BP 145/74; PULSE 74; RESP 18
[2020-07-26 14:56] VITALS: BP 128/88; PULSE 79; RESP 18; O2SAT 98
--- NOTE | 2020-07-26 14:58 | HMH.PMPROC ---
- Procedure Date: 07/26/20 Time: 14:58 Anesthesiologist:: Susan Martínez APRN Complications:: None Pre-procedure Diagnosis:: Sacroiliitis Post-procedure Diagnosis:: Same Indications for Procedure:: Patient is pleasant 74-year-old white male who presents today for right SI joint injection. He gets up to 80% relief with these injections. Patient has started a new position in his job that is much easier on him physically. Patient has a positive Chun's test SI joint compression test and Jessica test on the right side. Procedure Details:: Informed consent was obtained and the risks and benefits of the procedure were explained to the patient. Patient was taken to the procedure room. Patient was placed prone on the procedure table. The [right] hip was prepped using ChloraPrep as a cleansing solution. The skin and subcutaneous tissues were anesthetized using lidocaine. Using fluoroscopic guidance I placed a 22-gauge spinal needle into the inferior aspect of the [right] SI joint. After this I injected 5 mL bupivacaine 0.25% and Depo-Medrol 40 mg into the [right] SI joint. The patient tolerated the procedure well with no complication. Plan and Disposition:: We will follow up with the patient several weeks reassess his symptoms at that time he has been instructed to call the office if he has any issues prior to his next appointment. Dr. Santiago has reviewed this note and agrees with this plan of care. This note was dictated using voice recognition software and may contain errors or omissions
[2020-07-26 15:14] VITALS: BP 178/81; PULSE 80; RESP 18; O2SAT 98
== END 2020-07-26 15:15 | disposition home or self-care (01) ==
LOC: SC.PAINP 14:24
PROVIDERS: PCP Family Medicine; Visit Provider Clinical Nurse Specialist Family Health
DX: M46.1 Sacroiliitis, not elsewhere classified (principal)
CPT/HCPCS: 27096; G0260; J1040; Q9966

== ENCOUNTER → 2020-10-28 08:34 | Outpatient (POV) | payer MEDICARE, SELFPAY ==
--- NOTE | 2020-10-28 09:05 | HMH.PAINSOAP ---
[facility] Pain Management SOAP Note Subjective:: Patient is a pleasant 74-year-old white male who presents today for up. Patient had a right SI joint injection back in July he was doing extremely well until just recently. He rates his pain a 4-10 mostly on the right side. He would like to repeat his SI joint injection he gets 80% relief up to 3 months. Patient has a positive Jessica test sign SI joint compression test Chun's test and distraction test on the right side. We also briefly talked about orthopedic consultation in regard to potential hip issues. ROS General: no recent weight change, no fever, no sleep disturbances Respiratory: no cough, no shortness of air, no recurring pulmonary infections Cardiovascular/Peripheral Vascular: No chest pain, No palpitations, no edema, no shortness of breath. Gastrointestinal: no new onset incontinence, normal bowel movements reported Genitourinary: no new onset incontinence Musculoskeletal: Right hip pain right SI joint pain Psychiatric: normal mood/ affect Neurological: [denies new onset weakness in extremities], [denies new onset balance issues] Objective:: Physical Exam General: Alert and oriented x3, no acute distress, pleasant and cooperative, [on room air] Lungs: Resps E/U, Symmetrical chest expansion, Eyes: PERRL Musculoskeletal: Flexion and extension of lumbar spine somewhat guarded secondary to pain, deep tendon reflexes normal, strength in upper and lower extremities [5/5], [abnormal gait noted] Neurological: speech clear, sport intern equal, no gross sensory deficits Assessment:: Sacroiliitis, right hip pain Plan:: We will schedule the patient for right SI joint injection. I will follow-up with him after this reassess his symptoms at that time. Patient's been instructed to call the office if he has any issues prior to his next appointment. Dr. Santiago has reviewed this note and agrees with this plan of care. This note was dictated using voice recognition software and may contain errors or omissions [facility] History I have reviewed the patient's past medical history: Yes Medical History: Reports:: Anxiety, Chronic Obstructive Pulmonary Disease (COPD), Gastroesophageal Reflux Disease(GERD), Hypertension Denies:: Asthma, Cancer, Cerebrovascular Accident, Diabetes Mellitus Type 1, Diabetes Mellitus Type 2, Hyperlipidemia, Kidney Stones, MRSA, Myocardial Infarction, Osteoporosis, Renal Disease, Renal Insufficiency, Seizures *Have you ever received a pneumonia vaccine?: No *Have you received a flu vaccine this season?: No Other Medical History: Reports: Arthritis. Denies: Blood Transfusion Reaction, Hypothyroidism, Osteoporosis, Thyroid Disease Laterality Cases: Left: Total Hip Replacement Other Surgeries: Yes: No Previous Surgery, Colonoscopy, Other (steel cut out of knee) Amputation: No Fractures: No - *Social History Smoking Status: Never smoker Tobacco Type: cigarettes # Packs/Day (cigarettes): 0 #Yrs smoked (if former smoker): 0 Alcohol Intake: never Alcohol Intake Frequency:: other *Occupational Status:: employed Housing: house Household Members: spouse *Travel in the last 8 weeks: None - Psychiatric History Pschychiatric History:: Reports:: Anxiety Family Hx:: Diabetes, Heart Attack, Stroke, Thyroid Disorder
[2020-10-28 09:07] VITALS: BP 163/85; PULSE 105; RESP 18; O2SAT 99; BMI 40.1
== END ==
PROVIDERS: PCP Family Medicine; Visit Provider Clinical Nurse Specialist Family Health
DX: M46.1 Sacroiliitis, not elsewhere classified (principal); M25.551 Pain in right hip
CPT/HCPCS: 99212; G0463

== ENCOUNTER 2020-11-05 13:52 | Day surgery (SDC) | payer MEDICARE, OTHER, SELFPAY ==
[2020-11-05 14:10] VITALS: BP 171/82; PULSE 79; RESP 18; TEMP 36.1; O2SAT 95; BMI 40.1
--- NOTE | 2020-11-05 14:28 | P.PCN_ITS ---
- Procedure Date: 11/05/20 Time: 14:28 Anesthesiologist:: Mono Santiago MD Complications:: None Pre-procedure Diagnosis:: Sacroiliitis Post-procedure Diagnosis:: Same Indications for Procedure:: This patient is a pleasant 74-year-old white male who we are treating for right- sided hip pain. He is tender over his right SI joint. He is positive Chun's test on the right side. He has a positive Jessica test on the right side. He has positive SI joint compression test on the right side. He has a positive distraction test on the right side. We will do a right SI joint injection under fluoroscopy today to help him with his pain symptoms. Procedure Details:: Right SI joint injection under fluoroscopy Informed consent was obtained and the risks and benefits of the procedure was going to the patient. Patient was taken to the procedure room. Patient was placed prone on the procedure table. The right hip was prepped using ChloraPrep. The skin and subcutaneous tissues were anesthetized using lidocaine. I placed a 22-gauge spinal needle into the inferior aspect of the right SI joint. Needle placement was confirmed with dye. After this we injecte d 5 mL bupivacaine 0.25% and Depo-Medrol 40 mg into the right SI joint. The patient tolerated the procedure well with no complication. Plan and Disposition:: We will follow-up with him in 2 weeks. Will reevaluate symptoms at that time.
[2020-11-05 14:30] VITALS: BP 141/74; PULSE 85; RESP 18; O2SAT 98
[2020-11-05 14:31] VITALS: BP 142/89; PULSE 85; RESP 18; O2SAT 98
[2020-11-05 14:47] VITALS: BP 163/95; PULSE 76; RESP 18; O2SAT 95
== END 2020-11-05 14:48 | disposition home or self-care (01) ==
LOC: SC.PAINP 14:09
PROVIDERS: PCP Family Medicine; Visit Provider Anesthesiology
DX: M46.1 Sacroiliitis, not elsewhere classified (principal); J44.9 Chronic obstructive pulmonary disease, unspecified; K21.9 Gastro-esophageal reflux disease without esophagitis; I10 Essential (primary) hypertension
CPT/HCPCS: 27096; G0260; J1040; Q9966

== ENCOUNTER → 2020-11-16 13:54 | Outpatient (CLI) | payer MEDICARE, OTHER, SELFPAY ==
--- NOTE | 2020-11-16 13:59 | XR_ITS ---
PROCEDURE: XR HIP RT 2-3V W/PELVIS CLINICAL INDICATION: RT HIP PAIN COMPARISON: CR [id number] HIP LT 2-3V W/PELVIS IF PERFOR from 09/28/2016 CR HIPCMRT XR hip RT 2-3V w/pelvis from 08/27/2018 CR XR HIP LT 2-3V W/PELVIS from 08/19/2019 FINDINGS: There has been cortical collapse of the superior articular surface of the right femoral head with impaction. This has developed since the previous exam. There is a zone sclerosis involving the mid aspect of the right femoral head concave in nature with a faint zone of lucency just superior to this and then a zone of sclerosis along the articular surface. These findings are consistent with avascular necrosis. A CAM deformity of the femur has developed laterally at the femoral head neck junction with the acetabulum. This likely results in femoral acetabular impingement as well. There is mild lateral subluxation of the femur. There is generalized vascular calcification and degenerative changes in the lower lumbar spine. Total left hip prosthesis is present. 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
== END ==
PROVIDERS: PCP Family Medicine; Visit Provider Family Medicine
DX: M25.551 Pain in right hip (principal)
CPT/HCPCS: 73502

== ENCOUNTER → 2021-02-14 12:24 | Outpatient (CLI) | payer MEDICARE, OTHER, SELFPAY ==
--- NOTE | 2021-02-14 12:51 | CA_ITS ---
APPROVED REPORT EXAM: Comprehensive 2D, Doppler, and color-flow Echocardiogram Floral Associate: Nayeli Peterson CRT Ht: 5 ft 10 in Wt: 300lbs BSA: 2.48 BP: 185/86 mmHg Indications: COPD, Peripheral Edema, Hypertension/HDD, GERD 2D Dimensions LVOT 2.05 cm (M/F) 1.5-2.5 LA Volume 25.10 mL LA Volume Index 10.10 mL/m2 (M/F) 16-34 M-Mode Dimensions RVDd 2.93 cm (0.9-2.6) LA Diam 4.34 cm (1.9-4.0) LVDd 5.79 cm (3.5-5.7) Ao Diam 3.77 cm (2.0-3.7) LVDs 3.74 cm (3.5-5.7) IVSd 1.41 cm (0.6-1.1) PWd 0.76 cm (0.6-1.1) EF (Teich) 64.10% FS 35.40% EDV (Teich) 165.90 mL TAPSE 2.71 (<1.7) ESV (Teich) 59.60 mL LV Diastology E Decel Time 277.00 (160-240 msec) E/A Ratio 0.79 MED E' 4.60 (< 7 cm/sec) MED A' 11.60 cm/s E'/MED E' Ratio 15.96 (>14) LAT E' 7.00 (<10 cm/sec) LAT A' 15.80 cm/s E/LAT E' Ratio 10.49 (>14) Aortic Valve LVOT Max 151.00 (70-110 cm/s) LVOT VTI 29.17 cm AoV Peak Jorje. 179.00 (50-130 cm/s) AO Peak GR. 12.90 mmHg AO Mean GR. 6.90 (<5 mmHg) AO VTI 34.49 (18-25 cm) JULIO C (VTI) 2.79 (2.5-4.5 cm2) Mitral Valve MV A Velocity 92.00 (40-130 cm/s) E/A Ratio 0.79 MV Decel. Time 277.00 (160-240 ms) Pulmonary Valve PV Peak Velocity 120.00 (50-150 cm/s) Tricuspid Valve TR P. Velocity 176.00 cm/s RAP Estimate 10.00 mmHg RVSP 22.40 mmHg Left Ventricle Left atrium is mildly enlarged, left ventricle is normal size, mild concentric left ventricular hypertrophy, visually estimated ejection fraction 55% with no regional wall motion abnormality, grade 1 diastolic dysfunction seen without tissue Doppler evidence of raise left atrial pressure. Right Ventricle Right atrium and right ventricle are mildly enlarged with normal contractility. Aortic Valve Aortic valve is minimally thickened and fibrosed, there is no aortic stenosis or aortic insufficiency. Mitral Valve Mitral valve leaflets are minimally thickened, there is mild mitral regurgitation. Tricuspid Valve Tricuspid valve grossly normal, there is mild tricuspid regurgitation. Tricuspid regurgitation jet velocity is inadequate for calculation of the right ventricular systolic pressure. Pulmonic Valve Pulmonic valve is poorly visualized. Great Vessels Aortic root is normal size. Pericardium No significant pericardial effusion noted. Conclusion 1. Mild biatrial enlargement, normal left ventricular size, mild concentric left ventricular hypertrophy, visually estimated ejection fraction 55% with no regional wall motion abnormality, grade 1 diastolic dysfunction seen without tissue Doppler evidence of raise left atrial pressure. 2. Mildly enlarged right ventricle with normal contractility. 3. Mild mitral and tricuspid regurgitation. 4. No significant pericardial effusion noted. Electronically signed by : Tom Mcqueen, 02/14/2021 23:17:06
== END ==
PROVIDERS: PCP Family Medicine; Visit Provider Family Medicine
DX: R06.09 Other forms of dyspnea (principal); R60.1 Generalized edema; I10 Essential (primary) hypertension
CPT/HCPCS: 93306

== ENCOUNTER → 2021-03-09 14:39 | Outpatient (CLI) | payer MEDICARE, OTHER, SELFPAY ==
[2021-03-09 14:42] LABS: Microscopic, Urine URINE MICROSCOPIC (MICROSCOPIC)
--- NOTE | 2021-03-09 14:53 | XR_ITS ---
PROCEDURE: XR HIP RT 2-3V W/PELVIS CLINICAL INDICATION: right hip pain COMPARISON: No exams were available for comparison FINDINGS: Once again there is noted cortical collapse and depression deformity of the femoral head on the right with increasing subchondral cystic changes of the acetabulum and the collapse femoral head. There is resultant CAM deformity of the femoral head/neck junction. There is superior location of the femoral head within the hip joint. There has been total left hip prosthesis placed as previously described. IMPRESSION: Cortical collapse with compression deformity of the right femoral head with increasing subchondral cystic changes of the acetabular roof and femoral head. No change CAM deformity of the femoral head/neck junction laterally on the right. Dictated by: Aneesh Leavitt MD 03/09/2021 15:20 Aneesh Leavitt MD in [place] 03/09/2021 15:20
[2021-03-09 15:15] LABS: Appearance,Urine SL CLOUDY (Clear); Bilirubin,Urine Negative (Negative); Blood, Urine Negative (Negative); Color,Urine AMBER (Yellow); Glucose,Urine (UA) Negative (Negative); Ketones,Urine Negative (Negative); Leukocyte Esterase,Urine Negative (Negative); Nitrate,Urine Negative (Negative); Protein,Urine Negative (Negative); Specific Gravity, Urine >= 1.030 (1.005-1.030); Urobilinogen,Urine 0.2 EU/dl (0.2)
[2021-03-09 15:43] LABS: Bacteria,Urine Trace /lpf; Uric Acid Crystals,Urine Trace /lpf
== END ==
PROVIDERS: Visit Provider Orthopaedic Surgery
DX: Z01.818 Encounter for other preprocedural examination (principal); M25.551 Pain in right hip
CPT/HCPCS: 73502; 81001

== ENCOUNTER → 2021-03-10 14:38 | Outpatient (CLI) | payer MEDICARE, OTHER, SELFPAY ==
--- NOTE | 2021-03-10 14:38 | CT_ITS ---
PROCEDURE: CT HIP RT WO CON CLINICAL HISTORY: Pre-op rt hip ADRIAN Rt hip pain COMPARISON: CR XR HIP RT 2-3V W/PELVIS from 03/09/2021 TECHNIQUE: Axial images obtained with sagittal and coronal reformats. All CT scans at the facility use one or more dose reduction, viz: automated exposure control, ma/kV adjustment per patient size (including targeted exams where dose is matched to indication, i.e. head), or iterative reconstruction technique. FINDINGS: Dysplastic changes are present involving the right femoral head with flattening of the femoral head. Subchondral osteolysis is present involving the femoral head with lytic defect of the femoral head measuring 2 cm with some subchondral bone fragment. There is severe narrowing of the hip joint space with lack of significant osteophytes. Subchondral osteolysis also noted involving the acetabular roof. The largest area of lysis extends to the medial cortex of the ileum with discontinuity of the cortex consistent with a nondisplaced fracture. The flattening of the femoral head resultant a CAM deformity at the femoral acetabular junction. Hip joint effusion is noted. There is mild lateral displacement of the femur. 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 There is deformity of the femoral head with flattening of the femoral head with subchondral cystic changes Dictated by: Aneesh Leavitt MD 03/11/2021 09:01 Aneesh Leavitt MD in [place] 03/11/2021 09:01
== END ==
PROVIDERS: PCP Family Medicine; Visit Provider Orthopaedic Surgery
DX: M25.551 Pain in right hip (principal)
CPT/HCPCS: 73700

== ENCOUNTER → 2021-03-11 12:08 | Outpatient (CLI) | payer MEDICARE, OTHER, SELFPAY | PROVIDERS: Visit Provider Orthopaedic Surgery | DX: Z01.812 Encounter for preprocedural laboratory examination (principal); Z20.822 Contact with and (suspected) exposure to COVID-19; M25.552 Pain in left hip | CPT/HCPCS: U0003 ==

== ENCOUNTER 2021-03-14 14:13 | Observation (INO) | payer MEDICARE, OTHER, SELFPAY ==
[2021-03-11 14:48] VITALS: BMI 41.8
[2021-03-14] VITALS (22 sets, daily range): BP systolic 112–185; BP diastolic 52–89; PULSE 59–100; RESP 12–20; TEMP 36.2–43; O2SAT 94–99; BMI 41.8
--- NOTE | 2021-03-14 09:54 | HMH.ANESCL ---
[facility] Anesthesia Checklist - Structural Data Admitted From: Home Planned Operative Procedure/s: r total hip Consent for Planned Operative Procedure(s) Verified: Yes - Additional verifications Anesthesia Reactions: No Hx Blood Transfusions: No Blood Transfusion Reaction: No - Airway Assessment C-Spine Mobility Assessed: Yes TMJ Mobility Assessed: Yes Dentition: Edentulous - Neurological Assessment Level of Consciousness: Awake, Alert, Appropriate - Anesthesia Plan Anesthesia Risk discussed: Yes Anesthesia Plan: Verified ASA Class: III Anesthesia Type: General - Preoperative Comments Pre-Operative Comments: ga and sab expl to pt incl risks. pt wants ga [facility] History I have reviewed the patient's past medical history: Yes Medical History: Reports:: Anxiety, Chronic Obstructive Pulmonary Disease (COPD), Gastroesophageal Reflux Disease(GERD), Hypertension Denies:: Asthma, Cancer, Cerebrovascular Accident, Diabetes Mellitus Type 1, Diabetes Mellitus Type 2, Hyperlipidemia, Kidney Stones, MRSA, Myocardial Infarction, Osteoporosis, Renal Disease, Renal Insufficiency, Seizures *Have you ever received a pneumonia vaccine?: No *Have you received a flu vaccine this season?: No Other Medical History: Reports: Arthritis. Denies: Blood Transfusion Reaction, Hypothyroidism, Osteoporosis, Thyroid Disease Anesthesia experience/problems:: none Laterality Cases: Left: Total Hip Replacement Other Surgeries: Yes: No Previous Surgery, Colonoscopy, Other Amputation: No Fractures: No - *Social History Last grade of school completed: High school graduate Smoking Status: Never smoker Tobacco Type: cigarettes # Packs/Day (cigarettes): 0 #Yrs smoked (if former smoker): 0 Alcohol Intake: never Alcohol Intake Frequency:: other Substance Use Type: denies use *Occupational Status:: retired Housing: house Household Members: spouse *Travel in the last 8 weeks: None - Psychiatric History Pschychiatric History:: Reports:: Anxiety Family Hx:: Diabetes, Heart Attack, Stroke, Thyroid Disorder
--- NOTE | 2021-03-14 10:23 | SUR.OPER ---
1023- family updated of pt's current status via malu rn
--- NOTE | 2021-03-14 12:03 | SUR.OPER ---
1206-mtim irrigated for 3 minutes with betadine irrigation.
--- NOTE | 2021-03-14 12:18 | SUR.OPER ---
1218- family updated of pt's current status via malu rn
--- NOTE | 2021-03-14 13:33 | P.PN_ITS ---
[facility] Anesthesia Record Part I Intake, IV Amount: 2,800 Estimated blood loss (mL): 500 Urine output (mL): 120 Blood Pressure: 118/70 SaO2: 95 Pulse Rate: 64 Respiratory Rate: 12 Temperature: 97.8 F Patient is:: Drowsy, Stable Stable to PACU at:: 13:30
[2021-03-14 13:35] LABS: Microscopic,Cath URINE MICROSCOPIC (MICROSCOPIC)
--- NOTE | 2021-03-14 13:35 | XR_ITS ---
PROCEDURE: XR HIP RT 2-3V W/PELVIS CLINICAL INDICATION: Post Right hip arthroplasty COMPARISON: CR XR HIP RT 2-3V W/PELVIS from 03/09/2021 FINDINGS: Status post total right hip arthroplasty with good alignment. Postsurgical gas and drain is noted. No acute fracture apparent. Antibiotic beads are present. IMPRESSION: Good alignment status post total right hip arthroplasty Dictated by: Aneesh Leavitt MD 03/14/2021 14:48 Aneesh Leavitt MD in [place] 03/14/2021 14:48
[2021-03-14 13:38] LABS: Appearance,Urine/Cath CLEAR (Clear); Bilirubin,Cath Negative (Negative); Blood, Urine/Cath Negative (Negative); Color,Urine/Cath DK YELLOW (Yellow); Glucose,Urine/Cath (UA) Negative (Negative); Ketones,Urine/Cath TRACE (Negative); Leukocyte Esterase,Cath Negative (Negative); Nitrate,Cath Negative (Negative); PH,Urine/Cath 5.5 (5.0-8.5); Protein,Urine/Cath TRACE (Negative); Specific Gravity, Urine/Cath >= 1.030 (1.005-1.030); Urobilinogen,Cath 0.2 EU/dl (0.2)
[2021-03-14 13:57] LABS: CA Oxalate Crystals,Ur/Cath 1+ /lpf
--- NOTE | 2021-03-14 14:23 | SUR.OPER ---
1322- after procedure pt noted to have every small scab area on right outer thigh where hip retractor was located during procedure. MD aware, dermabond, xeroform, 4x4 and tape dressing applied to area.
--- NOTE | 2021-03-14 14:29 | HMH.PHAINT ---
MEDICATION RECONCILIATION COMPLETED ON PATIENT USING EXTERNAL FILL HISTORY FROM PHARMACY. -MARGIE JIN, CHANDUD
--- NOTE | 2021-03-14 14:36 | HMH.ORTHHP ---
*Admission Date: 03/14/21 *Reason for consult:: S/p total hip arthroplasty, right hip *History of present illness: Patient is a 75-year-old male with advanced degenerative arthritis of the right hip unresponsive to conservative management. He is admitted to hospital following a difficult but uncomplicated primary right total hip arthroplasty today. He had right hip pain for couple of years which is gradually gotten worse with more rapid deterioration over the last few months. He localizes the pain to anterior and lateral aspect of the right hip with radiation into the thigh and knee joint. He previously had a successful left total hip arthroplasty about 3 and half years ago. He is walking distance has progressively decreased and he is more or less dependent on a walker. He states walking, twisting, turning and standing for long periods aggravates his pain. He reports night pain and sleep disturbance. He also reports difficulty with activities of daily living. He says the right hip tends to out frequently and is at risk of falls and injuring himself. He says he can barely walk a few feet without discomfort. No history of any previous right hip surgery. No history of any neurological deficits distally. A right total hip arthroplasty is indicated to reduce the risk of falls, improve the pain, mobility and quality of life. The surgical and nonsurgical alternatives were discussed in detail with the patient as well as the risks and benefits of the surgery. His medical history includes hypertension, hyperlipidemia and arthirits. He lives with his . Please refer to my office note for full details. [facility] History I have reviewed the patient's past medical history: Yes Medical History: Reports:: Anxiety, Chronic Obstructive Pulmonary Disease (COPD), Gastroesophageal Reflux Disease(GERD), Hypertension Denies:: Asthma, Cancer, Cerebrovascular Accident, Diabetes Mellitus Type 1, Diabetes Mellitus Type 2, Hyperlipidemia, Kidney Stones, MRSA, Myocardial Infarction, Osteoporosis, Renal Disease, Renal Insufficiency, Seizures *Have you ever received a pneumonia vaccine?: No *Have you received a flu vaccine this season?: No Other Medical History: Reports: Arthritis. Denies: Blood Transfusion Reaction, Hypothyroidism, Osteoporosis, Thyroid Disease Anesthesia experience/problems:: none Laterality Cases: Left: Total Hip Replacement Other Surgeries: Yes: No Previous Surgery, Colonoscopy, Other Amputation: No Fractures: No - *Social History Last grade of school completed: High school graduate Smoking Status: Never smoker Tobacco Type: cigarettes # Packs/Day (cigarettes): 0 #Yrs smoked (if former smoker): 0 Alcohol Intake: never Alcohol Intake Frequency:: other Substance Use Type: denies use *Occupational Status:: retired Housing: house Household Members: spouse *Travel in the last 8 weeks: None - Psychiatric History Pschychiatric History:: Reports:: Anxiety Family Hx:: Diabetes, Heart Attack, Stroke, Thyroid Disorder Review of Systems - Review of Systems Review of systems:: pertinent systems reviewed and negative unless documented below - Constitutional Denies chills, Denies fever(s) - Eyes Denies change in vision - ENT Denies abnormal hearing, Denies change in voice - *Cardiovascular Denies chest pain, Denies shortness of breath - *Respiratory Denies chest congestion, Denies cough - *Gastrointestinal Denies abdominal pain, Denies change in bowel habits - *Musculoskeletal Reports abnormal walking, Reports joint pain, Reports limited joint movement - *Neurologic Reports abnormal walking, Denies seizure-like activity, Denies dizziness, Denies tingling/numbness/burning sensations - Endocrine Denies cold intolerance, Denies heat intolerance - Hematologic/Lymphatic Denies easy bleeding, Denies easy bruising Meds Home Medications Medication Instructions Recorded Confirmed Type Amlodipine Besylate [Amlodipine 10 mg PO DAILY
--- NOTE | 2021-03-14 14:37 | HMH.OPNOTE ---
Date of procedure: 03/14/21 Pre-op Diagnosis:: 1. Advanced degenerative arthritis, right hip 2. Morbid obesity Post-op Diagnosis:: Same Procedure performed:: Uncemented total hip arthroplasty, right hip Surgeon:: Samm Smith MD Forging Press Setter Up(s):: 1. Felicity Ruiz 2. summer ASSISTED LIVING HOME DIRECTOR:: Gama Mariscal Anesthesia: GETA Estimated blood loss (mL): 500 Clinical Note:: Patient is a 75-year-old male with end-stage osteoarthritis of the right hip unresponsive to conservative management. The arthritis is causing severe pain and significant disability and has not responded well to conservative management. His mobility, ability to work, and quality of life is severely impacted. The pain is also affecting his lifestyle, activities of daily living and significantly impacting his sleep. Also he is at a high risk of falls from the arthritis. Therefore a total hip arthroplasty is indicated to relieve pain and to reduce the disability and risk of falls. Patient previously had a left total hip arthroplasty with good results. Please refer to my office note for full details. Operative findings:: Preoperative examination and x-ray findings were consistent with the above diagnosis. Intraoperatively, end-stage osteoarthritis of the hip joint is noted. The femoral head was grossly arthritic and misshapen and osteophytes were noted on both the acetabular and the femoral side. The acetabular side also was grossly arthritic with thinning and small defect in the anterior wall. The capsule/soft tissues are contracted and very tight. The capsule was thickened and range of motion was markedly decreased. Overall bone quality is good. On the whole it was a difficult and complex procedure given the patient's size, degree of arthritis and stiffness of the hip joint. Operative note:: On the day of the procedure, the patient and his were met in the preoperative area and the patient was positively identified. A physical examination was performed and documented. The operative site was appropriately marked and initialed by me. I again reviewed the diagnosis, natural history and management options in detail including both nonsurgical and surgical. We discussed the proposed surgery, risks and benefits and alternatives in detail. The complications discussed include but are not limited to infection, bleeding, injury to nerves, blood vessels and tendons, DVT and PE, fracture, limb length inequality, dislocation, implant malpositioning, implant failure, squeaking, loosening, acetabular wear, osteolysis, periprosthetic femur fracture, heterotopic ossification, abductor weakness and limp, incomplete relief of pain, incomplete recovery of function, chronic pain, likely need for further surgery in future including revision, anesthetic complications including heart attack, stroke and even . We also discussed the postoperative recovery and rehabilitation. Patient verbalized a good understanding and wished to proceed with the proposed surgery. Patient understood the risks, agreed to proceed with surgery and no guarantees or assurances were given or implied. The patient was brought to the operating room and a spinal anesthesia was administered by the adobe layer helper. The patient was then positioned in the left lateral decubitus position with the right hip facing up. We used [employer] hip positioner for this. All the bony prominences were appropriately padded. The right hip was then prepped with isopropyl alcohol followed by chlorhexidine and draped in the usual sterile fashion. The entire operative team wore isolation suits and the Operating Room traffic was controlled. The skin incision was marked for a posterior approach to the hip joint. The perineum and the operative site were sealed off with Ioban drape. A preprocedure timeout was performed as per hospital protocol identifying the patient, correct surgery and correct site. Administration of prophylactic antibiotics (IV Ancef and vancomycin) was confirm
--- NOTE | 2021-03-14 14:55 | HMH.PHACONS ---
- Pharmacy Consult Date: 03/14/21 Time: 14:55 Referring provider: DR. DORMAN Reason for Consult:: VANCOMYCIN DOSING Allergies and ADEs:: Allergies Allergy/AdvReac Type Severity Reaction Status Date / Time No Known Allergies Allergy Verified 03/09/21 13:33 Home Medications:: Home Medications Medication Instructions Recorded Confirmed Type Amlodipine Besylate [Amlodipine 10 mg PO DAILY 08/06/17 03/14/21 History 10mg Tab] diclofenac sodium 75 mg 75 mg PO BID 09/05/17 03/14/21 History tablet,delayed release glucosamine sulfate 1,000 mg 1,000 mg PO BID 08/27/18 03/14/21 History capsule ibuprofen 200 mg tablet 200 mg PO Q4-6H PRN 08/27/18 03/14/21 History cyclobenzaprine 10 mg tablet 10 mg PO DAILYP PRN tab 09/02/19 03/14/21 History tramadol 50 mg tablet 50 mg PO Q6HP PRN 03/09/21 03/14/21 History Acetaminophen 1,000 mg PO TID 03/11/21 03/14/21 History lisinopriL [Zestril 5mg 5 mg PO DAILY 03/14/21 03/14/21 History Tablet] Height: 1.78 m Weight: 132.449 kg Laboratory Results:: Laboratory Results - last 24 hr 03/14/21 06:29: Blood Type O Positive, Antibody Screen Negative 03/14/21 08:00: Urine Color Dk yellow, Urine Appearance Clear, Urine pH 5.5, Ur Specific [place] >= 1.030, Urine Protein Trace, Urine Glucose (UA) Negative, Urine Ketones Trace, Urine Blood Negative, Urine Nitrate Negative, Urine Bilirubin Negative, Urine Urobilinogen 0.2, Ur Leukocyte Esterase Negative, Urine RBC None, Urine WBC 3-5, Ur Squamous Epith Cells 3-5, Calcium Oxalate Crystal 1+, Urine Bacteria None Medical History: Reports:: Anxiety, Chronic Obstructive Pulmonary Disease (COPD), Gastroesophageal Reflux Disease(GERD), Hypertension Denies:: Asthma, Cancer, Cerebrovascular Accident, Diabetes Mellitus Type 1, Diabetes Mellitus Type 2, Hyperlipidemia, Kidney Stones, MRSA, Myocardial Infarction, Osteoporosis, Renal Disease, Renal Insufficiency, Seizures Assessment and Plan - Assessment and plan all Dx Assessment and Plan for all problems:: Age: 75 yo Serum creatinine: 1 mg/dL Height: 70.0 Inches Weight (kg): 132.5 Assessment: IBW (kg): 73.00 Dosing wt(kg): 132.5 Estimated Creatinine clearance (ml/min): 66.9 CRCL method: Cockcroft and Gault using ibw(default). Drug selected: Vancomycin Loading dose (mg): 0 Vd (liters): 106.0 (factor used: 0.8 L/kg) Mor (hr-1): 0.060 Half life (hrs): 11.55 Recommended dose: 2500 mg Interval: 18 hrs Infusion time (hrs): 2.0 Predicted peak (mcg/mL): 33.7 Predicted trough (mcg/mL): 12.90 Total body weight is being used for vancomycin dosing. Recommendations: Give Vancomycin 2500 mg q 18 hrs with an expected Cpeak of 33.7 mcg/ml and an expected Ctrough of 12.90 mcg/ml ----Vanco only - ignore for aminoglycosides----- CLvanco= 6.36 L/hr AUC 0-24 /BRIDGER Data: BRIDGER 0.5 mcg/mL: AUC/BRIDGER: 1048.2 BRIDGER 1.0 mcg/mL: AUC/BRIDGER: 524.1 --------- BRIDGER 1.5 mcg/mL: AUC/BRIDGER: 349.4 BRIDGER 2.0 mcg/mL: AUC/BRIDGER: 262.1 Thank you for the consult, will continue to follow.
[2021-03-14 15:33] LABS: Chloride 111 mmol/L (98-107)
[2021-03-14 15:34] LABS: Potassium 4.7 mmoL/L (3.5-5.1); Sodium 140 mmol/L (136-145)
--- NOTE | 2021-03-14 15:35 | HMH.PTEV ---
Physical Therapy Evaluation Rehab PT IP Evaluation Start: 03/14/21 14:22 Freq: ONCE Status: Active Protocol: Document 03/14/21 15:29 ABIEL (Rec: 03/14/21 15:35 ABIEL [id number]) Subjective/History History History Patient was admitted to [facility] 03/14/21 for post-surgical care S/ P R ADRIAN. Patient reports chronic R hip pain for approximately 10 months prior to surgery. Patient lives at home with his , and has required a RW for the past 6 months. Subjective Subjective I'm a little dizzy and really cold. Rehab PT IP Eval Objective Appearance Patient Behavior Appropriate,Cooperative Speech Pattern Clear Ambulation Patient Able to Ambulate Yes Ambulation Observation IP General Gait Pattern Observation Antalgic Gait,Decrease Weight Bear (R) Ambulation Distance (feet) 10 Ambulation Assistive Device Rolling Walker Ambulation Ability Contact Guard/Hand Hold Balance Ability to Arise Able, uses arms to help Sitting Balance Steady, safe Standing Balance Steady, wide stance Dynamic Sitting Balance Ability Normal Dynamic Standing Balance Ability Good Transfers Bed Transfer Ability Minimal x 2 (25% assist) Sit to Stand Bed Transfer Ability Contact Guard/Hand Hold Sit to Stand Chair Transfer Ability Contact Guard/Hand Hold ROM RUE PT ROM Status WFL MMT All Extremities PT MMT WFL Rehab PT IP prob,goals,plan Problems Date of Evaluation: 03/14/21 PT IP Problems Bed Mobility,Transfers,Gait, Balance,Self care,Safety Rehab Potential Rehab Potential Good Equipment Needs Assistive Devices Rolling / Wheeled Walker Plan PT Intervention Plan Bed Mobility,Transfers,Gait, Balance,Self care,Safety, Therapeutic Exercise PT Plan Frequency BID Duration LOS Discharge Goals Bed Transfer Ability Independent Sit to Stand Chair Transfer Ability Independent Ambulation Assistive Device Rolling Walker Ambulation Distance (feet) 50 Discharge Plan PT Discharge Plan Patient to DC to SNF per caregiver report once medically stable. G -code Required No Eval Complexity Eval Charge Codes 15482 - High Comp
[2021-03-14 15:37] LABS: Anion Gap 12.7 mEq/L (5-15); Blood Urea Nitrogen 21 mg/dl (9-20); Calcium 8.4 mg/dl (8.4-10.2); Carbon Dioxide 21 mmol/L (22.0-30.0); Creatinine Clearance Estimated 61 mL/min (50-200); Estimated Glomerular Filt Rate 65 ml/min (>60); GFR (African American) 79 ML/MIN (>60); Glucose 156 mg/dl (74-100)
--- NOTE | 2021-03-14 15:39 | HMH.PHAINT ---
MEDICATION RECONCILIATION COMPLETE USING LIST FROM MD OFFICE AND EXTERNAL PHARMACY FILL HISTORY.
--- NOTE | 2021-03-14 15:45 | HMH.OTEV ---
OT Inpatient Evaluation Rehab OT IP Evaluation Start: 03/14/21 14:22 Freq: ONCE Status: Complete Protocol: Document 03/14/21 15:38 [facility] (Rec: 03/14/21 15:45 [facility] [id number]) Rehab OT IP Assessment Subjective History Pt oriented x 3 on arrival. Pt agreeable to engage in therapy evaluation. Pt was admitted on 03/14/21 following a R total hip arthroplasty. Pt has a past medica history of Anxiety, Chronic Obstructive Pulmonary Disease (COPD), Gastroesophageal Reflux Disease(GERD), Hypertension. Pt reports prior to surgery he lived at home with his . He claims he was independent with all ADL's and IADL's. He did use a walker during ambulation. Subjective I didn't really need help, I just hurt. Objective Patient Orientation Person,Place Upper Extremity Gross ROM WFL Bed Mobility bed mobility-scooting,bed mobility - supine/sit,bed mobility - rolling Assist Level Minimal x 2 (25% assist) Transfer Training Sit/Stand Transfer Assist Level Contact Guard/Hand Hold Chair Transfer Ability Contact Guard/Hand Hold Chair Transfer Technique Sit to/from Ambulatory Chair Transfer Assistive Devices Rolling Walker Rehab OT IP prob,goals,plan Problems Date of Evaluation: 03/14/21 OT IP Problems Bed Mobility,Transfers,Gait, Balance,Self care,Safety Rehab Potential Rehab Potential Good Equipment Needs Assistive Devices Rolling / Wheeled Walker Plan OT intervention Plan Bed Mobility,Transfers,Gait, Balance,Self care,Safety, Therapeutic Exercise OT Plan Frequency BID Duration LOS Discharge Goals Bed Mobility Ability Standby Assistance Sit to Stand Chair Transfer Ability Supervision/Stand by Chair Transfer Ability Supervision/Stand by Chair Transfer Technique Sit to/from Ambulatory Chair Transfer Assistive Devices Rolling Walker Self care skills fully toilet trained,uses utensils to feed self Feeding Ability Assist with Tray Set Up Lower Body Dressing Ability Assistance X
--- NOTE | 2021-03-14 17:03 | HMH.CONS ---
*Admission Date: 03/14/21 *Reason for consult:: Hypertension *History of present illness: 75-year-old male who underwent right hip replacement today by Dr. Smith. I have been consulted as the patient's PCP for his hypertension. Patient did not take his medications for hypertension this morning. Postoperatively blood pressure has been elevated. At present patient reports pain is well controlled. He is sitting up in a chair [facility] History I have reviewed the patient's past medical history: Yes Medical History: Reports:: Anxiety, Chronic Obstructive Pulmonary Disease (COPD), Gastroesophageal Reflux Disease(GERD), Hypertension Denies:: Asthma, Cancer, Cerebrovascular Accident, Diabetes Mellitus Type 1, Diabetes Mellitus Type 2, Hyperlipidemia, Kidney Stones, MRSA, Myocardial Infarction, Osteoporosis, Renal Disease, Renal Insufficiency, Seizures *Have you ever received a pneumonia vaccine?: Yes *Have you received a flu vaccine this season?: Yes Other Medical History: Reports: Arthritis. Denies: Blood Transfusion Reaction, Hypothyroidism, Osteoporosis, Thyroid Disease Anesthesia experience/problems:: none Laterality Cases: Left: Total Hip Replacement Other Surgeries: Yes: No Previous Surgery, Colonoscopy, Other Amputation: No Fractures: No - *Social History Last grade of school completed: High school graduate Smoking Status: Never smoker Tobacco Type: cigarettes # Packs/Day (cigarettes): 0 #Yrs smoked (if former smoker): 0 Alcohol Intake: current Alcohol Intake Frequency:: holidays/special occasions only Substance Use Type: denies use *Occupational Status:: retired Housing: house Household Members: spouse *Travel in the last 8 weeks: None - Psychiatric History Pschychiatric History:: Reports:: Anxiety Family Hx:: Diabetes, Heart Attack, Stroke, Thyroid Disorder Review of Systems - Review of Systems Review of systems:: pertinent systems reviewed and negative unless documented below - *Musculoskeletal Reports abnormal walking, Reports joint pain, Reports back pain Meds Home Medications Medication Instructions Recorded Confirmed Type Amlodipine Besylate [Amlodipine 10 mg PO DAILY 08/06/17 03/14/21 History 10mg Tab] diclofenac sodium 75 mg 75 mg PO BID 09/05/17 03/14/21 History tablet,delayed release glucosamine sulfate 1,000 mg 1,000 mg PO BID 08/27/18 03/14/21 History capsule ibuprofen 200 mg tablet 200 mg PO Q4-6H PRN 08/27/18 03/14/21 History cyclobenzaprine 10 mg tablet 10 mg PO DAILYP PRN tab 09/02/19 03/14/21 History tramadol 50 mg tablet 50 mg PO Q6HP PRN 03/09/21 03/14/21 History Acetaminophen 1,000 mg PO TID 03/11/21 03/14/21 History lisinopriL [Zestril 5mg 5 mg PO DAILY 03/14/21 03/14/21 History Tablet] Allergies Allergy/AdvReac Type Severity Reaction Status Date / Time No Known Allergies Allergy Verified 03/09/21 13:33 Exam Vital signs and Labs for Last 24 Hours: Temp Pulse Resp BP Pulse Ox 97.5 F L 59 L 16 155/89 H 97 03/14/21 14:00 03/14/21 14:25 03/14/21 14:25 03/14/21 14:25 03/14/21 14:25 Laboratory Results - last 24 hr 03/14/21 06:29: Blood Type O Positive, Antibody Screen Negative 03/14/21 08:00: Urine Color Dk yellow, Urine Appearance Clear, Urine pH 5.5, Ur Specific [place] >= 1.030, Urine Protein Trace, Urine Glucose (UA) Negative, Urine Ketones Trace, Urine Blood Negative, Urine Nitrate Negative, Urine Bilirubin Negative, Urine Urobilinogen 0.2, Ur Leukocyte Esterase Negative, Urine RBC None, Urine WBC 3-5, Ur Squamous Epith Cells 3-5, Calcium Oxalate Crystal 1+, Urine Bacteria None 03/14/21 15:12: Sodium 140, Potassium 4.7, Chloride 111 H, Carbon Dioxide 21 L, Anion Gap 12.7, BUN 21 H, Creatinine 1.10, Estimated Creat Clear 61, Estimated GFR 65, Est GFR ( Amer) 79, Glucose 156 H, Calcium 8.4 I & O for Last 24 hours: Intake & Output 03/12/21 03/13/21 03/14/21 03/15/21 11:59 11:59 11:59 11:59 Intake Total 2800 / 2800 Balance 2800 / 2
--- NOTE | 2021-03-14 19:48 | PC.NURSE ---
HE IS AOX4, STATES THAT PAIN HAS BEEN ADEQUATELY CONTROLLED WITH CRISTELA TORADOL PER MAR, HE IS UP TO CHAIR AT THIS TIME WITH ASSISTANCE FROM PHYSICAL THERAPY, HE HAS TOLERATED DIET WELL, DOES NOT REQUIRE O2 SUPPORT, VITAL SIGNS REMAIN STABLE. HAS VOICED DESIRE TO D/C TO [facility] FOR SHORT TERM REHAB FOLLOWING D/C
[2021-03-15] VITALS (9 sets, daily range): BP systolic 119–157; BP diastolic 56–89; PULSE 55–76; RESP 16–20; TEMP 36.4–37.1; O2SAT 95–98; BMI 42.0
--- NOTE | 2021-03-15 06:52 | SW/DCPLANNER ---
Addendum entered by Elvira Hood 03/16/21 06:49: DONNA FROM [facility] CAME UP AND SAW PATIENT AND HAS ACCEPTED HIM FOR SKILLED REHAB AT [facility]... PENDING NO SETBACKS HE WILL DISCHARGE THERE TODAY... AND PATIENT IN AGREEMENT OF THE PLAN.. Original Note: RECEIVED REFERRAL FOR DISCHARGE PLANNING FOR THIS PATIENT... I MADE CONTACT LAST WEEK AND SPOKE WITH PATIENTS WHOM ANSWERED THE PHONE AND SHE STATED SHE WOULD LIKE FOR HER TO GO TO [facility] AFTER SURGERY.. I EXPLAINED TO HER THAT WE WOULD NEED TO CHECK AND SEE IF THEY HAVE A BED AVAILABLE.. I HAVE A PACKET READY THIS MORNING TO SEND OUT ONCE I EXPLORE WHO HAS BED AVAILABILITY THIS MORNING.. PATIENT WAS ABLE TO PARTICIPATE WITH THERAPY YESTERDAY TO DO PT/OT EVALS...
--- NOTE | 2021-03-15 07:01 | P.PN_ITS ---
Internal Medicine - PN: Subj *Date: 03/15/21 *Time: 07:01 Interval history: Patient slept in the chair most of the night due to knee pain. Blood pressure trended down after receiving his antihypertensives. Exam Vital signs and Labs for Last 24 Hours: Temp Pulse Resp BP Pulse Ox 98.4 F 73 20 119/60 95 03/15/21 03:43 03/15/21 03:43 03/15/21 03:51 03/15/21 03:43 03/15/21 03:43 Laboratory Results - last 24 hr 03/14/21 06:29: Blood Type O Positive, Antibody Screen Negative 03/14/21 08:00: Urine Color Dk yellow, Urine Appearance Clear, Urine pH 5.5, Ur Specific [place] >= 1.030, Urine Protein Trace, Urine Glucose (UA) Negative, Urine Ketones Trace, Urine Blood Negative, Urine Nitrate Negative, Urine Bilirubin Negative, Urine Urobilinogen 0.2, Ur Leukocyte Esterase Negative, Urine RBC None, Urine WBC 3-5, Ur Squamous Epith Cells 3-5, Calcium Oxalate Crystal 1+, Urine Bacteria None 03/14/21 15:12: Sodium 140, Potassium 4.7, Chloride 111 H, Carbon Dioxide 21 L, Anion Gap 12.7, BUN 21 H, Creatinine 1.10, Estimated Creat Clear 61, Estimated GFR 65, Est GFR ( Amer) 79, Glucose 156 H, Calcium 8.4 I & O for Last 24 hours: Intake & Output 03/12/21 03/13/21 03/14/21 03/15/21 11:59 11:59 11:59 11:59 Intake Total 2920 / 2920 Output Total 300 / 300 Balance 2620 / 2620 Weight 292 lb 293 lb 3.437 oz - Constitutional no acute distress - *Routine Respiratory Exam Present: CTA bilaterally - *Routine Cardiovascular Exam Present: RRR Assessment and Plan (1) Status post right hip replacement Status: Acute Category: Surgical Code(s): Z96.641 - Presence of right artificial hip joint (2) Osteoarthritis of right hip Status: Acute Category: Medical Code(s): M16.11 - Unilateral primary osteoarthritis, right hip (3) Hypertension Status: Acute Category: Medical Code(s): I10 - Essential (primary) hypertension - Assessment and plan all Dx Assessment and Plan for all problems:: Patient is doing well postop. Continue PT. Care management has been consulted for SNF rehab
[2021-03-15 07:06] LABS: Basophils # 0.1 K/mm3 (0-0.2); Basophils % 0.6 % (0.1-2.0); Eosinophils # 0.1 K/mm3 (0.0-0.4); Eosinophils % 0.3 % (0.1-12.0); Lymphocytes # 1.3 K/mm3 (0.7-4.5); Lymphocytes % 7.3 % (10-50); Mean Corpuscular HGB Conc 32.4 g/dL (31.8-35.4); Mean Corpuscular Hemoglobin 31.2 pg (27.0-31.2); Mean Corpuscular Volume 96.5 fl (80-94); Mean Platelet Volume 8.5 fl (7.4-10.4); Monocytes # 1.2 K/mm3 (0.1-1.0); Monocytes % 6.7 % (1.7-9.3); Neutrophils # 15.5 K/mm3 (1.8-7.8); Neutrophils % 85.1 % (37.0-80.0); Platelet Count 300 K/mm3 (142-424); Red Blood Count 3.21 M/mm3 (4.60-6.20); Red Cell Distribution Width 14.2 % (11.5-17.5); White Blood Count 18.2 K/mm3 (4.8-10.8)
[2021-03-15 07:08] LABS: MANUAL DIFFERENTIAL MANUAL DIFFERENTIAL (MANUAL DIFF)
[2021-03-15 07:09] LABS: Chloride 109 mmol/L (98-107); Potassium 5.1 mmoL/L (3.5-5.1); Sodium 137 mmol/L (136-145)
[2021-03-15 07:12] LABS: Anion Gap 11.1 mEq/L (5-15); Blood Urea Nitrogen 23 mg/dl (9-20); Calcium 8.5 mg/dl (8.4-10.2); Carbon Dioxide 22 mmol/L (22.0-30.0); Creatinine Clearance Estimated 61 mL/min (50-200); Estimated Glomerular Filt Rate 65 ml/min (>60); GFR (African American) 79 ML/MIN (>60); Glucose 117 mg/dl (74-100)
--- NOTE | 2021-03-15 07:20 | HMH.PHAVTE ---
[facility] Pharmacy VTE Monitoring - Patient Demographics Admission date: 03/14/21 Report Date: 03/15/21 Time: 07:20 Allergies/Adverse Reactions: Patient Allergies No Known Allergies Allergy (Verified 03/09/21 13:33) Height: 1.78 m Weight: 133 kg Patient Problems: Current Active Problems Status post right hip replacement (Acute) Osteoarthritis of right hip (Acute) Hypertension (Acute) - VTE Risk Labs: VTE Related Lab Results Hgb 10.0 g/dL (14.1-18.0) L 03/15/21 06:45 Hct 31.0 % (42.0-52.0) L 03/15/21 06:45 Plt Count 300 K/mm3 (142-424) 03/15/21 06:45 BUN 21 mg/dl (9-20) H 03/14/21 15:12 Creatinine 1.10 mg/dl (0.66-1.25) 03/14/21 15:12 Estimated Creat Clear 61 mL/min (50-200) 03/14/21 15:12 - Prophylaxis VTE Prophylaxis Ordered?: Yes Types of VTE Prophylaxis: Pharmacological Pharmacologic Type: Other (XARELTO)
--- NOTE | 2021-03-15 07:21 | P.PN_ITS ---
[facility] Anesthesia Record Part II Discharge Time: 14:25 Destination: Medical Surgical Department PACU nurse assessment reviewed?: Yes Patient Condition:: Good Anesthesia Complications:: None Swallowing reflex intact?: Yes Cyanosis?: No Blood Pressure: 155/89 Pulse Rate: 55 Temperature: 97.5 F Mental Status: Alert & Oriented Pain level:: 4 Nausea and/or vomitting:: None Intake, IV Amount: 0
[2021-03-15 08:12] LABS: Lymphocytes % 10 % (10-50); Monocytes % 8 % (2-9); Neutrophils % 82 % (42-76); Platelet Estimate Normal; RBC Morphology Normal; Total Cells Counted 100
--- NOTE | 2021-03-15 08:21 | PC.NURSE ---
pt alert and oriented. vss. iv patent and infusing. states some pain. dressing remains intact. franci drain was emptied with a total of 100ml this shift of serousangineous drainage. pt slept in chair all night. call light in reach. will continue to monitor
--- NOTE | 2021-03-15 11:12 | PC.NURSE ---
Morning meds documented as unscheduled d/t inpatient meds being d/c'd and home medications used for patient and being scheduled to start tomorrow.
--- NOTE | 2021-03-15 13:44 | HMH.ORTHPN ---
Subjective Date: 03/15/21 Time: 11:45 Principal diagnosis: Status post total hip arthroplasty, right Interval history: Patient is status post right total hip arthroplasty post op day #1. Patient is sitting out in the chair. He says he is doing well and reports no problems. Patient has minimal pain and says it's well-controlled with medication. No history of any nausea or vomiting. No history of any cough, chest pain, shortness of breath or palpitations. Patient says he is eating and drinking well. No history of any distal tingling or numbness. PN: Obj Ex Vital signs: Temp Pulse Resp BP Pulse Ox 98.6 F 71 17 157/71 H 97 03/15/21 11:57 03/15/21 11:57 03/15/21 11:57 03/15/21 11:57 03/15/21 11:57 Narrative: Laboratory Results - last 24 hr 03/14/21 08:00: Urine Color Dk yellow, Urine Appearance Clear, Urine pH 5.5, Ur Specific [place] >= 1.030, Urine Protein Trace, Urine Glucose (UA) Negative, Urine Ketones Trace, Urine Blood Negative, Urine Nitrate Negative, Urine Bilirubin Negative, Urine Urobilinogen 0.2, Ur Leukocyte Esterase Negative, Urine RBC None, Urine WBC 3-5, Ur Squamous Epith Cells 3-5, Calcium Oxalate Crystal 1+, Urine Bacteria None 03/14/21 15:12: Sodium 140, Potassium 4.7, Chloride 111 H, Carbon Dioxide 21 L, Anion Gap 12.7, BUN 21 H, Creatinine 1.10, Estimated Creat Clear 61, Estimated GFR 65, Est GFR ( Amer) 79, Glucose 156 H, Calcium 8.4 03/15/21 06:45: WBC 18.2 H, RBC 3.21 L, Hgb 10.0 L, Hct 31.0 L, MCV 96.5 H, MCH 31.2, MCHC 32.4, RDW 14.2, Plt Count 300, MPV 8.5, Neut % (Auto) 85.1 H, Lymph % (Auto) 7.3 L, [place] % (Auto) 6.7, Eos % (Auto) 0.3, Baso % (Auto) 0.6, Neut # (Auto) 15.5 H, Lymph # (Auto) 1.3, [place] # (Auto) 1.2 H, Eos # (Auto) 0.1, Baso # (Auto) 0.1, Total Counted 100, Neutrophils % (Manual) 82 H, Lymphocytes % (Manual) 10, Monocytes % (Manual) 8, Platelet Estimate Normal, RBC Morphology Normal 03/15/21 06:45: Sodium 137, Potassium 5.1, Chloride 109 H, Carbon Dioxide 22, Anion Gap 11.1, BUN 23 H, Creatinine 1.10, Estimated Creat Clear 61, Estimated GFR 65, Est GFR ( Amer) 79, Glucose 117 H D, Calcium 8.5 Intake & Output 03/13/21 03/14/21 03/15/21 03/16/21 11:59 11:59 11:59 11:59 Intake Total 4207 / 4207 Output Total 400 / 400 Balance 3807 / 3807 Weight 293 lb 3.437 oz Exam General appearance: alert, active, awake, no acute distress Cardiovascular: regular rate & rhythm, normal peripheral pulses Respiratory: No respiratory distress noted, speaks in full sentences ABD: soft and non tender Neuro: alert, awake, oriented x 3 Psych: Appropriate mood and affect Genitourinary: Catheter in situ. On examination of the lower extremities the limb lengths are equal. Thigh and calf are soft and nontender. On examination of the right hip the dressings are clean, dry and intact. Surgical drain in place and drained about 100 cc since surgery. Distal pulses are 2+. Distal sensation is intact to light touch throughout. No motor deficits noted distally. - Urinary Catheter Management Nava Cath placed during this visit: no Progress Note: A&P (1) Status post right hip replacement Status: Acute (2) Osteoarthritis of right hip Status: Acute (3) Hypertension Status: Acute Assessment and Plan for All Diagnoses:: I have reviewed the clinical and operative findings and procedure performed progress with the patient. Patient is doing well and reports no problems. Patient is mobilizing well weightbearing as tolerated on the right side with the walker and to continue the same. Continue DVT prophylaxis. Continue abduction pillow when in bed and continue standard precautions for the posterior approach hip replacement. Discontinue IV fluids. Discontinue the urinary catheter. Case management looking into discharge planning. Continue medical management as per Dr. Donaldson.
--- NOTE | 2021-03-16 00:51 | PC.NURSE ---
He is A&Ox3. He has slept in his chair. Has received PRN medication for pain. DSG on right hip is intact with BUFFY drain present. Serosanguineous drainage in BUFFY drain. Trace edema to BLE. He is requesting that his glucosamine order be changed from 2 tabs daily to 1 tab BID. Home medications are locked in med drawer. He reports his last BM was on 03/13/21.
[2021-03-16 04:00] VITALS: BP 115/58; PULSE 70; RESP 18; TEMP 36.8; O2SAT 98
[2021-03-16 05:09] VITALS: BMI 42.1
[2021-03-16 07:02] LABS: Chloride 110 mmol/L (98-107); Sodium 138 mmol/L (136-145)
[2021-03-16 07:03] LABS: Potassium 4.4 mmoL/L (3.5-5.1)
[2021-03-16 07:05] LABS: Blood Urea Nitrogen 32 mg/dl (9-20); Creatinine Clearance Estimated 61 mL/min (50-200); Estimated Glomerular Filt Rate 65 ml/min (>60); GFR (African American) 79 ML/MIN (>60)
[2021-03-16 07:06] LABS: Anion Gap 11.4 mEq/L (5-15); Calcium 8.5 mg/dl (8.4-10.2); Carbon Dioxide 21 mmol/L (22.0-30.0); Glucose 109 mg/dl (74-100)
[2021-03-16 07:49] LABS: Basophils # 0.1 K/mm3 (0-0.2); Basophils % 0.6 % (0.1-2.0); Eosinophils # 0.8 K/mm3 (0.0-0.4); Eosinophils % 4.7 % (0.1-12.0); Hemoglobin 10.6 g/dL (14.1-18.0); Lymphocytes % 11.5 % (10-50); Mean Corpuscular HGB Conc 34.1 g/dL (31.8-35.4); Mean Corpuscular Hemoglobin 32.2 pg (27.0-31.2); Mean Corpuscular Volume 94.5 fl (80-94); Mean Platelet Volume 9.7 fl (7.4-10.4); Monocytes # 1.5 K/mm3 (0.1-1.0); Monocytes % 8.5 % (1.7-9.3); Neutrophils # 12.7 K/mm3 (1.8-7.8); Neutrophils % 74.6 % (37.0-80.0); Platelet Count 175 K/mm3 (142-424); Red Blood Count 3.28 M/mm3 (4.60-6.20); Red Cell Distribution Width 14.4 % (11.5-17.5)
[2021-03-16 07:53] LABS: MANUAL DIFFERENTIAL MANUAL DIFFERENTIAL (MANUAL DIFF)
[2021-03-16 08:00] VITALS: BP 139/44; PULSE 74; RESP 15; TEMP 36.9; O2SAT 96
[2021-03-16 08:20] LABS: Eosinophils % 6 % (0-3); Hypochromasia 2+; Lymphocytes % 16 % (10-50); Macrocytosis 1+; Monocytes % 9 % (2-9); Neutrophils % 69 % (42-76); Platelet Estimate Normal; Total Cells Counted 100
--- NOTE | 2021-03-16 09:44 | HMH.DCSUM ---
General - General Admission date:: 03/14/21 Discharge date: 03/16/21 HPI HPI: Patient is a 75-year-old male with advanced osteoarthritis of the right hip unresponsive to conservative management. The arthritis is causing severe pain and significant disability and has not responded well to conservative management. His mobility, ability to work, and quality of life is severely impacted. The pain is also affecting his lifestyle, activities of daily living and significantly impacting his sleep. Also he is at a high risk of falls from the arthritis. Therefore a total hip arthroplasty is indicated to relieve pain and to reduce the disability and risk of falls. He previously had a successful left total hip arthroplasty over 3 years ago. Please refer to my office note for full details. Hospital Course Hospital Course: Following a difficult but uncomplicated primary total hip arthroplasty patient was admitted to the inpatient [facility] and has progressed well. His postoperative check x-ray was satisfactory with good alignment and fixation of the components. He was advised to ambulate weightbearing as tolerated on the right side. Patient managed this very well using the walker. His pain is well controlled with oral analgesics. His surgical incision is clean and dry without any active discharge or signs of infection. His distal neurovascular status is intact. No clinical evidence of DVT. Patient is eating and drinking well without any problems. Patient is medically stable at the time of discharge and was cleared for discharge by the physical physical therapy. The drain was removed and dressings were changed on the second postoperative day and the wound is healthy and healing well. No signs of any erythema, induration or discharge. Patient was started on Xarelto 10 mg daily for DVT prophylaxis after surgery. His distal neurovascular status in both lower extremities is intact. Pedal pulses 1+ bilaterally and fully sensate distally. No clinical evidence of DVT noted. On the day of discharge, the wound is clean and dry. The patient's vital signs have been stable throughout and she is afebrile at the time of discharge. He is being discharged to a [facility] facility for postoperative rehab. Condition at discharge: improved and stable. Treatments and Procedures: Total hip arthroplasty, right hip; date of surgery 03/14/2021. Objective Vital signs: Temp Pulse Resp BP Pulse Ox 98.4 F 74 15 139/44 L 96 03/16/21 08:00 03/16/21 08:00 03/16/21 08:00 03/16/21 08:00 03/16/21 08:00 no acute distress, morbidly obese - *Routine HEENT Exam Head: Present: normocephalic Eye: Present: EOMI, PERRL ENT: Present: mucous membranes moist - *Routine Neck Exam Present: supple - *Routine Respiratory Exam Present: CTA bilaterally - *Routine Cardiovascular Exam Present: RRR - *Routine Abdominal Exam Present: soft, normoactive bowel sounds, obese. Absent: tenderness - *Routine Extremities Exam Comments: On examination of the lower extremities the limb lengths are equal. Thigh and calf are soft and nontender. On examination of the right hip the dressings are clean, dry and intact. The surgical drain was removed and dressings are changed by me. There is no soakage of the dressings. The incision looks clean and healthy. No evidence of any infection or other complications is noted. Distal pulses are 1+. Distal sensation is intact to light touch throughout. No motor deficits noted distally. - *Routine Skin Exam Present: warm. Absent: rash - *Routine Neurological Exam Present: alert, oriented X3 - Routine Psychiatric Exam Present: normal affect, cooperative Results Labs on day of discharge: Labs from last 24 hours 03/16/21 03/16/21 06:28 06:28 WBC 17.0 H RBC 3.28 L Hgb 10.6 L Hct 31.0 L MCV 94.5 H MCH 32.2 H MCHC 34.1 RDW 14.4 Plt Count 175 D MPV 9.7 Neut % (Auto) 74.6 Lymph % (Auto) 11.5
== END 2021-03-16 13:42 ==
LOC: 2ND 14:14
PROVIDERS: Admitting Provider Family Medicine; PCP Family Medicine; Visit Provider Orthopaedic Surgery
PROC: (CPT 27130; principal; 2021-03-14 07:30)
DX: M16.11 Unilateral primary osteoarthritis, right hip (principal); I10 Essential (primary) hypertension; K21.9 Gastro-esophageal reflux disease without esophagitis; E03.9 Hypothyroidism, unspecified; J44.9 Chronic obstructive pulmonary disease, unspecified; M81.0 Age-related osteoporosis without current pathological fracture; Z96.642 Presence of left artificial hip joint
CPT/HCPCS: 27130; G0378; 36415; 73502; 80048; 81001; 85007; 85025; 86850; 96374; 97110; 97116; 97163; 97166; 97530; A4649; C1713; C1776; J2405; J3370

== ENCOUNTER → 2021-03-22 14:26 | Outpatient (CLI) | payer MEDICARE, OTHER, SELFPAY ==
--- NOTE | 2021-03-22 14:30 | XR_ITS ---
PROCEDURE: XR HIP RT 2-3V W/PELVIS CLINICAL INDICATION: sp rt total hip on 03/14/2021 COMPARISON: CR XR HIP RT 2-3V W/PELVIS from 03/14/2021 FINDINGS: Status post bilateral total hip replacement. Good alignment without evidence of orthopedic complication.. There is diffuse vascular calcification and there are degenerative changes in lower lumbar spine. There is a total left hip prosthesis present. The inferior screw projects beyond the margin the bony pelvis medially by 11 mm. IMPRESSION: Good alignment status post total hip replacement Dictated by: Aneesh Leavitt MD 03/22/2021 15:59 Aneesh Leavitt MD in [place] 03/22/2021 15:59
== END ==
PROVIDERS: PCP Family Medicine; Visit Provider Orthopaedic Surgery
DX: Z96.642 Presence of left artificial hip joint (principal); M25.551 Pain in right hip
CPT/HCPCS: 73502

== ENCOUNTER → 2021-04-26 13:21 | Outpatient (CLI) | payer MEDICARE, OTHER, SELFPAY ==
--- NOTE | 2021-04-26 13:25 | XR_ITS ---
PROCEDURE: XR HIP RT 2-3V W/PELVIS CLINICAL INDICATION: sx 03/14/21 Follow-up surgery COMPARISON: CR XR HIP RT 2-3V W/PELVIS from 03/22/2021 FINDINGS: Status post bilateral total hip replacements most recently on the right with good alignment and no evidence of orthopedic complication. There is degenerative disc disease in the lower lumbar spine. There is mild diffuse vascular calcification IMPRESSION: Good alignment status post right hip replacement Dictated by: Aneesh Leavitt MD 04/26/2021 13:54 Aneesh Leavitt MD in [place] 04/26/2021 13:54
== END ==
PROVIDERS: PCP Family Medicine; Visit Provider Orthopaedic Surgery
DX: Z96.641 Presence of right artificial hip joint (principal); M25.551 Pain in right hip
CPT/HCPCS: 73502

== ENCOUNTER → 2021-06-07 13:35 | Outpatient (CLI) | payer MEDICARE, OTHER, SELFPAY ==
--- NOTE | 2021-06-07 13:39 | XR_ITS ---
PROCEDURE: XR HIP RT 2-3V W/PELVIS CLINICAL INDICATION: sp RT totaLhip, sx 03/14/21 COMPARISON: CR XR HIP RT 2-3V W/PELVIS from 04/26/2021 FINDINGS: S/p total prosthesis placement on the right with good alignment and no evidence of orthopedic complication. There has been a prior total left hip prosthesis placement. The inferior acetabular screw projects medial to the bony cortex of the ileum 13 mm. This is unchanged. IMPRESSION: Good alignment status post total hip prosthesis placement Dictated by: Aneesh Leavitt MD 06/07/2021 16:54 Aneesh Leavitt MD in [place] 06/07/2021 16:54
== END ==
PROVIDERS: PCP Family Medicine; Visit Provider Orthopaedic Surgery
DX: Z96.641 Presence of right artificial hip joint (principal); M25.551 Pain in right hip
CPT/HCPCS: 73502

== ENCOUNTER 2021-06-14 14:00 | Outpatient (RCR) | payer MEDICARE, OTHER, SELFPAY ==
--- NOTE | 2021-05-11 09:08 | HMH.PTOPEV ---
PT Outpatient Evaluation Rehab PT Outpatient Evaluation Start: 05/11/21 08:30 Freq: Status: Active Protocol: Document 05/11/21 08:30 [facility] (Rec: 05/11/21 09:08 [email or web address] [id number]) Electronically Signed By Uche Waggoner, PT 05/11/21 08:30 Outpatient Therapy Subjective History Subjective History Patient is a 75 year old male presenting to outpatient PT with reports of RLE generalized weakness S/P L ADRIAN 03/14/21. Patient had been experiencing R hip pain since 06/2020. Patient was admitted to SNF after surgery, and then completed home health PT. Comorbidities include hx of HTN, LBP and L ADRIAN. Chief Complaint Pain,Stiff,Gives out/Unstable, Weakness Symptom Type Ache Symptoms Relieved By Rest/Positioning,Prescription Meds Symptoms Aggravated By Standing,Physical Activity, Walking Prior Functional Limitations Standing,Walking Current Functional Limitations Housework,Standing,Squatting, Walking,Balance,Bending/ Stooping Symptom Description Intermittent Level of pain today (0-10) 0 Pain scale - at its best (0-10) 0 Pain scale - at its worst (0-10) 4 Hip/Knee Eval Gait Observation General Gait Pattern Observation Antalgic Gait,Decrease Weight Bear (R) Assistive Device Assistive Devices Straight Cane Palpation Tenderness right Knee Palpation Finding Tenderness Knee Palpation Overall Comment Surgical incision 2/4 MMT left Hip Flexion Strength Grade 5 Normal Hip Abduction Strength Grade 5 Normal Hip Adduction Strength Grade 5 Normal Hip Extension Strength Grade 5 Normal Hip External Rotation Strength Grade 5 Normal Hip Internal Rotation Strength Grade 5 Normal Knee Extension Strength Grade 5 Normal Knee Flexion Strength Grade 5 Normal right Hip Flexion Strength Grade 4 Good Hip Abduction Strength Grade 4 Good Hip Adduction Strength Grade 4 Good Hip Extension Strength Grade 4- Good- Hip External Rotation Strength Grade 4 Good Hip Internal Rotation Strength Grade 4 Good Knee Extension Strength Grade 4 Good Knee Flexion Strength Grade 4 Good ROM left Hip Flexion w/Knee Flexed Active Range 85 of Motion (degrees) Hip Flexion w/Knee Flexed Passive Range 90 of Motion (degrees) Hip Flexion w/
== END 2021-06-14 14:05 | disposition home or self-care (01) ==
LOC: PT 14:00
PROVIDERS: PCP Family Medicine; Visit Provider Orthopaedic Surgery
DX: M25.551 Pain in right hip (principal); Z96.641 Presence of right artificial hip joint
CPT/HCPCS: 97110; 97112; 97163

== ENCOUNTER → 2021-09-20 12:11 | Outpatient (CLI) | payer MEDICARE, OTHER, SELFPAY ==
--- NOTE | 2021-09-20 12:17 | XR_ITS ---
FINAL REPORT CLINICAL HISTORY: status post rt hip replacement, no c/o of pain COMPARISON: 06/07/2021 FINDINGS: RIGHT HIP Three views demonstrate no acute fracture or dislocation. Note is made of bilateral hip arthroplasties. There are significant degenerative changes in the lower lumbar spine. Vascular calcification is noted. No acute soft tissue abnormality is seen. IMPRESSION: No acute process. Reviewed, Interpreted and Dictated by Juan Luis Castillo III, MD Transcribed by Bel Conway Authenticated by Juan Luis Castillo III, MD on 09/20/2021 02:34:51 PM [facility]
== END ==
PROVIDERS: PCP Family Medicine; Visit Provider Orthopaedic Surgery
DX: Z96.641 Presence of right artificial hip joint (principal); M25.552 Pain in left hip
CPT/HCPCS: 73502

== ENCOUNTER → 2022-03-22 12:48 | Outpatient (CLI) | payer MEDICARE, OTHER, SELFPAY ==
--- NOTE | 2022-03-22 12:51 | XR_ITS ---
FINAL REPORT CLINICAL HISTORY: s/p rt hip COMPARISON: 09/20/2021 FINDINGS: RIGHT HIP Two views of the right hip including an AP pelvis demonstrate bilateral hip arthroplasty. There is no acute bony abnormality. The visualized bony structures are well aligned. There is severe degenerative change in the lower lumbar spine. There are vascular calcifications. IMPRESSION: Postoperative change from bilateral hip arthroplasty. Reviewed, Interpreted and Dictated by Juan Luis Castillo III, MD Transcribed by Marilee Squires Authenticated and [facility]
== END ==
PROVIDERS: PCP Family Medicine; Visit Provider Orthopaedic Surgery
DX: Z96.641 Presence of right artificial hip joint (principal); M25.551 Pain in right hip
CPT/HCPCS: 73502

== ENCOUNTER 2023-08-09 15:10 | Outpatient (CLI) | payer MEDICARE, SELFPAY ==
[2023-08-09 19:12] LABS: Alanine Aminotransferase 61 U/L (12-78); Albumin/Globulin Ratio 1.3 (1.1-1.8); Alkaline Phosphatase 131 U/L (38-126); Anion Gap 12.2 mEq/L (5-15); Aspartate Amino Transferase 58 U/L (17-59); Bilirubin,Total 1.2 mg/dl (0.2-1.3); Blood Urea Nitrogen 20 mg/dl (9-20); Calcium 9.3 mg/dl (8.4-10.2); Carbon Dioxide 22 mmol/L (22.0-30.0); Chloride 107 mmol/L (98-107); Cholesterol 193 mg/dl (140-200); Estimated Glomerular Filt Rate 65 ml/min (>60); GFR (African American) 79 ML/MIN (>60); Globulin 3.2 g/dL (1.3-3.2); Glucose 132 mg/dl (74-100); HDL Cholesterol 48 mg/dl (40-60); Potassium 4.2 mmoL/L (3.5-5.1); Sodium 137 mmol/L (136-145); Total Protein,Serum 7.2 g/dl (6.3-8.2); Triglycerides 157 mg/dl (30-150); VLDL Cholesterol 31 mg/dL (0-40)
[2023-08-09 19:15] LABS: Basophils # 0.2 K/mm3 (0-0.2); Basophils % 2.4 % (0.1-2.0); Eosinophils # 0.3 K/mm3 (0.0-0.4); Eosinophils % 4.9 % (0.1-12.0); Hematocrit 49.8 % (42.0-52.0); Hemoglobin 16.3 g/dL (14.1-18.0); Lymphocytes % 31.6 % (10-50); Mean Corpuscular HGB Conc 32.8 g/dL (31.8-35.4); Mean Corpuscular Hemoglobin 32.3 pg (27.0-31.2); Mean Corpuscular Volume 98.6 fl (80-94); Mean Platelet Volume 9.8 fl (7.4-10.4); Monocytes # 0.5 K/mm3 (0.1-1.0); Monocytes % 8.4 % (1.7-9.3); Neutrophils # 3.3 K/mm3 (1.8-7.8); Neutrophils % 52.7 % (37.0-80.0); Platelet Count 289 K/mm3 (142-424); Red Blood Count 5.05 M/mm3 (4.60-6.20); Red Cell Distribution Width 13.9 % (11.5-17.5); White Blood Count 6.3 K/mm3 (4.8-10.8)
[2023-08-09 19:26] LABS: Direct LDL Cholesterol 102.74 mg/dL (100-129)
[2023-08-09 19:45] LABS: Prostate Specific Ag Screen 1.4 ng/ml (0.0-4.0); Thyroid Stimulating Hormone 1.74 uIU/mL (0.465-4.68)
== END 2023-08-09 23:59 ==
PROVIDERS: PCP Family Medicine; Visit Provider Family Medicine
DX: R53.83 Other fatigue (principal); Z12.5 Encounter for screening for malignant neoplasm of prostate; I10 Essential (primary) hypertension; E78.5 Hyperlipidemia, unspecified; Z79.899 Other long term (current) drug therapy
CPT/HCPCS: 80053; 80061; 84443; 85025; G0103

== ENCOUNTER 2024-04-24 10:23 | Outpatient (CLI) | payer MEDICARE, SELFPAY ==
--- NOTE | 2024-04-24 10:30 | XR_ITS ---
FINAL REPORT CLINICAL HISTORY: right knee pain COMPARISON: None FINDINGS: RIGHT KNEE 3 views of the right knee were obtained. There is no acute fracture or dislocation. There is advanced medial compartment joint space narrowing with osteophytes on the medial aspect and subchondral sclerosis. There is also advanced degenerative narrowing of the lateral facet of the patellofemoral joint with associated osteophytes posteriorly. Soft tissues are unremarkable. IMPRESSION: Advanced degenerative change of the medial compartment and the patellofemoral joint as described. Reviewed, Interpreted and Dictated by Dat Lobato MD Transcribed by Ana Quezada Authenticated and [facility]
== END 2024-04-24 23:59 | disposition home or self-care (01) ==
LOC: RAD 10:26
PROVIDERS: PCP Family Medicine; Visit Provider Physician Assistant Surgical
DX: M25.561 Pain in right knee (principal)
CPT/HCPCS: 73562

== ENCOUNTER 2024-05-30 08:13 | Outpatient (POV) | payer MEDICARE, SELFPAY ==
[2024-05-30 08:39] VITALS: BP 146/75; BP 159/76; PULSE 64; RESP 18; O2SAT 95; BMI 40.1
--- NOTE | 2024-05-30 08:51 | A.OFFVIS_ITS ---
HPI Data of Consult Patient: known to practice within the last 3 years Consult date: 05/30/24 Requesting Physician: Jojo Timmons APRN Primary Care Provider: Jose Foote MD Consult Narrative Reason for consult: Low back pain, bilateral leg pain History of present illness: Mr. Zuñiga is a 78 year old male who presents today to [facility]. Patient was a previous patient of ours back in 2020. Patient rates his pain today a 6 out of 10. He states he is still having chronic low back pain however he has been experiencing worsening pain over the last 6 months. He does describe it as an aching, throbbing sensation with numbness and tingling that radiates down both of his extremities to his ankles. He does state that the right side is worse than the left. He states that when this initially started on this episode he had been cleaning out a storage building and did not necessarily have an injury but then it started a couple days later. Patient states the pain is worse with increased activity or ambulation and does interfere with his ability perform activities of daily living such as cooking and cleaning. Patient does state that he feels like he has a lot of popping and that he can even straighten out his legs because of the worsening pain. Patient has tried oral medications, heat and ice and topicals with minimal relief. Patient has been to a chiropractor in the past and denies any recent physical therapy. Patient has continued to do at home exercising and stretching for longer than 12 weeks with no additional improvement. Patient does state that he is interested in injection therapy. Patient is not on any current scheduled medications. CC: Jojo Timmons APRN [facility] Disclaimer: The information contained in this section may have been updated after the patient was seen, as this information can be updated by other users. 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 current occupational exposures/hazards: No caffeine: Yes Review of Systems Review of Systems Review of systems:: pertinent systems reviewed and negative unless documented below Review of systems (narrative): Review of Systems: General: No recent weight changes, no fever, no sleep disturbances Respiratory: No cough, no shortness of air, no recurring pulmonary infections Cardiovascular/peripheral vascular: No chest pain, no palpitations, no edema, no shortness of breath Gastrointestinal: No new onset incontinence, normal bowel movements reported Genitourinary: No new onset incontinence Musculoskeletal: Low back pain, bilateral leg pain Psychiatric: [Normal mood/affect] Neurological: [Denies weakness in extremities], [denies balance issues] Meds Home Medications and Allergies Home Medications ?Medication ?Instructions ?Recorded ?Confirmed ?Type cyclobenzaprine 10 mg tablet 10 mg PO DAILYP PRN BACK PAIN 09/02/19 05/30/24 History magnesium 200 mg tablet 200 mg PO DAILY Supplement 03/15/21 04/29/24 History amlodipine 10 mg tablet 10 mg PO DAILY Hypertension 90 08/09/23 05/30/24 Rx days #90 tabs tamsulosin 0.4 mg capsule (Flomax) 0.4 mg PO DAILY #30 caps 08/09/23 04/29/24 Rx diclofenac sodium 75 mg See Rx Instructions .Route 02/25/24 05/30/24 Rx tablet,delayed release .COMPLEX #60 tabs losartan 50 mg-hydrochlorothiazide 1 tab PO DAILY 05/30/24 05/30/24 History 12.5 mg tablet New Prescriptions to Start Prescriptions: Allergies Allergy/AdvReac Type Severity Reaction Status Date / Time No Known Allergies Allergy Verified 04/29/24 14:39 Objective Vital signs: Pulse Resp BP Pulse Ox O2 Del Method 64 18 159/76 H 95 Room Air 05/30/24 08:39 05/30/24 08:39 05/30/24 08:39 05/30/24 08:39 05/30/24 08:39 Narrative: Physical Exam: General: Alert and oriented x3, no acute distress, pleasant and cooperative Lungs: Respirations even and unlabored, symmetrical chest expansion Eyes: PERRL Musculoskeletal: Flexion and extension of lumbar [spine] somewhat guarded secondary to pain, [antalgic gait noted] Neurological: Speech clear, no gross sensory deficit Additional findings Additional findings: FINDINGS: There is normal alignment. The spinal cord is at the T12 level. There is mild lumbar scoliosis convex right. There is multilevel degenerative disc disease with endplate hypertrophic change and bulging disc along with facet and ligamentum flavum hypertrophy. T11-T12: Mild degenerative disc disease. T12-L1: Mild degenerative disc disease. L1-L2: Degenerative disc disease with bulging disc along with facet and ligamentum flavum hypertrophy with bilateral lateral recess narrowing and bilateral foraminal narrowing.. The bulging disc is slightly more prominent compared to the previous exam. There is narrowing of the canal with mild impingement upon the anterior aspect of the thecal sac from the bulging disc. L2 L3: Degenerative disc disease with endplate hypertrophy and bulging disc along with facet and ligamentum flavum hypertrophy. Prominent left lateral osteophytes. There is transverse narrowing of the canal. There is severe left-sided foraminal narrowing from facet and ligamentum flavum hypertrophy and the bulging disc similar to the previous exam. There is canal stenosis. The bulging disc and narrowing of the canal appears slightly worse on today's study. L3-L4: Degenerative disc disease with bulging disc along with facet and ligamentum flavum hypertrophy with severe narrowing of the canal in the transverse plane at 6 mm. There are severe bilateral lateral recess and foraminal narrowing. L4-L5: Degenerative disc disease with bulging disc and endplate hypertrophic change. The bulging disc is somewhat eccentric toward the right. There are severe right lateral recess and foraminal narrowing and moderate left lateral recess and foraminal narrowing. There is canal stenosis at 10 mm. L5-S1: Degenerative disc disease with bulging disc with facet and ligamentum flavum hypertrophy with mild bilateral lateral recess narrowing and severe left bilateral foraminal narrowing. IMPRESSION: Abnormal MRI of the lumbar spine. There is multilevel degenerative disc disease along with endplate hypertrophic change bulging disc, facet and ligamentum flavum hypertrophy with multilevel canal stenosis and severe lateral recess and foraminal narrowing. Please see above for detailed description at each level No extruded herniated disc. Dictated By: Aneesh Leavitt MD Signed By: <Electronically signed by Aneesh Leavitt MD in OV> 05/24/18 0543 DD/ 1718 Assessment and Plan *Assessment and plan (1) Degenerative disc disease, lumbar: Status: Acute Category: Medical Code(s): M51.369 - Other intervertebral disc degeneration, lumbar region without mention of lumbar back pain or lower extremity pain (2) Lumbar radiculopathy: Status: Acute Category: Medical Code(s): M54.16 - Radiculopathy, lumbar region (3) Spinal stenosis of lumbar region: Status: Acute Category: Medical Code(s): M48.061 - Spinal stenosis, lumbar region without neurogenic claudication Plan Patient is experiencing significant pain throughout his low back with radiating numbness and tingling down into his lower extremities. Patient did have significant findings on his last MRI that was in 2018 with significant stenosis multilevel. I did discuss with the patient that I do believe he would benefit from a lumbar epidural steroid injection. Risk and benefits were discussed with patient and he would like to proceed forward with this plan of care. Patient has tried and failed conservative therapy including continued at home stretching exercise for longer than 12 weeks. Patient will be scheduled for a LESI L4-L5 under fluoroscopy. Patient has been instructed to contact the clinic with any concerns before the next appointment. Dr. Santiago has reviewed this note and agrees with this plan of care. This note was dictated using voice recognition software and make contain errors or omissions. All injections are used with Lidocaine or Bupivacaine and Depo Medrol.
== END 2024-05-30 23:59 | disposition home or self-care (01) ==
LOC: SC.PAIN 08:14
PROVIDERS: PCP Family Medicine; Visit Provider Nurse Practitioner Family
DX: M48.061 Spinal stenosis, lumbar region without neurogenic claudication; Z96.642 Presence of left artificial hip joint; Z73.89 Other problems related to life management difficulty; M51.16 Intervertebral disc disorders with radiculopathy, lumbar region
CPT/HCPCS: 99202; G0463

== ENCOUNTER 2024-06-10 11:35 | Day surgery (SDC) | payer MEDICARE, SELFPAY ==
[2024-06-10 11:54] VITALS: BP 125/66; PULSE 74; RESP 16; TEMP 36.8; O2SAT 94; BMI 38.5
[2024-06-10 12:03] VITALS: BP 167/83; PULSE 84; RESP 18; O2SAT 95
[2024-06-10] MEDS: methylPREDNISolone ACETATE 80MG/ML VIAL 80 MG (12:03)
--- NOTE | 2024-06-10 12:05 | EXP.PAIN.PRO ---
Procedure Date: 06/10/24 Time: 11:50 Anesthesiologist:: James Escobedo CRNA Complications:: None Pre-procedure Diagnosis:: Degenerative disc lumbar spine multilevels. Lumbar radiculopathy. Lumbar spinal stenosis. Multilevel lumbar facet arthropathy. Lumbar spondylosis. Post-procedure Diagnosis:: Same. Indications for Procedure:: Patient is a very pleasant 78-year-old male who comes our clinic today for lumbar epidural steroid injection at the L4-5 level. Patient describes low lumbar back pain as constant, dull, aching. Patient also reports bilateral hip and leg radicular symptoms at times. He rates his pain 7/10. Procedure Details:: Procedure: Lumbar epidural steroid injection under fluoroscopy Informed consent was obtained and the risks and benefits of the procedure were explained to the patient. The patient was taken to the procedure room and noninvasive monitors placed, including noninvasive blood pressure cuff and pulse oximeter. The back was viewed using C-arm Fluoroscopy and prepped using Chloraprep as a cleansing solution and the L4-L5 interspace was palpated. Skin and subcutaneous tissues were anesthetized using lidocaine 1.5% and a 25-gauge needle. After this, an 18-gauge Touhy epidural needle was placed into the L4-L5 interspace and advanced using fluoroscopic guidance and loss of resistance to air until the epidural space was encountered. After confirmation of needle placement in the epidural space, with dye, a solution containing normal saline, 3 mL and Depo-Medrol 80 mg were incrementally injected into the lumbar epidural space. The patient tolerated the procedure well with no complications. The patient was observed in the Pain Clinic and then discharged home neurologically intact. Plan and Disposition:: Patient was discharged without incident.
[2024-06-10 12:09] VITALS: BP 167/83; PULSE 84; RESP 18; O2SAT 95
[2024-06-10 12:18] VITALS: BP 150/73; PULSE 72; RESP 16; O2SAT 94
== END 2024-06-10 12:18 | disposition home or self-care (01) ==
PROVIDERS: PCP Family Medicine; Visit Provider Nurse Anesthetist, Certified Registered
DX: M51.16 Intervertebral disc disorders with radiculopathy, lumbar region (principal); M48.062 Spinal stenosis, lumbar region with neurogenic claudication; M47.26 Other spondylosis with radiculopathy, lumbar region
CPT/HCPCS: 62323; J1010

== ENCOUNTER 2024-06-23 14:40 | Outpatient (POV) | payer MEDICARE, SELFPAY ==
--- NOTE | 2024-06-23 14:50 | A.OFFVIS_ITS ---
[facility] Disclaimer: The information contained in this section may have been updated after the patient was seen, as this information can be updated by other users. 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 Today he rates his pain a 2 out of 10. Patient denies any new trauma or injury. He does state that he has had approximately 50 to 60% improvement. He does state that this is still seeming to help. He does however state that he has been experience a little bit more pain on his left hip. He states that it is present on the right however it is not as prominent. He states it is a burning sensation that goes in and around his buttocks and upper thigh area. Patient does state this pain will go to a 9 out of 10. He states that just depends on what he is doing that he can be sitting for prolonged periods or even getting up and walking and it will randomly cause shooting pain. Patient is interested in additional injection therapy for this pain. Patient has tried and failed conservative therapy including at home stretching exercise for longer than 12 weeks. His Bubba has been reviewed and is appropriate. Review of Systems: General: No recent weight changes, no fever, no sleep disturbances Respiratory: No cough, no shortness of air, no recurring pulmonary infections Cardiovascular/peripheral vascular: No chest pain, no palpitations, no edema, no shortness of breath Gastrointestinal: No new onset incontinence, normal bowel movements reported Genitourinary: No new onset incontinence Musculoskeletal: Bilateral hip pain Psychiatric: [Normal mood/affect] Neurological: [Denies weakness in extremities], [denies balance issues] Pain at rest (0-10 scale): 9 Objective Objective:: Physical Exam: General: Alert and oriented x3, no acute distress, pleasant and cooperative Lungs: Respirations even and unlabored, symmetrical chest expansion Eyes: PERRL Musculoskeletal: Flexion and extension of lumbar [spine] somewhat guarded secondary to pain, [antalgic gait noted] point tenderness along bilateral SIs with positive bilateral Chun's, Mariano's, Gaenslen's, compression and distraction exam Neurological: Speech clear, no gross sensory deficit Has patient had previous pain injection?: Yes Percent improvement in pain since last injection: 50 to 60% Conservative treatment options previously tried: Home exercise plan Length of treatment: Longer than 12 weeks Meds Home Medications and Allergies Home Medications ?Medication ?Instructions ?Recorded ?Confirmed ?Type cyclobenzaprine 10 mg tablet 10 mg PO DAILYP PRN BACK PAIN 09/02/19 06/10/24 History magnesium 200 mg tablet 200 mg PO DAILY Supplement 03/15/21 06/10/24 History amlodipine 10 mg tablet 10 mg PO DAILY Hypertension 90 08/09/23 06/10/24 Rx days #90 tabs tamsulosin 0.4 mg capsule (Flomax) 0.4 mg PO DAILY #30 caps 08/09/23 06/10/24 Rx diclofenac sodium 75 mg See Rx Instructions .Route 02/25/24 06/10/24 Rx tablet,delayed release .COMPLEX #60 tabs losartan 50 mg-hydrochlorothiazide 1 tab PO DAILY 05/30/24 06/10/24 History 12.5 mg tablet New Prescriptions to Start Prescriptions: Allergies Allergy/AdvReac Type Severity Reaction Status Date / Time No Known Allergies Allergy Verified 04/29/24 14:39 Assessment and Plan *Assessment and plan (1) Bilateral sacroiliitis: Status: Acute Category: Medical Code(s): M46.1 - Sacroiliitis, not elsewhere classified Plan Patient is a pleasant 78-year-old male who did get significant relief with his lumbar epidural. Patient is however experiencing worsening pain in his bilateral hips with point tenderness along both of these joints and a positive bilateral Chun's, Mariano's, Gaenslen's, compression and distraction exam. I did discuss with the patient's that he may benefit from bilateral SI injections. Risk and benefits were discussed with patient and he would like to proceed forward with this plan of care. Patient has tried and failed conservative therapy including continued at home stretching exercise for longer than 12 weeks. Patient has had overall low back and hip pain for longer than 3 months. Patient will be submitted for bilateral SI injections under fluoroscopy. Patient has been instructed to contact the clinic with any concerns before the next appointment. Dr. Santiago has reviewed this note and agrees with this plan of care. This note was dictated using voice recognition software and make contain errors or omissions. All injections are used with Lidocaine or Bupivacaine and Depo Medrol.
[2024-06-23 15:09] VITALS: BP 145/73; PULSE 74; RESP 18; O2SAT 95; BMI 38.7
== END 2024-06-23 23:59 | disposition home or self-care (01) ==
LOC: SC.PAIN 14:40
PROVIDERS: PCP Family Medicine; Visit Provider Nurse Practitioner Family
DX: M46.1 Sacroiliitis, not elsewhere classified (principal); Z96.642 Presence of left artificial hip joint
CPT/HCPCS: 99212; G0463

== ENCOUNTER 2024-07-22 09:50 | Day surgery (SDC) | payer MEDICARE, SELFPAY ==
[2024-07-22 10:36] VITALS: BP 184/89; PULSE 58; RESP 16; O2SAT 95; BMI 38.7
[2024-07-22] MEDS: methylPREDNISolone ACETATE 80MG/ML VIAL 80 MG (10:46)
[2024-07-22] MEDS: LIDOCAINE 1% 5ML PF VIAL 5 ML (10:47)
[2024-07-22] MEDS: BUPIVACAINE 0.25% 10ML INJ 25 MG IJ (10:47)
[2024-07-22 10:53] VITALS: BP 149/78; PULSE 63; RESP 16; O2SAT 96
--- NOTE | 2024-07-22 12:36 | P.PCN_ITS ---
Procedure Date: 07/22/24 Time: 11:30 Anesthesiologist:: James Escobedo CRNA Complications:: None Pre-procedure Diagnosis:: Bilateral sacroiliitis Post-procedure Diagnosis:: Same. Indications for Procedure:: Patient is a very pleasant 78-year-old male who comes our clinic today for bilateral sacroiliac joint injections of cortisone and local anesthetic. Patient describes low lumbar back pain as constant, dull, aching this pain is off the midline bilaterally. Also, patient reports bilateral posterior hip pain. He reports difficulty transitioning from sitting to standing. He rates his pain 7/10. Procedure Details:: Procedure: Bilateral sacroiliac joint injections under fluoroscopy Informed consent was obtained and the risks and benefits of the procedure were explained to the patient.~ The patient was taken to the procedure room and noninvasive monitors were placed including a noninvasive blood pressure cuff and pulse oximeter.~ The patient was placed prone on the procedure table. Both hips were cleansed using Betadine as a cleansing solution. C-arm fluoroscopy was used to view the right sacroiliac joint.~ The skin and subcutaneous tissues were anesthetized using lidocaine 1.5% and a 25-gauge needle.~ After this, a 22-gauge spinal needle was inserted under fluoroscopic guidance into the inferior aspect of the right sacroiliac joint.~ Omnipaque dye was injected and good spread was seen throughout the joint.~ After this, approximately 5 mL of bupivacaine, 0.25% and Depo-Medrol, 40 mg was incrementally injected into the right sacroiliac joint. We then moved to the left sacroiliac joint.~ The skin and subcutaneous tissues were anesthetized using lidocaine 1.5% and a 25-gauge needle.~ After this, a 22- gauge spinal needle was inserted under fluoroscopic guidance into the inferior aspect of the left sacroiliac joint.~ Omnipaque dye was injected and good spread was seen throughout the joint. After this, approximately 5 mL of bupivacaine, 0.25% and Depo-Medrol, 40 mg was incrementally injected into the left sacroiliac joint.~ The patient tolerated the procedure well with no complications. The patient was observed in the Pain Clinic and then was discharged home neurologically intact. Plan and Disposition:: Patient was discharged without incident.
== END 2024-07-22 10:53 | disposition home or self-care (01) ==
PROVIDERS: PCP Family Medicine; Visit Provider Nurse Anesthetist, Certified Registered
DX: M46.1 Sacroiliitis, not elsewhere classified (principal)
CPT/HCPCS: 27096; G0260; J1010

== ENCOUNTER 2024-08-25 14:30 | Outpatient (POV) | payer MEDICARE, SELFPAY ==
--- NOTE | 2024-08-25 15:05 | A.OFFVIS_ITS ---
[facility] Disclaimer: The information contained in this section may have been updated after the patient was seen, as this information can be updated by other users. 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 Today he rates his low back pain a 0 out of 10. Patient states he has had 100% relief following this injection and feels like it is still working well. He does make mention that he still has increased issues with his legs when he has been up standing for so long that he does have to stop and take. He denies any other changes from our last visit. His Bubba has been reviewed and is appropriate. Review of Systems: General: No recent weight changes, no fever, no sleep disturbances Respiratory: No cough, no shortness of air, no recurring pulmonary infections Cardiovascular/peripheral vascular: No chest pain, no palpitations, no edema, no shortness of breath Gastrointestinal: No new onset incontinence, normal bowel movements reported Genitourinary: No new onset incontinence Musculoskeletal: Low back pain Psychiatric: [Normal mood/affect] Neurological: [Denies weakness in extremities], [denies balance issues] Pain at rest (0-10 scale): 0 Objective Objective:: Physical Exam: General: Alert and oriented x3, no acute distress, pleasant and cooperative Lungs: Respirations even and unlabored, symmetrical chest expansion Eyes: PERRL Musculoskeletal: Flexion and extension of lumbar [spine] somewhat guarded secondary to pain, [antalgic gait noted] Neurological: Speech clear, no gross sensory deficit Has patient had previous pain injection?: Yes Percent improvement in pain since last injection: 100% Conservative treatment options previously tried: Home exercise plan Length of treatment: Longer than 12 weeks Meds Home Medications and Allergies Home Medications ?Medication ?Instructions ?Recorded ?Confirmed ?Type cyclobenzaprine 10 mg tablet 10 mg PO DAILYP PRN BACK PAIN 09/02/19 07/22/24 History magnesium 200 mg tablet 200 mg PO DAILY Supplement 03/15/21 07/22/24 History amlodipine 10 mg tablet 10 mg PO DAILY Hypertension 90 08/09/23 07/22/24 Rx days #90 tabs tamsulosin 0.4 mg capsule (Flomax) 0.4 mg PO DAILY #30 caps 08/09/23 07/22/24 Rx diclofenac sodium 75 mg See Rx Instructions .Route 02/25/24 07/22/24 Rx tablet,delayed release .COMPLEX #60 tabs losartan 50 mg-hydrochlorothiazide 1 tab PO DAILY 05/30/24 07/22/24 History 12.5 mg tablet New Prescriptions to Start Prescriptions: Allergies Allergy/AdvReac Type Severity Reaction Status Date / Time No Known Allergies Allergy Verified 07/22/24 11:16 Assessment and Plan *Assessment and plan (1) Lumbar radiculopathy: Status: Acute Category: Medical Code(s): M54.16 - Radiculopathy, lumbar region (2) Degenerative disc disease, lumbar: Status: Acute Category: Medical Code(s): M51.369 - Other intervertebral disc degeneration, lumbar region without mention of lumbar back pain or lower extremity pain (3) Bilateral sacroiliitis: Status: Acute Category: Medical Code(s): M46.1 - Sacroiliitis, not elsewhere classified Plan Patient has had significant improvement following his SI injections and does not require any additional injection therapy. Patient will return to clinic in 6 weeks for reevaluation of symptoms and plan of care. Patient has been instructed to contact the clinic with any concerns before the next appointment. Dr. Santiago has reviewed this note and agrees with this plan of care. This note was dictated using voice recognition software and make contain errors or omissions. All injections are used with Lidocaine, Bupivacaine and Depo Medrol. Occasionally urine drug screen is needed to verify patient's compliance with our office pain contract. This is ordered based off specific treatments related to chronic pain with the potential to abuse certain medications.
[2024-08-25 15:10] VITALS: BP 189/97; PULSE 112; RESP 18; O2SAT 100; BMI 38.7
== END 2024-08-25 23:59 | disposition home or self-care (01) ==
LOC: SC.PAIN 14:32
PROVIDERS: PCP Family Medicine; Visit Provider Nurse Practitioner Family
DX: M46.1 Sacroiliitis, not elsewhere classified (principal); M51.16 Intervertebral disc disorders with radiculopathy, lumbar region; Z96.642 Presence of left artificial hip joint
CPT/HCPCS: 99212; G0463

== ENCOUNTER 2024-10-09 13:43 | Outpatient (POV) | payer MEDICARE, MEDICAID, SELFPAY ==
--- NOTE | 2024-10-09 14:09 | A.OFFVIS_ITS ---
[facility] Disclaimer: The information contained in this section may have been updated after the patient was seen, as this information can be updated by other users. 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 current occupational exposures/hazards: No caffeine: Yes Have you lived/traveled outside US in past 30 days?: No Contact w/someone who lives/traveled outside US past 30 days?: No Exposure to someone with infectious disease in past 14 days?: No Do you have a fever (greater than 100.4 F or 38 C)?: No Have you tested positive for COVID-19: No Exposed to someone with COVID-19 in past 14 days?: No Do you have a sore throat?: No Do you have a cough?: No Do you have any weakness?: No Do you have any diarrhea?: No Are you experiencing any unusual bleeding?: No Do you have any muscle aches/pain?: No Do you have any abdominal pain?: No Are you experiencing loss of taste or smell?: No PM Subjective & Objective Subjective Subjective:: Patient is a pleasant 78-year-old male who presents today for worsening pain. He rates his pain a 6 out of 10. He denies any new trauma or injury. He does state that the previous pain has officially came back. Patient states the pain is all across to his low back and bilateral hips. Patient did previously have bilateral SI injections in July that did provide 100% relief and he states has lasted up until about the last week or so. He states the pain has progressively came back and that it is an aching, throbbing sensation that is interfering with his ability to perform activities of daily living such as cooking and cleaning. He states that he would really like to get in and get scheduled for repeat injections. He states those did provide significant impr reese function and overall decreased pain. Patient denies any other changes from our last visit other than the fact that he did have a knee injection and that helps some of that pain. His Bubba has been reviewed and is appropriate. Review of Systems: General: No recent weight changes, no fever, no sleep disturbances Respiratory: No cough, no shortness of air, no recurring pulmonary infections Cardiovascular/peripheral vascular: No chest pain, no palpitations, no edema, no shortness of breath Gastrointestinal: No new onset incontinence, normal bowel movements reported Genitourinary: No new onset incontinence Musculoskeletal: Low back pain, bilateral hip pain Psychiatric: [Normal mood/affect] Neurological: [Denies weakness in extremities], [denies balance issues] Pain at rest (0-10 scale): 6 Objective Objective:: Physical Exam: General: Alert and oriented x3, no acute distress, pleasant and cooperative Lungs: Respirations even and unlabored, symmetrical chest expansion Eyes: PERRL Musculoskeletal: Flexion and extension of lumbar [spine] somewhat guarded secondary to pain, [antalgic gait noted] point tenderness along bilateral SIs with positive bilateral Chun's, Mariano's, Gaenslen's, compression and distraction exam Neurological: Speech clear, no gross sensory deficit Has patient had previous pain injection?: No Conservative treatment options previously tried: Home exercise plan Length of treatment: Longer than 12 weeks Meds Home Medications and Allergies Home Medications ?Medication ?Instructions ?Recorded ?Confirmed ?Type cyclobenzaprine 10 mg tablet 10 mg PO DAILYP PRN BACK PAIN 09/02/19 09/02/24 History magnesium 200 mg tablet 200 mg PO DAILY Supplement 03/15/21 09/02/24 History amlodipine 10 mg tablet 10 mg PO DAILY Hypertension 90 08/09/23 09/02/24 Rx days #90 tabs tamsulosin 0.4 mg capsule (Flomax) 0.4 mg PO DAILY #30 caps 08/09/23 09/02/24 Rx diclofenac sodium 75 mg See Rx Instructions .Route 02/25/24 09/02/24 Rx tablet,delayed release .COMPLEX #60 tabs losartan 50 mg-hydrochlorothiazide 1 tab PO DAILY 05/30/24 09/02/24 History 12.5 mg tablet New Prescriptions to Start Prescriptions: Allergies Allergy/AdvReac Type Severity Reaction Status Date / Time No Known Allergies Allergy Verified 09/02/24 13:39 Assessment and Plan *Assessment and plan (1) Bilateral sacroiliitis: Status: Acute Category: Medical Code(s): M46.1 - Sacroiliitis, not elsewhere classified Plan Patient is experiencing worsening pain along the low back and bilateral hips. They did have limited range of motion of the lumbar spine along with point tenderness along bilateral SI joints and a positive bilateral Chun's, Mariano's, Gaenslen's, compression and distraction exam. I did discuss with the patient that I do believe they would benefit from bilateral SI injections. Risk and benefits were discussed with the patient and they would like to proceed forward with this option. Patient has tried and failed conservative therapy including continued at home stretching exercise for longer than 12 weeks between injections. Patient had 100% relief with his bilateral SI injections done in July and did last almost 3 months. Patient has had this pain going on for longer than 6 months. Patient will be scheduled for bilateral SI injections under fluoroscopy. Patient has been instructed to contact the clinic with any concerns before the next appointment. Dr. Santiago has reviewed this note and agrees with this plan of care. This note was dictated using voice recognition software and make contain errors or omissions. All injections are used with Lidocaine or Bupivacaine and Depo Medrol.
[2024-10-09 14:21] VITALS: BP 131/66; PULSE 88; RESP 14; O2SAT 94; BMI 38.7
== END 2024-10-09 23:59 | disposition home or self-care (01) ==
PROVIDERS: PCP Family Medicine; Visit Provider Nurse Practitioner Family
DX: M46.1 Sacroiliitis, not elsewhere classified (principal); Z96.642 Presence of left artificial hip joint; Z73.89 Other problems related to life management difficulty
CPT/HCPCS: 99212; G0463

== ENCOUNTER 2024-11-11 13:27 | Day surgery (SDC) | payer MEDICARE, SELFPAY ==
[2024-11-11 13:34] VITALS: BP 174/82; PULSE 70; RESP 18; TEMP 36.4; O2SAT 100; BMI 38.7
--- NOTE | 2024-11-11 13:39 | P.PCN_ITS ---
Procedure Date: 11/11/24 Time: 13:45 Anesthesiologist:: James Escobedo CRNA Complications:: None Pre-procedure Diagnosis:: Bilateral sacroiliitis Post-procedure Diagnosis:: Same Indications for Procedure:: Patient is a very pleasant 79-year-old male who comes our clinic today for bilateral sacroiliac joint injections cortisone local anesthetic. Patient describes lumbar back pain off the midline bilaterally. Bilateral posterior hip pain. Difficulty transitioning from sitting to standing. Difficulty with ambulation. He rates his pain 7/10. Procedure Details:: Procedure: Bilateral sacroiliac joint injections under fluoroscopy Informed consent was obtained and the risks and benefits of the procedure were explained to the patient.~ The patient was taken to the procedure room and noninvasive monitors were placed including a noninvasive blood pressure cuff and pulse oximeter.~ The patient was placed prone on the procedure table. Both hips were cleansed using Betadine as a cleansing solution. C-arm fluoroscopy was used to view the right sacroiliac joint.~ The skin and subcutaneous tissues were anesthetized using lidocaine 1.5% and a 25-gauge needle.~ After this, a 22-gauge spinal needle was inserted under fluoroscopic guidance into the inferior aspect of the right sacroiliac joint.~ Omnipaque dye was injected and good spread was seen throughout the joint.~ After this, approximately 5 mL of bupivacaine, 0.25% and Depo-Medrol, 40 mg was incrementally injected into the right sacroiliac joint. We then moved to the left sacroiliac joint.~ The skin and subcutaneous tissues were anesthetized using lidocaine 1.5% and a 25-gauge needle.~ After this, a 22- gauge spinal needle was inserted under fluoroscopic guidance into the inferior aspect of the left sacroiliac joint.~ Omnipaque dye was injected and good spread was seen throughout the joint. After this, approximately 5 mL of bupivacaine, 0.25% and Depo-Medrol, 40 mg was incrementally injected into the left sacroiliac joint.~ The patient tolerated the procedure well with no complications. The patient was observed in the Pain Clinic and then was discharged home neurologically intact. Plan and Disposition:: Patient was discharged without incident.
[2024-11-11 13:41] VITALS: BP 152/78; PULSE 84; RESP 18; O2SAT 94
[2024-11-11] MEDS: LIDOCAINE 1% 5ML PF VIAL 5 ML (13:41)
[2024-11-11 13:46] VITALS: BP 144/80; PULSE 70; RESP 17; O2SAT 97
[2024-11-11 13:50] VITALS: BP 152/78; PULSE 84; RESP 18; O2SAT 94
== END 2024-11-11 13:46 | disposition home or self-care (01) ==
PROVIDERS: PCP Family Medicine; Visit Provider Nurse Anesthetist, Certified Registered
DX: M46.1 Sacroiliitis, not elsewhere classified (principal)
CPT/HCPCS: 27096; G0260; J1010

== ENCOUNTER 2024-11-24 10:20 | Outpatient (POV) | payer MEDICARE, SELFPAY ==
[2024-11-24 10:27] VITALS: BP 136/74; PULSE 66; RESP 14; O2SAT 97; BMI 37.3
--- NOTE | 2024-11-24 11:03 | EXP.PAIN.SOA ---
[facility] Disclaimer: The information contained in this section may have been updated after the patient was seen, as this information can be updated by other users. 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 Today he rates his pain there in his low back a 1 out of 10. He states he has had at least 80% improvement and feels like it is still working well. He does however state that he is having increased pain in his right knee and rates this pain currently a 2 out of 10 but does state as soon as he gets up walking and moving it will go to a sharp sensation that is at least a 9 out of 10. Patient states that the pain is interfering with his ability perform activities of daily living such as cooking and cleaning I would like to see about additional injection therapy for this joint pain. His Bubba has been reviewed and is appropriate. Review of Systems: General: No recent weight changes, no fever, no sleep disturbances Respiratory: No cough, no shortness of air, no recurring pulmonary infections Cardiovascular/peripheral vascular: No chest pain, no palpitations, no edema, no shortness of breath Gastrointestinal: No new onset incontinence, normal bowel movements reported Genitourinary: No new onset incontinence Musculoskeletal: Left knee pain Psychiatric: [Normal mood/affect] Neurological: [Denies weakness in extremities], [denies balance issues] Pain at rest (0-10 scale): 9 Objective Objective:: Physical Exam: General: Alert and oriented x3, no acute distress, pleasant and cooperative Lungs: Respirations even and unlabored, symmetrical chest expansion Eyes: PERRL Musculoskeletal: Flexion and extension of right knee somewhat guarded secondary to pain, [antalgic gait noted] Neurological: Speech clear, no gross sensory deficit Has patient had previous pain injection?: Yes Percent improvement in pain since last injection: 80% Conservative treatment options previously tried: Home exercise plan Length of treatment: Longer than 12 weeks Meds Home Medications and Allergies Home Medications ?Medication ?Instructions ?Recorded ?Confirmed ?Type cyclobenzaprine 10 mg tablet 10 mg PO DAILYP PRN BACK PAIN 09/02/19 11/24/24 History magnesium 200 mg tablet 200 mg PO DAILY Supplement 03/15/21 11/24/24 History amlodipine 10 mg tablet 10 mg PO DAILY Hypertension 90 08/09/23 11/24/24 Rx days #90 tabs tamsulosin 0.4 mg capsule (Flomax) 0.4 mg PO DAILY #30 caps 08/09/23 11/24/24 Rx diclofenac sodium 75 mg See Rx Instructions .Route 02/25/24 11/24/24 Rx tablet,delayed release .COMPLEX #60 tabs losartan 50 mg-hydrochlorothiazide 1 tab PO DAILY 05/30/24 11/24/24 History 12.5 mg tablet New Prescriptions to Start Prescriptions: Allergies Allergy/AdvReac Type Severity Reaction Status Date / Time No Known Allergies Allergy Verified 11/11/24 13:35 Assessment and Plan *Assessment and plan (1) Right knee pain: Status: Acute Category: Medical Code(s): M25.561 - Pain in right knee Plan Patient is experiencing worsening pain in his right knee with limited range of motion. I did review over with the patient that he may benefit from repeat right knee intra-articular injection. Patient has had chronic right knee pain for longer than 6 months and has had injection therapy in the past with his last injection in August that did provide 80 to 90% improvement. Risk and benefits were discussed with the patient and he would like to proceed forward with this plan of care. Patient has continued conservative treatment including oral medications, heat and ice, topicals, at home stretching exercise for longer than 12 weeks. Patient will be scheduled for a right intra-articular knee injection. This will be done without fluoroscopic guidance or ultrasound. Patient has been instructed to contact the clinic with any concerns before the next appointment. Dr. Santiago has reviewed this note and agrees with this plan of care. This note was dictated using voice recognition software and make contain errors or omissions. All injections are used with Lidocaine, Bupivacaine and Depo Medrol. Occasionally urine drug screen is needed to verify patient's compliance with our office pain contract. This is ordered based off specific treatments related to chronic pain with the potential to abuse certain medications.
== END 2024-11-24 23:59 | disposition home or self-care (01) ==
LOC: SC.PAIN 10:21
PROVIDERS: PCP Family Medicine; Visit Provider Nurse Practitioner Family
DX: M25.561 Pain in right knee (principal); Z96.642 Presence of left artificial hip joint; Z73.89 Other problems related to life management difficulty
CPT/HCPCS: 99212; G0463

== ENCOUNTER 2024-12-23 09:41 | Day surgery (SDC) | payer MEDICARE, SELFPAY ==
[2024-12-23 09:52] VITALS: BP 148/72; PULSE 64; RESP 16; TEMP 36.3; O2SAT 98; BMI 38.7
--- NOTE | 2024-12-23 10:04 | EXP.PAIN.PRO ---
Procedure Date: 12/23/24 Time: 10:00 Anesthesiologist:: James Escobedo CRNA Complications:: None Pre-procedure Diagnosis:: DJD right knee. Chronic right knee pain. Post-procedure Diagnosis:: Same. Indications for Procedure:: Patient is a very pleasant 79-year-old male who comes our clinic today for a right intra-articular knee injection to cortisone local anesthetic. Patient describes right knee pain as constant, dull, aching. Patient reports responding very well to intra-articular cortisone in the past. He rates his pain today 6/10. Procedure Details:: Details of the procedure explained to the patient. The patient taken procedure room placed in the sitting position. The over the right knee was cleaned using chlorhexidine as a cleansing solution. Using a 22-gauge inch and half needle the right knee joint was accessed from the anterior lateral position. After negative aspiration 4 cc of 1% lidocaine +4 cc of 0.25% Marcaine and 40 mg of Depo-Medrol was injected. Patient tolerated procedure without difficulty. There are no complications. Plan and Disposition:: Patient was discharged without incident.
[2024-12-23] MEDS: LIDOCAINE 1% 5ML PF VIAL 5 ML (10:05)
[2024-12-23] MEDS: DEXAMETHASONE 10MG/ML 1ML VIAL 10 MG (10:05)
[2024-12-23] MEDS: BUPIVACAINE 0.25% 10ML INJ 25 MG IJ (10:05)
[2024-12-23 10:06] VITALS: BP 148/72; PULSE 64; RESP 18; O2SAT 98
[2024-12-23 10:13] VITALS: BP 148/72; PULSE 64; RESP 18; O2SAT 98
[2024-12-23 10:20] VITALS: BP 137/63; PULSE 59; RESP 16; O2SAT 95
== END 2024-12-23 10:20 | disposition home or self-care (01) ==
PROVIDERS: PCP Family Medicine; Visit Provider Nurse Practitioner Family
DX: M17.11 Unilateral primary osteoarthritis, right knee (principal); M25.561 Pain in right knee; G89.29 Other chronic pain
CPT/HCPCS: 20610; J1100

== ENCOUNTER 2025-01-14 14:04 | Outpatient (POV) | payer MEDICARE, MEDICAID, SELFPAY ==
--- OUTSIDE RECORDS SUMMARY | 2025-01-14 14:12 | XMS_ITS | Clinical Summary ---
Author Organization [facility] Address [address] [place], [place] [id number] Phone [email or web address] Care Team Providers Care Laborer [facility] Name Role Phone Unavailable Primary Care Provider Unavailabl e Allergies No known active allergies Medications UNKNOWN TO PATIENTIndicatio ns:blood pressure med, stomach pill Active meloxicam (MOBIC) 15 MG tablet Take 15 mg by mouth 1 (one) time each day. 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 Gender Identity Not on file Sexual Orientation Not on file Last Filed Vital Signs Vital Sign Reading Time Taken Comments Blood Pressure 181/86 07/17/2019 6:37 AM EST Pulse 73 07/17/2019 6:37 AM EST Temperature - - Respiratory Rate - - Oxygen Saturation - - Inhaled Oxygen Concentration - - Weight - - Height - - Body Mass Index - - Plan of Treatment Health Maintenance Due Date Last Done Comments Dental Cleaning/Exam 1945 Tetanus Diphtheria and Pertu ssis Immunization (1 - Tdap) 1965 Pneumococcal: 65+ Years (1 o f 1 - PCV) 1996 Zoster Immunization (1 of 2) 1996 RSV Immunization >= 75 yrs o ld or 60-74 yrs old at risk (1 - 1-dose 75+ series) 2021 Covid-19 Immunization (1 - 2 25 season) 2024 Influenza Immunization (Seas on Ended) 2025 HIB Immunization Aged Out No longer e ligible based on patient's age to complete this topic HPV Immunization Aged Out No longer e ligible based on patient's age to complete this topic Hepatitis A Immunization Aged Out No longer eligible based on patient's age to complete this topic Hepatitis B Immunization Aged Out No longer eligible based on patient's age to complete this topic Polio Immunization Aged Out No longer eligible based on patient's age to complete this topic
--- OUTSIDE RECORDS SUMMARY | 2025-01-14 14:12 | XMS_ITS | Clinical Summary ---
Author Organization [facility] Address [address] [place] [address] Care Team Providers Care Music Teacher Name Role Phone Yoan Foote MD Primary Care Provider [phone] Allergies No known active allergies Medications diclofenac (Cataflam) 50 MG tablet Take by mouth 2 (two) times a day. Active docusate sodium (Colace) 100 MG capsule Take 100 mg by mouth 1 (one) time each day. Active glucosamine-sherry droitin 500-400 MG tablet Take 1 tablet by mouth 2 (two) times a day. Active traMADol (Ultram) 50 MG tablet Take 50 mg by mouth 3 (three) times a day. Active amLODIPine (Norvasc) 10 MG tablet Take 10 mg by mouth 1 (one) time each day. Active cyclobenzaprine (Flexeril) 10 MG tablet Take 10 mg by mouth at night if needed for muscle spasms. Active Magnesium 250 MG tablet Take 250 mg by mouth 2 (two) times a day. Active Multiple Vitamin (multivitamin) tablet Take 1 tablet by mouth 1 (one) time each day. Active POTASSIUM CHLORIDE ER PO Take 8 mEq by mouth 1 (one) time each day. Do not crush, chew, or split. Active Family History Medical History Relation Name Comments Arthritis Other 1 Hypertension Other 2 Heart Problem Other 3 Relation Name Status Comments Other 1 Other 2 Other 3 Social History Tobacco Use Types Packs/Day Years Used Date Smoking Tobacco: Never Smokeless Tobacco: Never Alcohol Use Standard Drinks/Week Comments Yes 0 (1 standard drink = 0.6 oz pure alcohol) Alcoholic Drinks/day: Occasional alcohol use Sex and Gender Information Value Date Recorded Sex Assigned at Not on file Legal Sex Male 6:33 PM EDT Gender Identity Not on file Sexual Orientation Not on file Last Filed Vital Signs Vital Sign Reading Time Taken Comments Blood Pressure 151/79 12/30/2020 12:21 PM EDT Pulse 75 12/30/2020 12:21 PM EDT Temperature 37 C (98.6 F) 12/30/2020 12:21 PM EDT Respiratory Rate 20 12/30/2020 12:21 PM EDT Oxygen Saturation 95% 12/30/2020 12:21 PM EDT Inhaled Oxygen Concentration - - Weight 133 kg (293 lb) 12/30/2020 12:21 PM EDT Height 177.8 cm (5' 10 ) 12/30/2020 12:21 PM EDT Body Mass Index 42.04 12/30/2020 12:21 PM EDT Plan of Treatment Health Maintenance Due Date Last Done Comments [facility]-Depression Screening 1945 [facility]-Infant/Child/Adol SDOH Screenings 1945 [facility]- SDOH Screenings 1964 [facility]-Adult SDOH Screenings 1964 [facility]-DTaP,Tdap,and Td Vaccine s (1 - Tdap) 1965 [facility]-Pneumococcal Vaccine: 50 + Years (1 of 1 - PCV) 1996 [facility]-Zoster Vaccines (1 of 2) 1996 [facility]-RSV Vaccine: 60+ Years o r (1 - 1-dose 75+ series) 2021 [id number] Vaccine (1 - 20 24-25 season) 2024 [facility]-Influenza Vaccine (Seaso n Ended) 2025 HPV Vaccines Aged Out No longer eligi ble based on patient's age to complete this topic [facility]-HIB Vaccines Aged Out No longer e ligible based on patient's age to complete this topic [facility]-Hepatitis A Vaccines Aged Out No longer eligible based on patient's age to complete this topic [facility]-IPV Vaccines Aged Out No longer e ligible based on patient's age to complete this topic [facility]-Rotavirus Vaccines Aged Out No lo nger eligible based on patient's age to complete [place] [address] [place] [address] MEDICARE Care Teams Music Teacher Relationship Specialty Start Date End Date Yoan Foote MD [address] [place] [address] [address]1 [address]1 YOJANA Jones [id number] PCP - General 12/17/20
--- NOTE | 2025-01-14 14:47 | EXP.PAIN.SOA ---
[facility] Disclaimer: The information contained in this section may have been updated after the patient was seen, as this information can be updated by other users. 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 Today he rates his pain a 1 out of 10. He does state that he has had about 90% improvement following this injection and feels like it is still helping. He does make mention that yesterday for what ever reason he did have a lot of pain but by this morning it was much improved. Patient denies any other changes from our last appointment. His Bubba has been reviewed and is appropriate. Review of Systems: General: No recent weight changes, no fever, no sleep disturbances Respiratory: No cough, no shortness of air, no recurring pulmonary infections Cardiovascular/peripheral vascular: No chest pain, no palpitations, no edema, no shortness of breath Gastrointestinal: No new onset incontinence, normal bowel movements reported Genitourinary: No new onset incontinence Musculoskeletal: Right knee pain Psychiatric: [Normal mood/affect] Neurological: [Denies weakness in extremities], [denies balance issues] Pain at rest (0-10 scale): 1 Objective Objective:: Physical Exam: General: Alert and oriented x3, no acute distress, pleasant and cooperative Lungs: Respirations even and unlabored, symmetrical chest expansion Eyes: PERRL Musculoskeletal: Flexion and extension of right knee somewhat guarded secondary to pain, [antalgic gait noted] Neurological: Speech clear, no gross sensory deficit Has patient had previous pain injection?: Yes Percent improvement in pain since last injection: 90% Conservative treatment options previously tried: Home exercise plan Length of treatment: Longer than 12 weeks Meds Home Medications and Allergies Home Medications ?Medication ?Instructions ?Recorded ?Confirmed ?Type cyclobenzaprine 10 mg tablet 10 mg PO DAILYP PRN BACK PAIN 09/02/19 01/06/25 History magnesium 200 mg tablet 200 mg PO DAILY Supplement 03/15/21 01/06/25 History amlodipine 10 mg tablet 10 mg PO DAILY Hypertension 90 08/09/23 01/06/25 Rx days #90 tabs diclofenac sodium 75 mg See Rx Instructions .Route 02/25/24 01/06/25 Rx tablet,delayed release .COMPLEX #60 tabs losartan 50 mg-hydrochlorothiazide 1 tab PO DAILY 05/30/24 01/06/25 History 12.5 mg tablet aspirin 81 mg tablet,delayed 81 mg PO DAILY #30 tabs 01/06/25 01/06/25 Rx release (Adult Aspirin Regimen) New Prescriptions to Start Prescriptions: Allergies Allergy/AdvReac Type Severity Reaction Status Date / Time No Known Allergies Allergy Verified 01/06/25 14:46 Assessment and Plan *Assessment and plan (1) Osteoarthritis of right hip: Status: Acute Category: Medical Code(s): M16.11 - Unilateral primary osteoarthritis, right hip Plan Patient has had significant improvement following his right knee intra-articular injection and does not require any additional injection therapy at this time. Patient will return to clinic in 6 weeks for reevaluation of symptoms and plan of care. Patient has been instructed to contact the clinic with any concerns before the next appointment. Dr. Santiago has reviewed this note and agrees with this plan of care. This note was dictated using voice recognition software and make contain errors or omissions. All injections are used with Lidocaine, Bupivacaine and dexamethasone. Occasionally urine drug screen is needed to verify patient's compliance with our office pain contract. This is ordered based off specific treatments related to chronic pain with the potential to abuse certain medications.
[2025-01-14 15:27] VITALS: BP 125/75; PULSE 65; RESP 16; O2SAT 97; BMI 38.5
== END 2025-01-14 23:59 | disposition home or self-care (01) ==
LOC: SC.PAIN 14:05
PROVIDERS: PCP Family Medicine; Visit Provider Nurse Practitioner Family
DX: M16.11 Unilateral primary osteoarthritis, right hip (principal)
CPT/HCPCS: 99212; G0463

== ENCOUNTER 2025-01-15 11:00 | Outpatient (CLI) | payer MEDICARE, MEDICAID, SELFPAY ==
--- NOTE | 2025-01-15 | CA_ITS ---
APPROVED REPORT Exam: Pharmacologic Technologist: Sylvia Sharp Ht: 5 ft 10 in Wt: 269 lbs BSA: 2.37 m2 Medical History Medications: amlodipine, cyclobenzaprine, diclofenac sodium, losartan-hctz, magnesium Stress Test Details Test: Lexiscan Reason for pharmacologic stress test: physical limitation. HR Resting HR: 55 bpm Max Heart Rate (APMHR): 142 bpm Max HR Achieved: 69 bpm Target HR (85% APMHR): 121 bpm % of APMHR: 49 Recovery HR: 62 bpm BP Resting BP: 159.0/71.0 mmHg Max BP: 159.0/71.0 mmHg Recovery BP: 151.0/72.0 mmHg ECG Resting ECG: SR. No isch or ectopy Stress ECG Conclusion Symptoms: None. Arrhythmias/Ectopy: None. Lexiscan. ST-T Changes: None. Electronically signed by : Kimberly Willis MD 01/15/2025 14:21:39
--- NOTE | 2025-01-15 11:30 | NM_ITS ---
APPROVED REPORT Exam: Nuclear Stress Test Indication: SOB, HTN Patient Location: Outpatient Stress Tech: Sylvia Newman [place] Tech:DARLEEN Cam RT(R)(N) Ht: 5 ft 10 in Wt: 269 lbs HR: 55 bpm BP: 159/71 mmHg BSA: 2.37 m2 TID: 1.22 BMI: 38.5 History: SOB, HTN Procedure: Patient received 0.4 mg of intravenous Lexiscan, resting heart rate 55 bpm, resting blood pressure 159/71 mmHg, with Lexiscan maximum heart rate achieved was 74 bpm which is % of the maximum predicted heart rate and blood pressure was 151/72 mmHg. With Lexiscan, patient denied any complaint of chest pain. Cardiac Stress and Resting SPECT Images: Cardiac Stress and Resting SPECT images were obtained using technetium 99m Myoview 30.1 mCi stress and 10.80 mCi at rest. Right imaging demonstrates significant soft tissue overlap with the cardiac borders. This may affect diagnostic interpretation of the study findings. Resting and stress imaging in supine positions demonstrate a medium sized, moderate, fixed perfusion defect in the basal to mid inferior LV barboza. Findings are suggestive of diaphragmatic attenuation, but true perfusion defect cannot be entirely ruled out. There is also increase in transient ischemic dilatation ratio (TID 1.22), which may be suggestive of possible multivessel disease or balanced ischemia. Gated imaging demonstrates normal global and regional LV systolic function. LVEF is calculated at 71%. Conclusion: Medium sized, moderate, fixed perfusion defect in the basal to mid inferior LV barboza. Findings are suggestive of diaphragmatic attenuation, but true perfusion defect cannot be entirely ruled out. There is also increase in transient ischemic dilatation ratio (TID 1.22), which may be suggestive of possible multivessel disease or balanced ischemia. Gated imaging demonstrates normal global and regional LV systolic function. LVEF is calculated at 71%. Electronically signed by : Kimberly Willis MD 01/19/2025 11:59:12
--- OUTSIDE RECORDS SUMMARY | 2025-01-15 13:07 | XMS_ITS | Clinical Summary ---
Author Organization Healthcare Address [address] [place] [address] Care Team Providers Care Mortgage Originator Name Role Phone Yoan Foote MD Primary Care Provider [phone] Allergies No known active allergies Medications diclofenac [...] r (1 - 1-dose 75+ series) 2021 [id number] Vaccine (1 - 20 24-25 season) 2024 [...] [place] [address] MEDICARE Care Teams Mortgage Originator Relationship Specialty Start Date End Date Yoan Foote MD [address] [place] [address] #1 #1 YOJANA Jones [address] PCP - General 12/17/20
--- OUTSIDE RECORDS SUMMARY | 2025-01-15 13:07 | XMS_ITS | Clinical Summary ---
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
[2025-01-15] MEDS: REGADENOSON 0.4MG/5ML SYRINGE 0.4 MG IV (13:18)
[2025-01-15] MEDS: ISOTOPE MYOVIEW (PER STUDY) 1 DOSE IV (13:18)
[2025-01-15] MEDS: SODIUM CHLORIDE 0.9% 10ML SYR (RAD ONLY) 10 ML IV ×2 (13:19)
--- NOTE | 2025-01-15 14:30 | CA_ITS ---
APPROVED REPORT EXAM: Comprehensive 2D, Doppler, and color-flow Echocardiogram Health Economist: Nayeli Peterson CRT Ht: 5 ft 10 in Wt: 269lbs BSA: 2.37 BP: 130/62 mmHg Indications: LV function 2D Dimensions LA Volume 32.20 mL LA Volume Index 13.30 mL/m2 (M/F) 16-34 M-Mode Dimensions RVDd 2.68 cm (0.9-2.6) LA Diam 4.02 cm (1.9-4.0) LVDd 4.69 cm (3.5-5.7) LVDs 2.85 cm (3.5-5.7) IVSd 0.97 cm (0.6-1.1) PWd 0.80 cm (0.6-1.1) EF (Teich) 69.70% FS 39.20% EDV (Teich) 101.90 mL TAPSE 2.46 (<1.7) ESV (Teich) 30.90 mL LV Diastology E Decel Time 230 (160-240 msec) E/A Ratio 0.47 MED A' 13.50 cm/s LAT A' 16.90 cm/s Aortic Valve JULIO C Index 1.26 cm2/m2 AoV Peak Jorje. 174.0 (50-130 cm/s) AO Peak GR. 12.20 mmHg AO Mean GR. 6.40 (<5 mmHg) AO VTI 38.0 (18-25 cm) JULIO C (VTI) 3.06 (2.5-4.5 cm2) Mitral Valve MV A Velocity 122.0 (40-130 cm/s) E/A Ratio 0.47 Pulmonary Valve PV Peak Velocity 112.0 (50-150 cm/s) Tricuspid Valve TR P. Velocity 262.00 cm/s RAP Estimate 10.00 mmHg RVSP 37.40 mmHg Left Ventricle The left ventricle is normal size. The left ventricular systolic function is normal. The left ventricular ejection fraction is within the normal range. There is increased LV wall thickness. There is normal LV segmental wall motion. The left ventricular diastolic function is normal. LVEF is 60%. Right Ventricle The right ventricle is normal size. The right ventricular systolic function is normal. Atria The left atrium is mildly dilated. The right atrium is mildly dilated. There is no Doppler evidence of interatrial shunt. Aortic Valve The aortic valve is mildly thickened. There is no aortic valvular stenosis. Trace aortic regurgitation. Mitral Valve The mitral valve is normal in structure. No evidence of mitral valve stenosis. Trace mitral regurgitation. Tricuspid Valve Tricuspid valve is grossly normal in structure and function. Trace tricuspid regurgitation. There is insufficient TR jet to estimate RVSP. Pulmonic Valve The pulmonary valve is normal in structure. Trace pulmonic regurgitation. Great Vessels The aortic root is normal in size. IVC is normal in size and collapses >50% with inspiration. Pericardium There is no pericardial effusion. Other Information Study Quality: Fair Conclusion Normal biventricular systolic function. Mild biatrial dilation. No significant valvular stenosis or regurgitation. Electronically signed by : Kimberly Willis MD 01/24/2025 17:22:20
== END 2025-01-15 23:59 | disposition home or self-care (01) ==
LOC: RAD 11:00
PROVIDERS: PCP Family Medicine; Visit Provider Nurse Practitioner Family
DX: I11.9 Hypertensive heart disease without heart failure (principal); R94.31 Abnormal electrocardiogram [ECG] [EKG]; R06.02 Shortness of breath; R94.39 Abnormal result of other cardiovascular function study
CPT/HCPCS: 78452; 93017; 93018; 93306; A9502; J2785

== ENCOUNTER 2025-02-17 07:40 | Day surgery (SDC) | payer OTHER, SELFPAY ==
[2025-02-17] VITALS (14 sets, daily range): BP systolic 118–158; BP diastolic 57–82; PULSE 53–69; RESP 15–20; O2SAT 90–99; BMI 39.2
--- NOTE | 2025-02-17 07:10 | IR_ITS ---
APPROVED REPORT Patient Location: Outpatient Cotton Farmer: DARLEEN Menjivar RT (R) PROCEDURES Left heart catheterization Left ventriculogram Selective coronary angiogram Drug-eluting stent deployment to the proximal LAD and mid LAD in a noncontiguous manner INDICATION Coronary artery disease, Angina pectoris, Abnormal Myoview Informed consent was obtained prior to the procedure. COMPLICATIONS NONE Estimated Blood Loss: LESS THAN 10 ML TECHNIQUE One percent lidocaine used to anesthetize the right anterior aspect of the wrist. The right radial artery was accessed via the Seldinger technique. A 6 Hungarian sheath was placed in the right radial artery. 2.5 mg of Verapamil, 800 mcg of nitroglycerin, 1mg Lidocaine and 5000 U Heparin were given through the arterial sheath. The JL3 catheter was also used to perform left heart catheterization, left ventriculogram and selective coronary angiogram. At the end of the diagnostic angiogram therapeutic Was administered giving a therapeutic ACT and the guide catheter was placed in the left main artery followed by Choice PT extra-support wire placed into the LAD. A 2.5 x 22 mm Bhupendra frontier stent was deployed at 20 prisca reducing the critical mid vessel stenoses to 0%. An additional 3.5 x 12 mm Enochs frontier stent was placed proximally in a noncontiguous manner and deployed at 20 prisca. A 4 mm x 8 mm noncompliant balloon was deployed in the midportion and proximal portion of the 12 mm stent at 24 prisca to post dilate. Excellent angiograph results were obtained with DARLENE-3 flow being present before and after the procedure. At the end the procedure the apparatus was removed the sheath was removed and hemostasis was achieved using TR banding patient was transferred to the postop porting in stable condition ANGIOGRAPHIC RESULTS The left main artery Normal The left anterior descending artery Proximal 50% concentric stenosis followed by mid vessel tandem 90% stenosis with remaining vessel normal The circumflex artery Dominant mild luminal regularities The right coronary artery Nondominant with proximal 30 to 40% stenosis mid vessel 30% and distal 30% stenosis The LANGLEY ventriculogram reveals Normal 65% The left ventricular end-diastolic pressure 10 to 15 mmHg IMPRESSION Coronary disease as described above Successful stenting of the proximal and mid LAD in a noncontiguous manner Mild to moderate disease throughout the nondominant right coronary Normal ejection fraction Normal LVEDP PLAN 1. Dual antiplatelet therapy 2. Cardiac rehabilitation 3. Avoidance of tobacco products 4. Risk factor modification 5. LDL less than 55 achieved with high intensity statin Electronically signed by : Mayank Webber MD 02/17/2025 12:27:59
[2025-02-17 08:09] LABS: Hematocrit 40.3 % (42.0-52.0); Hemoglobin 13.4 g/dL (14.1-18.0); Immature Granulocytes % 0.4 %; Mean Corpuscular HGB Conc 33.3 g/dL (31.8-35.4); Mean Corpuscular Hemoglobin 31.5 pg (27.0-31.2); Mean Corpuscular Volume 94.8 fl (80-94); Nucleated Red Blood Cells % 0 %; Platelet Count 305 K/mm3 (142-424); Red Blood Count 4.25 M/mm3 (4.60-6.20); Red Cell Distribution Width-SD 46.5 fL; White Blood Count 7.0 K/mm3 (4.8-10.8)
[2025-02-17 08:16] LABS: Anion Gap 14.9 mEq/L (5-15); Blood Urea Nitrogen 22 mg/dl (9-20); Calcium 9.8 mg/dl (8.4-10.2); Carbon Dioxide 24 mmol/L (22.0-30.0); Chloride 100 mmol/L (98-107); Creatinine Clearance Estimated 89 mL/min (50-200); Creatinine,Serum 1.20 mg/dl (0.66-1.25); Estimated Glomerular Filt Rate 59 ml/min (>60); GFR (African American) 71 ML/MIN (>60); Glucose 96 mg/dl (74-100); Potassium 3.9 mmoL/L (3.5-5.1); Sodium 135 mmol/L (136-145)
[2025-02-17] MEDS: VERAPAMIL 2.5MG/ML 2ML VIAL 2.5 MG IV (09:31)
[2025-02-17] MEDS: LIDOCAINE 1% 10ML MDV 10 ML IJ (09:31)
[2025-02-17] MEDS: NITROGLYCERIN 800MCG/8ML SYR (CATH LAB) 800 MCG IA (09:31)
[2025-02-17] MEDS: HEPARIN 1,000 UNITS/500ML NS (CATH LAB) 3000 UNIT IV (09:31)
[2025-02-17] MEDS: HEPARIN 1,000 UNITS/ML 10ML VIAL (CATH LAB) 5000 UNIT IV ×2 (09:31→09:58)
[2025-02-17] MEDS: 0.9 % SODIUM CHLORIDE 500 ML 25 ML IV (09:32)
[2025-02-17] MEDS: FENTANYL 100MCG/2ML VIAL 50 MCG IV (09:51)
[2025-02-17] MEDS: MIDAZOLAM HCL 1MG/ML 5ML VIAL 1 MG IV (09:56)
[2025-02-17] MEDS: IOPAMIDOL-370 (76%);100ML BOTTLE 120 ML IV (10:27)
[2025-02-17 10:39] LABS: CATHL Activated Clotting Time 398 SEC (74-125)
== END 2025-02-17 14:05 | disposition home or self-care (01) ==
PROVIDERS: PCP Family Medicine; Visit Provider Internal Medicine
PROC: 4A023N7 Measurement of Cardiac Sampling and Pressure, Left Heart, Percutaneous Approach (ICD-10-PCS; CPT 93452; principal; 2025-02-17 07:30)
DX: I25.118 Atherosclerotic heart disease of native coronary artery with other forms of angina pectoris (principal); R93.1 Abnormal findings on diagnostic imaging of heart and coronary circulation; I10 Essential (primary) hypertension; E66.01 Morbid (severe) obesity due to excess calories; Z68.41 Body mass index [BMI] 40.0-44.9, adult; R60.0 Localized edema; Z79.82 Long term (current) use of aspirin; Z79.02 Long term (current) use of antithrombotics/antiplatelets; Z79.899 Other long term (current) drug therapy; Z82.49 Family history of ischemic heart disease and other diseases of the circulatory system
CPT/HCPCS: 93458; C9600; 80048; 85025; 85347; 92928; 99152; C1725; C1760; C1769; C1874; J1200; J1644; J2003; J3010; J7040; Q9967

== ENCOUNTER 2025-02-25 13:04 | Outpatient (POV) | payer OTHER, SELFPAY ==
--- OUTSIDE RECORDS SUMMARY | 2025-02-25 13:11 | XMS_ITS | Clinical Summary ---
Author Organization Healthcare Address [address] [place] [address] Care Team Providers Care Locker Plant Attendant Name Role Phone Yoan Foote MD Primary Care Provider [phone] Allergies No known active allergies Medications diclofenac [...] r (1 - 1-dose 75+ series) 2021 [id number] Vaccine (1 - 20 24-25 season) 2024 [facility]-Influenza Vaccine (#1) 2025 HPV Vaccines Aged Out No longer [...] [place] [address] MEDICARE Care Teams Locker Plant Attendant Relationship Specialty Start Date End Date Yoan Foote MD [address] [place] [address] #1 #1 YOJANA [place] [id number] PCP - General 12/17/20
--- OUTSIDE RECORDS SUMMARY | 2025-02-25 13:11 | XMS_ITS | Clinical Summary ---
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
--- NOTE | 2025-02-25 13:13 | A.OFFVIS_ITS ---
[facility] Disclaimer: The information contained in this section may have been updated after the patient was seen, as this information can be updated by other users. Medical History Atypical angina SOB (shortness of breath) on exertion Abnormal findings on diagnostic imaging of heart and coronary circulation Right knee pain Osteoarthritis of right hip Edema of lower extremity Hypertension Surgical History Status post left hip replacement I&D Seroma and limited revision Left ADRIAN History of total left hip arthroplasty Social History Smoking Status: Never smoker second hand exposure: No alcohol intake: current alcohol intake frequency: holidays/special occasions only substance use type: denies use current occupational status: other Travel in the last 8 weeks?: None household members: spouse housing: house 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 Today he rates his pain a 4 out of 10. Patient did previously had a right intra-articular knee injection back in December that did provide 90% of improvement. He does state that he started to notice a little bit more pain here recently. He does state that he ended up having 3 blockages and found up getting 2 stents. He states that he is feeling better following this. He states that cardiology did clear him to start going back to the gym. Patient had actively been going in the past however had health issues himself as well as his . He denies any other changes. Patient is still going to see his who had previously had a stroke and is now in [place]. His Bubba has been reviewed. Review of Systems: General: No recent weight changes, no fever, no sleep disturbances Respiratory: No cough, no shortness of air, no recurring pulmonary infections Cardiovascular/peripheral vascular: No chest pain, no palpitations, no edema, no shortness of breath Gastrointestinal: No new onset incontinence, normal bowel movements reported Genitourinary: No new onset incontinence Musculoskeletal: Right knee pain Psychiatric: [Normal mood/affect] Neurological: [Denies weakness in extremities], [denies balance issues] Pain at rest (0-10 scale): 4 Objective Objective:: Physical Exam: General: Alert and oriented x3, no acute distress, pleasant and cooperative Lungs: Respirations even and unlabored, symmetrical chest expansion Eyes: PERRL Musculoskeletal: Flexion and extension of right knee somewhat guarded secondary to pain, [antalgic gait noted] Neurological: Speech clear, no gross sensory deficit Has patient had previous pain injection?: No Conservative treatment options previously tried: Home exercise plan Length of treatment: Longer than 12 weeks Meds Home Medications and Allergies Home Medications ?Medication ?Instructions ?Recorded ?Confirmed ?Type cyclobenzaprine 10 mg tablet 10 mg PO DAILYP PRN BACK PAIN 09/02/19 02/24/25 History magnesium 200 mg tablet 200 mg PO DAILY Supplement 0 03/15/21 02/24/25 History diclofenac sodium 75 mg See Rx Instructions .Route 0 02/25/24 02/24/25 Rx tablet,delayed release .COMPLEX #60 tabs aspirin 81 mg tablet,delayed 81 mg PO DAILY #30 tabs 0 01/06/25 02/24/25 Rx release (Adult Aspirin Regimen) amlodipine 10 mg tablet 10 mg PO DAILY Hypertension #30 02/24/25 02/24/25 Rx tabs clopidogrel 75 mg tablet (Plavix) 75 mg PO DAILY #30 t abs 02/24/25 02/24/25 Rx losartan 50 mg-hydrochlorothiazide 1 tab PO DAILY #30 tabs 02/24/25 02/24/25 Rx 12.5 mg tablet rosuvastatin 40 mg tablet (Crestor) 40 mg PO DAILY #30 tabs 02/24/25 02/24/25 Rx New Prescriptions to Start Prescriptions: Allergies Allergy/AdvReac Type Severity Reaction Status Date / Time No Known Allergies Allergy Verified 02/24/25 11:20 Assessment and Plan *Assessment and plan (1) Right knee pain: Status: Acute Category: Medical Code(s): M25.561 - Pain in right knee Plan I will order the patient a compounded cream and see him back in 2 weeks to see how he is doing with the topical. We will definitely be planning on repeating his prior intra-articular injection in the future. Patient agrees with this plan of care. Patient has been instructed to contact the clinic with any concerns before the next appointment. Dr. Santiago has reviewed this note and agrees with this plan of care. This note was dictated using voice recognition software and make contain errors or omissions. All injections are used with Lidocaine, Bupivacaine and dexamethasone. Occasionally urine drug screen is needed to verify patient's compliance with our office pain contract. This is ordered based off specific treatments related to chronic pain with the potential to abuse certain medications.
[2025-02-25 13:33] VITALS: BP 132/62; PULSE 59; RESP 18; O2SAT 98; BMI 39.2
== END 2025-02-25 23:59 | disposition home or self-care (01) ==
LOC: SC.PAIN 13:05
PROVIDERS: PCP Family Medicine; Visit Provider Nurse Practitioner Family
DX: M25.561 Pain in right knee (principal)
CPT/HCPCS: 99212; G0463

== ENCOUNTER 2025-03-05 09:44 | Outpatient (RCR) | payer OTHER, SELFPAY | END 2025-03-09 08:00 | disposition home or self-care (01) | LOC: CR 09:44 | PROVIDERS: Visit Provider Internal Medicine | DX: I89.0 Lymphedema, not elsewhere classified (principal) | CPT/HCPCS: 93798 ==

== ENCOUNTER 2025-03-16 15:15 | Outpatient (POV) | payer OTHER, SELFPAY ==
--- OUTSIDE RECORDS SUMMARY | 2025-03-16 15:17 | XMS_ITS ---
Author Organization Unknown Medications Date Medication Dosage DosageUnit StartDate StopDate StopReason Active DoseQuantity DoseUnit Dispense DispenseUnit Refills NdcCode DrugCode PharmacyId IsPrescription MappedMedication Srcstatus Custom 02/12 00:00 :00 amLODIPine Besylate 10 MG Tablet 1 90 Tablet 0 [id number] 054 Start 02/12 00:00 :00 amLODIPine Besylate 10 MG Tablet 0 90 Tablet 0 [id number] 054 Stop 12/26 00:00 :00 amLODIPine Besylate 10 MG Tablet 1 90 Tablet 0 [id number] 054 Taking 11/18 00:00 :00 amLODIPine Besylate 10 MG Tablet 1 90 Tablet 0 [id number] 054 Start 11/18 00:00 :00 amLODIPine Besylate 10MG Tablet 0 90 Tablet 3 [id number] 654 Stop 09/05 00:00 :00 amLODIPine Besylate 10MG Tablet 1 90 Tablet 3 [id number] 654 P Taking 08/04 00:00 :00 amLODIPine Besylate 10MG Tablet 1 90 Tablet 3 [id number] 654 P Taking 07/23 00:00 :00 amLODIPine Besylate 10MG Tablet 1 90 Tablet 3 [id number] 654 P Taking 05/05 00:00 :00 amLODIPine Besylate 10MG Tablet 1 90 Tablet 3 [id number] 654 P Taking 03/27 00:00 :00 amLODIPine Besylate 10MG Tablet 1 90 Tablet 3 [id number] 654 P Taking 12/26 00:00 :00 Clotrimazol e-Betametha sone 1-0.05 % Cream 01/02/2024 00:00:00 0 30 Gram 3 [id number] 5 815 P Not Taking 09/05 00:00 :00 Clotrimazol e-Betametha sone 1-0.05 % Cream 01/02/2024 00:00:00 0 30 Gram 3 [id number] 5 815 P Not Taking 08/04 00:00 :00 Clotrimazol e-Betametha sone 1-0.05 % Cream 01/02/2024 00:00:00 0 30 Gram 3 [id number] 5 815 P Not Taking 07/23 00:00 :00 Clotrimazol e-Betametha sone 1-0.05 % Cream 01/02/2024 00:00:00 0 30 Gram 3 [id number] 5 815 P Not Taking 05/05 00:00 :00 Clotrimazol e-Betametha sone 1-0.05 % Cream 01/02/2024 00:00:00 0 30 Gram 3 [id number] 5 815 P Not Taking 03/27 00:00 :00 Clotrimazol e-Betametha sone 1-0.05 % Cream 01/02/2024 00:00:00 0 30 Gram 3 [id number] 5 815 P Not Taking 09/05 00:00 :00 Cyclobenzap rine HCl 10 MG Tablet 0 1070 1999 709 P Stop 09/05 00:00 :00 Cyclobenzap rine HCl 10 MG Tablet 1 90 2 1070 1999 709 P Taking 08/04 00:00 :00 Cyclobenzap rine HCl 10 MG Tablet 1 90 2 1070 1999 709 P Taking 07/23 00:00 :00 Cyclobenzap rine HCl 10 MG Tablet 1 90 2 1070 1999 709 P Taking 05/05 00:00 :00 Cyclobenzap rine HCl 10 MG Tablet 1 90 2 1070 1999 709 P Taking 03/27 00:00 :00 Cyclobenzap rine HCl 10 MG Tablet 1 90 2 1070 1999 709 P Taking 12/26 00:00 :[address] tab 0 180 3 76385 020 111 P Not Taking 09/05 00:00 :[address] tab 0 180 3 20765 020 111 P Not Taking 08/04 00:00 :00 Diclofenac [address] tab 0 180 3 04586 020 111 P Not Taking 07/23 00:00 :00 Diclofenac S[address] tab 0 180 3 85459 020 111 P Not Taking 05/05 00:00 :00 Diclofenac S[address] tab 0 180 3 91404 020 111 P Not Taking 03/27 00:00 :00 Diclofenac Sodium [address] tab 0 180 3 59858 020 111 P Not Taking 03/24 00:00 :[address] D[address]lofenac [address] tab 1 180 3 23422 020 111 P Refill 12/26 00:00 :00 Fexofenadin e HCl 180 MG Tablet 09/05/2023 00:00:00 0 14 Tablet 1 46937 044 000 P Not Taking 09/05 00:00 :00 Fexofenadin e HCl 180 MG Tablet 09/05/2023 00:00:00 0 14 Tablet 1 42966 044 000 P Not Taking 08/04 00:00 :00 Fexofenadin e HCl 180 MG Tablet 09/05/2023 00:00:00 0 14 Tablet 1 55801 044 000 P Not Taking 07/23 00:00 :00 Fexofenadin e HCl 180 MG Tablet 09/05/2023 00:00:00 0 14 Tablet 1 10093 044 000 P Not Taking 05/05 00:00 :00 Fexofenadin e HCl 180 MG Tablet 09/05/2023 00:00:00 0 14 Tablet 1 88733 044 000 P Not Taking 03/27 00:00 :00 Fexofenadin e HCl 180 MG Tablet 09/05/2023 00:00:00 0 14 Tablet 1 00420 044 000 P Not Taking 12/26 00:00 :00 FLUoxetine HCl 10 MG Capsule 09/05/2024 00:00:00 1 30 1 [id number] 2 002 P Taking 09/05 00:00 :00 FLUoxetine HCl 10 MG Capsule 09/05/2024 00:00:00 1 30 1 [id number] 2 002 P Start 12/26 00:00 :00 Losartan Potassium-H CTZ 50-12.5 MG Tablet 1 60 3 [id number] 010 Taking 09/12 00:00 :00 Losartan Potassium-H CTZ 50-12.5 MG Tablet 1 60 3 [id number] 010 Start 09/12 00:00 :00 Losartan Potassium-H CTZ 50-12.5 MG Tablet 0 60 3 [id number] 010 Stop 09/05 00:00 :00 Losartan Potassium-H CTZ 50-12.5 MG Tablet 1 60 3 19321110 010 P Refill 09/05 00:00 :00 Losartan Potassium-H CTZ 50-12.5 MG Tablet 1 30 Tablet 0 [id number] 010 Taking 08/18 00:00 :00 Losartan Potassium-H CTZ 50-12.5 MG Tablet 1 30 Tablet 0 [id number] 010 Start 08/18 00:00 :00 Losartan Potassium-H CTZ 50-12.5 MG Tablet 0 30 Tablet 0 [id number] 010 Stop 08/04 00:00 :00 Losartan Potassium-H CTZ 50-12.5 MG Tablet 1 30 Tablet 0 [id number] 010 Taking 07/23 00:00 :00 Losartan Potassium-H CTZ 50-12.5 MG Tablet 1 30 Tablet 0 [id number] 010 Taking 07/21 00:00 :00 Losartan Potassium-H CTZ 50-12.5 MG Tablet 1 30 Tablet 0 [id number] 010 Start 07/21 00:00 :00 Losartan Potassium-H CTZ 50-12.5 MG Tablet 0 30 Tablet 0 [id number] 010 Stop 06/23 00:00 :00 Losartan Potassium-H CTZ 50-12.5 MG Tablet 1 30 Tablet 0 [id number] 010 Start 06/23 00:00 :00 Losartan Potassium-H CTZ 50-12.5 MG Tablet 0 30 Tablet 0 [id number] 010 Stop 05/05 00:00 :00 Losartan Potassium-H CTZ 50-12.5 MG Tablet 1 30 Tablet 0 [id number] 010 P Taking 04/30 00:00 :00 Losartan Potassium-H CTZ 50-12.5 MG Tablet 1 30 Tablet 0 [id number] 010 P Refill 04/18 00:00 :00 Losartan Potassium-H CTZ 50-12.5 MG Tablet 1 30 Tablet 0 [id number] 010 Start 04/18 00:00 :00 Losartan Potassium-H CTZ 50-12.5 MG Tablet 0 30 3 [id number] 710 Stop 03/27 00:00 :00 Losartan Potassium-H CTZ 50-12.5 MG Tablet 01/02/2024 00:00:00 1 30 3 [id number] 6 710 P Taking 12/26 00:00 :00 Promethazin e-DM 6.25-15 MG/5ML Syrup 08/04/2024 00:00:00 0 140 ML 0 [id number] 5 701 P Not Taking 09/05 00:00 :00 Promethazin e-DM 6.25-15 MG/5ML Syrup 08/04/2024 00:00:00 0 140 ML 0 [id number] 5 701 P Not Taking 08/04 00:00 :00 Promethazin e-DM 6.25-15 MG/5ML Syrup 08/04/2024 00:00:00 1 140 ML 0 2106423 5 701 P Start 12/26 00:00 :00 tiZANidine HCl 4 MG Tablet 09/05/2024 00:00:00 1 30 Tablet 1 48308 641 861 P Taking 09/05 00:00 :00 tiZANidine HCl 4 MG Tablet 09/05/2024 00:00:00 1 30 Tablet 1 17800 641 861 P Start 12/26 00:00 :00 traMADol HCl 50 MG Tablet 02/28/2022 00:00:00 1 360 Tablet 0 [id number] 101 P Taking 09/05 00:00 :00 traMADol HCl 50 MG Tablet 02/28/2022 00:00:00 1 360 Tablet 0 [id number] 101 P Taking 08/04 00:00 :00 traMADol HCl 50 MG Tablet 02/28/2022 00:00:00 1 360 Tablet 0 [id number] 101 P Taking 07/23 00:00 :00 traMADol HCl 50 MG Tablet 02/28/2022 00:00:00 1 360 Tablet 0 [id number] 101 P Taking 05/05 00:00 :00 traMADol HCl 50 MG Tablet 02/28/2022 00:00:00 1 360 Tablet 0 [id number] 101 P Taking 03/27 00:00 :00 traMADol HCl 50 MG Tablet 02/28/2022 00:00:00 1 360 Tablet 0 [id number] 101 P Taking 12/26 00:00 :00 Zithromax Z-Dell 250 MG Tablet 09/05/2023 00:00:00 0 1 0 [id number] 6 075 P Not Taking 09/05 00:00 :00 Zithromax Z-Dell 250 MG Tablet 09/05/2023 00:00:00 0 1 0 [id number] 6 075 P Not Taking 08/04 00:00 :00 Zithromax Z-Dell 250 MG Tablet 09/05/2023 00:00:00 0 1 0 [id number] 6 075 P Not Taking 07/23 00:00 :00 Zithromax Z-Dell 250 MG Tablet 09/05/2023 00:00:00 0 1 0 [id number] 6 075 P Not Taking 05/05 00:00 :00 Zithromax Z-Dell 250 MG Tablet 09/05/2023 00:00:00 0 1 0 [id number] 6 075 P Not Taking 03/27 00:00 :00 Zithromax Z-Dell 250 MG Tablet 09/05/2023 00:00:00 0 1 0 [id number] 6 075 P Not Taking
--- OUTSIDE RECORDS SUMMARY | 2025-03-16 15:17 | XMS_ITS | Clinical Summary ---
Author Organization Healthcare Address [address] [place] [address] Care Team Providers Care Floor Covering Installer Name Role Phone Yoan Foote MD Primary Care Provider [phone] Allergies No known active allergies Medications diclofenac [...] Date Last Done Comments [facility]-Depression Screening 1946 [facility]-/Child/Adol SDOH Screenings 1946 [facility]- SDOH Screenings 1964 [facility]-Adult SDOH Screenings 1964 [facility]-DTaP,Tdap,and Td Vaccine s (1 - Tdap) 1965 [facility]-Pneumococcal Vaccine: 50 + Years (1 of 1 - PCV) 1996 [facility]-Zoster Vaccines (1 of 2) 1996 [facility]-RSV Vaccine: 60+ Years o r (1 - 1-dose 75+ series) 2021 [id number] Vaccine (1 - 20 24-25 season) 2024 [...] [place] [address] MEDICARE Care Teams Floor Covering Installer Relationship Specialty Start Date End Date Yoan Foote MD [address] [place] [address] #1 #1 YOJANA Jones [id number] PCP - General 12/17/20
--- OUTSIDE RECORDS SUMMARY | 2025-03-16 15:17 | XMS_ITS | Clinical Summary ---
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
[2025-03-16 15:27] VITALS: BP 133/57; PULSE 69; RESP 14; O2SAT 69; BMI 39.2
--- NOTE | 2025-03-16 15:31 | EXP.PAIN.SOA ---
[facility] Disclaimer: The information contained in this section may have been updated after the patient was seen, as this information can be updated by other users. Medical History Atypical angina SOB (shortness of breath) on exertion Abnormal findings on diagnostic imaging of heart and coronary circulation Right knee pain Osteoarthritis of right hip Edema of lower extremity Hypertension Surgical History Status post left hip replacement I&D Seroma and limited revision Left ADRIAN History of total left hip arthroplasty Social History Smoking Status: Never smoker second hand exposure: No alcohol intake: current alcohol intake frequency: holidays/special occasions only substance use type: denies use current occupational status: other Travel in the last 8 weeks?: None household members: spouse housing: house 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 Today he rates his pain a 5 out of 10. He denies any new falls or injuries. He does state that he still having the pain primarily in his back and hip. At our last visit we did discuss the possibility of an intra-articular knee injection. Today he states overall he feels like it is maintaining. He states the more he has noticed over the last couple weeks he feels like it may in fact be more related all to his low back and hip area. 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 Patient does feel like overall it is still somewhat manageable. He did get the compounded cream and felt like it did help some. His Bubba has been reviewed and is appropriate. Review of Systems: General: No recent weight changes, no fever, no sleep disturbances Respiratory: No cough, no shortness of air, no recurring pulmonary infections Cardiovascular/peripheral vascular: No chest pain, no palpitations, no edema, no shortness of breath Gastrointestinal: No new onset incontinence, normal bowel movements reported Genitourinary: No new onset incontinence Musculoskeletal: Low back pain, hip pain right sided Psychiatric: [Normal mood/affect] Neurological: [Denies weakness in extremities], [denies balance issues] Pain at rest (0-10 scale): 5 Objective Objective:: Physical Exam: General: Alert and oriented x3, no acute distress, pleasant and cooperative Lungs: Respirations even and unlabored, symmetrical chest expansion Eyes: PERRL Musculoskeletal: Flexion and extension of lumbar [spine] somewhat guarded secondary to pain, [antalgic gait noted] Neurological: Speech clear, no gross sensory deficit Has patient had previous pain injection?: No Conservative treatment options previously tried: Home exercise plan Length of treatment: Longer than 12 weeks Meds Home Medications and Allergies Home Medications ?Medication ?Instructions ?Recorded ?Confirmed ?Type cyclobenzaprine 10 mg tablet 10 mg PO DAILYP PRN BACK PAIN 09/02/19 03/16/25 History magnesium 200 mg tablet 200 mg PO DAILY Supplement 03/15/21 03/16/25 History diclofenac sodium 75 mg See Rx Instructions .Route 02/25/24 03/16/25 Rx tablet,delayed release .COMPLEX #60 tabs aspirin 81 mg tablet,delayed 81 mg PO DAILY #30 tabs 01/06/25 03/16/25 Rx release (Adult Aspirin Regimen) amlodipine 10 mg tablet 10 mg PO DAILY Hypertension #30 02/24/25 03/16/25 Rx tabs losartan 50 mg-hydrochlorothiazide 1 tab PO DAILY #30 tabs 02/24/25 03/16/25 Rx 12.5 mg tablet rosuvastatin 40 mg tablet (Crestor) 40 mg PO DAILY #30 tabs 02/24/25 03/16/25 Rx clopidogrel 75 mg tablet (Plavix) 75 mg PO DAILY #30 tabs 03/16/25 03/16/25 Rx New Prescriptions to Start Prescriptions: Allergies Allergy/AdvReac Type Severity Reaction Status Date / Time No Known Allergies Allergy Verified 02/24/25 11:20 Assessment and Plan *Assessment and plan (1) Bilateral sacroiliitis: Status: Acute Category: Medical Code(s): M46.1 - Sacroiliitis, not elsewhere classified Plan I did discuss with the patient that in future he may benefit from additional SI injections and that we can definitely follow-up with this in future. Patient will return to clinic in 1 month for reevaluation of symptoms and plan of care. Patient has been instructed to contact the clinic with any concerns before the next appointment. Dr. Santiago has reviewed this note and agrees with this plan of care. This note was dictated using voice recognition software and make contain errors or omissions. All injections are used with Lidocaine, Bupivacaine and dexamethasone. Occasionally urine drug screen is needed to verify patient's compliance with our office pain contract. This is ordered based off specific treatments related to chronic pain with the potential to abuse certain medications.
== END 2025-03-16 23:59 | disposition home or self-care (01) ==
LOC: SC.PAIN 15:16
PROVIDERS: PCP Family Medicine; Visit Provider Nurse Practitioner Family
DX: M54.50 Low back pain, unspecified (principal); M25.551 Pain in right hip; M46.1 Sacroiliitis, not elsewhere classified
CPT/HCPCS: 99212; G0463